=== PATIENT | male | born 1960 | race Caucasian/White ===

== ENCOUNTER 2023-04-17 06:30 | Outpatient (OUT) | payer OTHER, SELFPAY ==
[2023-04-17 06:52] LABS: Basophils Percent Auto 0.5 % (0.2-2.0); Eosinophils Absolute Auto 0.1 10^3/uL (0.0-0.7); Eosinophils Percent Auto 2.1 % (0.9-7.0); Hematocrit 43.3 % (42.0-54.0); Hemoglobin 14.8 g/dL (14.0-18.0); Immature Granulocytes Abs Auto 0.01 10^3/uL (0.00-0.03); Immature Granulocytes Pct Auto 0.2 % (0.0-0.5); Lymphocytes Absolute Auto 1.6 10^3/uL (1.2-3.8); Lymphocytes Percent Auto 28.1 % (20.5-60.0); Mean Corpuscular HGB Conc 34.2 g/dL (29.9-35.2); Mean Corpuscular Hemoglobin 30.5 pg (25.9-34.0); Mean Corpuscular Volume 89.1 fL (80.0-94.0); Mean Platelet Volume 9.9 fL (9.5-13.5); Monocytes Absolute Auto 0.5 10^3/uL (0.3-0.8); Monocytes Percent Auto 8.9 % (1.7-12.0); Neutrophils Absolute Auto 3.4 10^3/uL (1.4-6.5); Neutrophils Percent Auto 60.2 % (43.0-75.0); Platelet Count 201 10^3/uL (150-450); Red Blood Count 4.86 10^6/uL (4.70-6.10); Red Cell Distribution Width 12.8 % (11.0-15.0); White Blood Count 5.6 10^3/uL (4.0-11.0)
[2023-04-17 10:56] LABS: Alanine Aminotransferase 46 U/L (16-63); Albumin Globulin Ratio 1.1; Albumin Level 3.7 g/dL (3.4-5.0); Alkaline Phosphatase 54 U/L (46-116); Anion Gap 11.2; Aspartate Amino Transferase 23 U/L (15-37); Bilirubin Direct 0.1 mg/dL (0.0-0.2); Bilirubin Total 0.4 mg/dL (0.2-1.0); Carbon Dioxide 27.9 mmol/L (21.0-32.0); Chloride 106 mmol/L (98-107); Cholesterol 179 mg/dL (<=200); Estimated GFR (African America >60 (>=60); Estimated GFR (Non-African Ame 54 (>=60); Globulin 3.4 g/dL; Glucose 99 mg/dL (74-106); HDL Cholesterol 45 mg/dL (40-60); LDL Cholesterol Calculated 121.6 mg/dL; Potassium 4.1 mmol/L (3.5-5.1); Sodium 141 mmol/L (136-145); Total Protein 7.1 g/dL (6.4-8.2); Triglycerides 62 mg/dL (<=150); VLDL CHOLESTEROL 12.4 mg/dL
[2023-04-18 10:59] LABS: PSA, Free 0.87 ng/mL; Prostate Specific Ag 4.7 ng/mL (0.0-4.0)
== END 2023-04-17 06:31 ==
LOC: LAB 06:32
PROVIDERS: PCP Family Medicine; Visit Provider Family Medicine
DX: E78.00 Pure hypercholesterolemia, unspecified (principal)
CPT/HCPCS: 36415; 80048; 80061; 80076; 84153; 84154; 85025

== ENCOUNTER 2023-10-16 06:31 | Outpatient (OUT) | payer OTHER, SELFPAY ==
[2023-10-16 06:43] LABS: Basophils Absolute Auto 0.1 10^3/uL (0.0-0.1); Basophils Percent Auto 0.6 % (0.2-2.0); Eosinophils Absolute Auto 0.1 10^3/uL (0.0-0.7); Eosinophils Percent Auto 1.4 % (0.9-7.0); Hematocrit 41.2 % (42.0-54.0); Hemoglobin 14.3 g/dL (14.0-18.0); Immature Granulocytes Abs Auto 0.01 10^3/uL (0.00-0.03); Immature Granulocytes Pct Auto 0.1 % (0.0-0.5); Lymphocytes Absolute Auto 1.6 10^3/uL (1.2-3.8); Lymphocytes Percent Auto 20.2 % (20.5-60.0); Mean Corpuscular HGB Conc 34.7 g/dL (29.9-35.2); Mean Corpuscular Hemoglobin 30.6 pg (25.9-34.0); Mean Corpuscular Volume 88.2 fL (80.0-94.0); Mean Platelet Volume 9.1 fL (9.5-13.5); Monocytes Absolute Auto 0.7 10^3/uL (0.3-0.8); Neutrophils Absolute Auto 5.5 10^3/uL (1.4-6.5); Neutrophils Percent Auto 68.7 % (43.0-75.0); Platelet Count 258 10^3/uL (150-450); Red Blood Count 4.67 10^6/uL (4.70-6.10); Red Cell Distribution Width 12.2 % (11.0-15.0)
[2023-10-16 08:09] LABS: Alanine Aminotransferase 23 U/L (16-63); Albumin Globulin Ratio 0.9; Albumin Level 3.3 g/dL (3.4-5.0); Alkaline Phosphatase 66 U/L (46-116); Anion Gap 13.6; Aspartate Amino Transferase 11 U/L (15-37); BUN Creatinine Ratio 16.8; Bilirubin Direct 0.1 mg/dL (0.0-0.2); Bilirubin Total 0.5 mg/dL (0.2-1.0); Calcium 8.6 mg/dL (8.5-10.1); Carbon Dioxide 26.3 mmol/L (21.0-32.0); Chloride 105 mmol/L (98-107); Chol HDL Ratio 4.7; Cholesterol 193 mg/dL (<=200); Estimated GFR (African America >60 (>=60); Estimated GFR (Non-African Ame >60 (>=60); Globulin 3.7 g/dL; Glucose 95 mg/dL (74-106); HDL Cholesterol 41 mg/dL (40-60); LDL Cholesterol Calculated 142.6 mg/dL; Potassium 3.9 mmol/L (3.5-5.1); Sodium 141 mmol/L (136-145); Triglycerides 47 mg/dL (<=150); VLDL CHOLESTEROL 9.4 mg/dL
[2023-10-17 14:21] LABS: PSA, Free 0.82 ng/mL; Prostate Specific Ag 5.7 ng/mL (0.0-4.0)
== END 2023-10-16 06:32 | disposition home or self-care (01) ==
LOC: LAB 06:32
PROVIDERS: PCP Family Medicine; Visit Provider Family Medicine
DX: E78.00 Pure hypercholesterolemia, unspecified (principal); R97.20 Elevated prostate specific antigen [PSA]
CPT/HCPCS: 36415; 80048; 80061; 80076; 84153; 84154; 85025

== ENCOUNTER 2024-04-22 06:32 | Outpatient (OUT) | payer OTHER, SELFPAY ==
--- OUTSIDE RECORDS SUMMARY | 2024-04-22 06:35 | XMS_ITS | CCD ---
Author Organization [facility] Care Team Providers Care Stockbroker Name Role Phone JESUS MANUELR, DR CHURCHILL Admitting Unavailable OBERER, DR CHURCHILL Attending Unavailable OBERER, DR CHURCHILL Primary Care Unavailable OBERER, DR CHURCHILL Consulting Unavailable OBERER, DR CHURCHILL Admitting Unavailable OBERER, DR CHURCHILL Attending Unavailable OBERER, DR CHURCHILL Primary Care Unavailable OBERER, DR CHURCHILL Consulting Unavailable Tray Reese Unavailable TRAY REESE Primary Care Physician Unavailable Primary Care Provider Unavailmauricio e DO Tray Reese Primary Care Provider [phone] DO Eliezer Tejada Attending Provider Tray Reese Primary Care Unavailable Eliezer Tejada Attending Unavailable Eliezer Tejada Admitting Unavailable John LAYTON Attending Unavailable TRAY REESE Referring Unavailable John LAYTON Attending Unavailable Allergies Allergy Classification Reported Allergen(s) Allergy Type Date of Onset Reaction(s) Facility (7 sources) Lovastatin; Translations: [lovastatin] Drug Allergy Joint Pain [facility] Repository (6 sources) Pravastatin Drug Allergy ED,Leg weakness [facility] Other (7 sources) Decongestant; Translations: [Decongestant] Drug allergy Insomnia [facility] Repository (1 source) Pravastatin; Translations: [Pravachol] Drug Allergy [facility] Medications Current Medications Medication Drug Class(es) Dates Sig (Normalized) Sig (Original) Multivitamin preparation (1 source) Start: 05-03-2019 take 1 tablet by mouth once daily Multivitamin Active 1 TAB PO Daily May 03, 2019 12:00am Completed/Discontinued Medications Medication Drug Class(es) Dates Sig (Normalized) Sig (Original) Triamcinolone (12 sources) Corticosteroid Start: 08-21-2020 Kenalog -40 mg Aug, 40 mg Start: 03-23-2017 Kenalog -40 mg March, Problems Problem Classification Problem Date Documented Da te Episodic/Chronic Crushing injury or internal injury (3 sources) Injury of urethra; Translations: [Other injury of urethra, initial encounter] Onset: 06-12-2022 Episodic Disorders of lipid metabolism (11 sources) Pure hypercholesterolemia , unspecified; Translations: [Hypercholesterolemi a] Onset: 04-28-2022 01-26-2014 Chronic Osteoarthritis (16 sources) Osteoarthritis of knee; Translations: [Unilateral primary osteoarthritis, left knee] Onset: 04-17-2022 Resolved: 04-17-2022 Chronic Other connective tissue disease (3 sources) Synovial cyst of popliteal space; Translations: [Synovial cyst of popliteal space [[place]], left knee] Episodic Other connective tissue disease (2 sources) Impingement syndrome of shoulder region 01-26-2014 Episodic Other diseases of kidney and ureters (1 source) Disorder of kidney and ureter, unspecified Episodic Other gastrointestinal disorders (1 source) Occult blood in stools; Translations: [Other fecal abnormalities] 05-05-2019 Episodic Other male genital disorders (8 sources) Impotence; Translations: [Male erectile dysfunction, unspecified] 06-09-2022 Chronic Other male genital disorders (7 sources) Induratio penis plastica; Translations: [Induration penis plastica] Onset: 07-06-2022 06-09-2022 Chronic Other male genital disorders (1 source) Deviation of penis; Translations: [Other specified disorders of penis] Onset: 07-06-2022 07-06-2022 Chronic Other male genital disorders (5 sources) Other male erectile dysfunction; 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 of organic origin] Onset: 07-06-2022 07-06-2022 Chronic Other male genital disorders (1 source) Induration penis plastica Chronic Other non-traumatic joint disorders (2 sources) Shoulder pain 01-26-2014 Episodic Other nutritional; endocrine; and metabolic disorders (8 sources) Body mass index 30+ - obesity; Translations: [Obesity, unspecified] 06-12-2022 Chronic Other nutritional; endocrine; and metabolic disorders (2 sources) Obesity, unspecified Onset: 04-17-2022 Resolved: 04-17-2022 Chronic Other nutritional; endocrine; and metabolic disorders (1 source) Obese class I; Translations: [Body mass index (BMI) 34.0-34.9, adult] Onset: 06-12-2022 Chronic Other screening for suspected conditions (not mental disorders or infectious disease) (15 sources) Elevated prostate specific antigen [PSA]; Translations: [Encounter for screening for malignant neoplasm of prostate] Onset: 04-17-2022 Resolved: 04-27-2022 Episodic Other skin disorders (3 sources) Epidermoid cyst of skin; Translations: [Sebaceous cyst] Episodic Unclassified (1 source) Left lower quadrant abdominal swelling, mass and lump; Translations: [Left lower quadrant abdominal swelling, mass and lump] Onset: 07-16-2022 Results Test Name Value Interpretation Reference Range Facil ity Patient Letter FTon 2023 Patient Letter [facility] [address] [address] December 08, 2023 FATOU [place]ROYO [address] [place] [address] : 1960 Dear Fatou Arroyo, I am corresponding to you by certified mail because you have a medical condition, Elevated PSA, which requires follow up. It was recommended that you follow up with me but you cancelled your appointment. The concern is that prostate cancer can be present, given the PSA elevation. Please contact my office at your earliest convenience and we will reschedule your appointment so I can closely monitor your condition. I cannot be responsible for your urologic care if you do not follow up as recommended. Sincerely, John Layton M.D., FACS [facility] CALIN WATERS, John Davila [facility] Lab Reportson 11-11-2023 Lab Reports [id number] [facility] Sandeep 07-16-2022 L - -------- Specimen: [id number] Received: 07/16/22 Status: MAKI Holt Num: [id number] Spec Type: Surgical Subm Dr: Eliezer Tejada DO Tissues: A Soft Tissue/Surgical Margin-Other than Tumor,Mass,Lip or Katerine (LT LOWER ABDOM Procedures: HE Stain, Gross/Micro L4 -------- Age/ Patient Sex Location Account Attending Physician -------- Fatou Arroyo JR/Jesus BOWDEN [id number] Eliezer Tejada DO -------- SPEC NUM: [id number] RECD: 07/16/22 STATUS: MAKI HOLT NUM: [id number] ANGEL: 07/16/[address]: Eliezer Tejada DO ENTERED: 07/16/22-13[address] [facility] DR: [place] [facility] SPEC TYPE: Surgical DEPT: S ORDERED: HE Stain, Gross/Micro L4 ORDERED: HE Stain, Gross/Micro L4 Pathological Diagnosis Soft tissue, left lower abdomen, mass, excision: - Lipoma. Clinical Information Left lower abdominal soft tissue mass Gross Description Received in formalin labeled with the patient's name, number and left lower abdomen soft tissue mass is a 7.3 x 2.4 cm ellipse of ac-white skin excised to a depth of 2.5 cm. The specimen is inked and sectioned the cut surface is homogeneous, yellow-ac, lobular.. Grab Hooker sections are submitted in one cassette labeled A1. Microscopic Description One glass slide with H E stained material has been examined. The pathologist's interpretation is performed at [facility]. The microscopic findings support the above pathologic diagnosis. -------- Specimen: [id number] Received: 07/16/22 Status: MAKI Holt Num: [id number] Spec Type: Surgical Subm Dr: Eliezer Tejada DO Tissues: A Soft Tissue/Surgical Margin-Other than Tumor,Mass,Lip or Katerine (LT LOWER ABDOM Procedures: HE Stain, Gross/Micro L4 -------- Patient: Fatou Arroyo JR [id number] (Continued) -------- Specimen: [id number] Received: 07/16/22 (Continued) Signed (signature on file) Artie Flor MD 07/19/22 2318 -------- Specimen: [id number] Received: 07/16/22 Status: MAKI Holt Num: [id number] Spec Type: Surgical Subm Dr: Eliezer Tejada DO Tissues: A Soft Tissue/Surgical Margin-Other than Tumor,Mass,Lip or Katerine (LT LOWER ABDOM Procedures: HE Stain, Gross/Micro L4 -------- Patient: Fatou Arroyo JR [id number] (Continued) -------- Specimen: [id number] Received: 07/16/22 (Continued) CPT Codes 84144 -------- -------- Specimen: [id number] Received: 07/16/22 Status: MAKI Holt Num: [id number] Spec Type: Surgical Subm Dr: Eliezer Tejada DO Tissues: A Soft Tissue/Surgical Margin-Other than Tumor,Mass,Lip or Katerine (LT LOWER ABDOM Procedures: HE Stain, Gross/Micro L4 -------- Patient: Fatou Arroyo JR [id number] (Continued) -------- Signed (signature on file) Artie Flor MD 07/19/22 2318 [facility] CNOVon 07-06-2022 CNOV Office Visit (UROLMN ) FATOU ARROYO ([id number]) 1960 M Date Time Provider Department 07/06/22 10:00 AM FATOU GAFFNEY During your visit today, we recorded the following information about you: Pulse Blood pressure Weight Height 49/minute 165/90 104.3 kg 1.753 m Fatou Gaffney MD 07/06/2022 7:13 PM Signed [facility] NEW PATIENT HISTORY AND PHYSICAL EXAM PATIENT INFO: Fatou Arroyo 61 year old REFERRING M.D.: Jude Mei MD [address] [place] [facility] [address] This consult was requested by Dr. Mei for an opinion regarding peyronies disease, and my final recommendations will be communicated to the requesting health care provider by way of the shared medical record for internal providers or letter via the [employer] for external providers. HISTORY Chief Complaint: peyronie's disease HPI: 61 year old male with history of HLD, obesity, elevated PSA, and ED who was referred for management of Peyronie's disease. Patient saw Dr. Layton 06/12/22 for elevated PSA (4.6, fPSA 17.4%) - plan to monitor closely (return to clinic 4 months for recheck). Has always had a slight curve to the left of midline. Endorses a curve both to the left and dorsal which he first noticed about a year ago. Endorses significant length loss since he noticed the curve. Onset of curvature: 1 year ago Degree of primary curvature: not sure Direction of primary curvature: L Degree of secondary curvature: UK degrees Direction of secondary curvature: dorsal Known or probable prior injury or buckling event: no Pain with erections previously: yes Pain with erections in the past month: more of a pulling sensation with erections than pain now ED: Partial or insufficient erections partial or insufficient erections PDEI but does not really have satisfactory erections or has an erection that does not last. Him and his have not had intercourse in a long time because of this Prior therapies:none Is the patient able to have intercourse? N Personal history of Dupuytren's contracture or Ledderhose's disease none MEDICATIONS: No current outpatient medications on file. No current facility-administered medications for this visit. MEDICATION ALLERGIES: ALLERGIES No Known Allergies No past medical history on file. No past surgical history on file. FAMILY HISTORY: NEGATIVE: No related previous family history. FAMILY HISTORY 1st Degree Relative: no dupuytren's contracture of ledderhose REVIEW OF SYSTEMS: Constitutional: negative Eyes: negative Ear Nose and Throat: negative Cardiovascular: negative Respiratory: negative Gastrointestinal: negative Musculoskeletal: negative Integumentary: negative Neurological: negative Psychiatric: negative PHYSICAL EXAM: BP 165/90 (BP Site: Left Arm, BP Position: Sitting, BP Cuff Size: Regular Adult) Pulse (!) 49 Ht 175.3 cm (5' 9 ) Wt 104.3 kg (230 lb) BMI 33.97 kg/m? GENERAL: WNL nutrition, no deformities, healthy appearing HEAD AND NECK: NCAT RESP: Unlabored on room air CV: Reg rate ABDOMEN: Soft, NT, ND HERNIAS: None SKIN/LYMPH: No rash, lesions NEURO/PSYCH: Gait normal, AANDOx3 EXTREMITIES: Extremities normal. No deformities, edema, clubbing or skin discoloration. MEDICAL DECISION MAKING: (A1) IMPRESSION: (Diagnostic Possibilities) New or Established 1) Peyronie's disease 2) Organic erectile dysfunction (A2) PLAN: (Management Options) We thoroughly discussed the diagnosis of Peyronie's disease including the etiology and natural history of the disease. Only a small percentage of Peyronie's disease cases improve spontaneously. We discussed the management of Peyronie's disease including penile traction therapy, intralesional injections (Xiaflex) and surgical treatments including plication, and penile prosthesis implantation with straightening maneuvers. Risks and benefits for each therapy were discussed with the patient and all questions were answered. Prema Hanley MD Electronically signed STAFF NOTE: I evaluated the patient and personally participated in the kang components. I agree with the resident's findings and plan as documented and have discussed the case and management of the patient's care with the resident. Patient presents for evaluation of erectile curvature related to Peyronie's disease. Curvature has been present for about a year, dorsal and to the left. He also has some erectile dysfunction for which he uses Viagra with some effect, but he is unsure of the dose. This predated onset (more content not included)... Normal [facility] PSA, FREE AND TOTAL RATIOon 04-29-2022 % Free PSA 17.4 % Normal [facility] Comment on above: Result Comment: The table below lists the probability of prostate cancer for men with non-suspicious GINO results and total PSA between 4 and 10 ng/mL, by patient age (Kym et al, ANKUR 1998, 279:1542). % Free PSA 50-64 yr 65-75 yr 0.00-10.00% 56% 55% 10.01-15.00% 24% 35% 15.01-20.00% 17% 23% 20.01-25.00% 10% 20% >25.00% 5% 9% Please note: Kym et al did not make specific recommendations regarding the use of percent free PSA for any other population of men. Performed By: #### P SAFREE #### [facility] [address] [place] [address] Dr. Shelby Travis Prostate specific Ag [Mass/Vol] 4.6 ng/mL Critically high 0.0-4.0 [facility] Comment on above: Result Comment: Gabino PEREZ methodology. . According to the [employer], Serum PSA should decrease and remain at undetectable levels after radical prostatectomy. The AUA defines biochemical recurrence as an initial PSA value 0.2 ng/mL or greater followed by a subsequent confirmatory PSA value 0.2 ng/mL or greater. Values obtained with different assay methods or kits cannot be used interchangeably. Results cannot be interpreted as absolute evidence of the presence or absence of malignant disease. Performed By: #### P SAFREE #### [facility] [address] [place] [address] Dr. Shelby Travis PSA, Free 0.80 ng/mL Normal N/A [facility] Comment on above: Result Comment: Gabino nunn ECLIA methodology. Performed By: #### P SAFREE #### [facility] [address] [place] [address] Dr. Shelby Travis CBC AUTO DIFFon 04-25-2022 BASO # 0.0 103/ul Normal 0.0-0.1 [facility] Comment on above: Performed By: #### C BC #### [facility] [address] [place] [address] Dr. Shelby Travis Basophils/100 WBC (Bld) 0.3 % Normal 0.2-2.0 [facility] Comment on above: Performed By: #### C BC #### [facility] [address] [place] [address] Dr. Shelby Travis EO # 0.1 103/ul Normal 0.0-0.7 [facility] Comment on above: Performed By: #### C BC #### [facility] [address] [place] [address] Dr. Shelby Travis Eosinophils/100 WBC (Bld) 1.4 % Normal 0.9-7.0 [facility] Comment on above: Performed By: #### C BC #### [facility] [address] [place] [address] Dr. Shelby Travis Erythrocyte distribution width (RBC) [Ratio] 12.9 % Normal 11.0-15.0 [facility] Comment on above: Performed By: #### C BC #### [facility] [address] [place] [address] Dr. Shelby Travis Hematocrit (Bld) [Volume fraction] 44.5 % Normal 42.0-54.0 [facility] Comment on above: Performed By: #### C BC #### [facility] [address] [place] [address] Dr. Shelby Travis Hemoglobin (Bld) [Mass/Vol] 15.3 g/dL Normal 14.0-18.0 [facility] Comment on above: Performed By: #### C BC #### [facility] [address] [place] [address] Dr. Shelby Travis IG # 0.01 10e3/ul Normal 0.00-0.03 [facility] Comment on above: Performed By: #### C BC #### [facility] [address] [place] [address] Dr. Shelby Travis IG % 0.2 % Normal 0.0-0.5 [facility] Comment on above: Performed By: #### C BC #### [facility] [address] [place] [address] Dr. Shelby Travis LYMPH # 1.5 103/ul Normal 1.2-3.8 [facility] Comment on above: Performed By: #### C BC #### [facility] [address] [place] [address] Dr. Shelby Travis Lymphocytes/100 WBC (Bld) 25.5 % Normal 20.5-60.0 [facility] Comment on above: Performed By: #### C BC #### [facility] [address] [place] [address] Dr. Shelby Travis MANUAL DIFF REQ NO Normal [facility] Comment on above: Performed By: #### C BC #### [facility] [address] [place] [address] Dr. Shelby Travis MCH (RBC) [Entitic mass] 30.8 pg Normal 25.9-34.0 [facility] Comment on above: Performed By: #### C BC #### [facility] [address] [place] [address] Dr. Shelby Travis MCHC (RBC) [Mass/Vol] 34.4 g/dL Normal 29.9-35.2 [facility] Comment on above: Performed By: #### C BC #### [facility] [address] [place] [address] Dr. Shelby Travis MCV (RBC) [Entitic vol] 89.5 fL Normal 80.0-94.0 [facility] Comment on above: Performed By: #### C BC #### [facility] [address] [place] [address] Dr. Shelby Travis MONO # 0.9 103/ul Critically high 0.3-0.8 [facility] Comment on above: Performed By: #### C BC #### [facility] [address] [place] [address] Dr. Shelby Travis Monocytes/100 WBC (Bld) 14.5 % Critically high 1.7-12.0 [facility] Comment on above: Performed By: #### C BC #### [facility] [address] [place] [address] Dr. Shelby Travis NEUT # 3.4 103/ul Normal 1.4-6.5 [facility] Comment on above: Performed By: #### C BC #### [facility] [address] [place] [address] Dr. Shelby Travis Neutrophils/100 WBC (Bld) 58.1 % Normal 43.0-75.0 [facility] Comment on above: Performed By: #### C BC #### [facility] [address] [place] [address] Dr. Shelby Travis Platelet mean volume (Bld) [Entitic vol] 9.6 fL Normal 9.5-13.5 [facility] Comment on above: Performed By: #### C BC #### [facility] [address] [place] [address] Dr. Shelby Travis PLT 184 103/ul Normal 150-450 [facility] Comment on above: Performed By: #### C BC #### [facility] [address] [place] [address] Dr. Shelby Travis RBC 4.97 106/ul Normal 4.70-6.10 [facility] Comment on above: Performed By: #### C BC #### [facility] [address] [place] [address] Dr. Shelby Travis WBC 5.9 103/ul Normal 4.0-11.0 [facility] Comment on above: Performed By: #### C BC #### [facility] [address] [place] [address] Dr. Shelby Travis LIPID PROFILEon 04-25-2022 CHOL-HDL RATIO NORM SEE BELOW Normal [facility] Comment on above: Result Comment: 3.3 - 4.4 LOW RISK 4.4 - 7.1 AVERAGE RISK 7.1 - 11.0 MODERATE RISK >11.0 HIGH RISK Performed By: #### L IPID, BMP, LIVER #### [facility] [address] [place] [address] Dr. Shelby Travis Cholesterol [Mass/Vol] 192 mg/dL Normal <=200 [facility] Comment on above: Performed By: #### L IPID, BMP, LIVER #### [facility] [address] [place] [address] Dr. Shelby Travis Cholesterol in HDL [Mass/Vol] 40 mg/dL Normal 40-60 [facility] Comment on above: Performed By: #### L IPID, BMP, LIVER #### [facility] [address] [place] [address] Dr. Shelby Travis Cholesterol in LDL [Mass/Vol] 138.2 mg/dL Normal [facility] Comment on above: Performed By: #### L IPID, BMP, LIVER #### [facility] [address] [address] [address] Shelby Travis Cholesterol.total/ Cholesterol in HDL [Mass ratio] 4.8 {ratio} Normal [facility] Comment on above: Performed By: #### L IPID, BMP, LIVER #### [facility] [address] [address] [address] Shelby Travis HDL NORMAL > or = 60 mg/dl - LO W CARDIOVASCULAR RISK <40 mg/dl - HIGH CARDIOVASCULAR RISK Normal [facility] Comment on above: Performed By: #### L IPID, BMP, LIVER #### [facility] [address] [address] [address] Shelby Travis LDL CALC NORMAL SEE BELOW Normal [facility] Comment on above: Result Comment: <100 mg/dl OPTIMAL 100 - 129 mg/dl NEAR OR ABOVE OPTIMAL 130 - 159 mg/dl BORDERLINE HIGH 160 - 189 mg/dl HIGH >190 mg/dl VERY HIGH Performed By: #### L IPID, BMP, LIVER #### [facility] [address] [address] [address] Shelby Travis Triglyceride [Mass/Vol] 69 mg/dL Normal <=150 [facility] Comment on above: Performed By: #### L IPID, BMP, LIVER #### [facility] [address] [address] [address] Shelby Travis VLDL CALC 13.8 mg/dL Normal [facility] Comment on above: Performed By: #### L IPID, BMP, LIVER #### [facility] [address] [address] [address] Shelby Travis LIVER PROFILEon 04-25-2022 Albumin [Mass/Vol] 3.7 g/dL Normal 3.4-5.0 [facility] Comment on above: Performed By: #### L IPID, BMP, LIVER #### [facility] [address] [address] [address] Shelby Travis Albumin/Globulin [Mass ratio] 1.1 {ratio} Normal [facility] Comment on above: Performed By: #### L IPID, BMP, LIVER #### [facility] [address] [address] [address] Shelby Travis ALP [Catalytic activity/Vol] 52 U/L Normal 46-116 [facility] Comment on above: Performed By: #### L IPID, BMP, LIVER #### [facility] [address] [address] [address] Shelby Travis ALT [Catalytic activity/Vol] 32 U/L Normal 16-63 [facility] Comment on above: Performed By: #### L IPID, BMP, LIVER #### [facility] [address] [address] [address] Shelby Travis AST [Catalytic activity/Vol] 20 U/L Normal 15-37 [facility] Comment on above: Performed By: #### L IPID, BMP, LIVER #### [facility] [address] [place] [address] Dr. Shelby Travis BILI, CONJUGATED 0.1 mg/dL Normal 0.0-0.2 [facility] Comment on above: Performed By: #### L IPID, BMP, LIVER #### [facility] [address] [address] [address] Shelby Travis Bilirubin [Mass/Vol] 0.6 mg/dL Normal 0.2-1.0 [facility] Comment on above: Performed By: #### L IPID, BMP, LIVER #### [facility] [address] [place] [address] Dr. Shelby Travis Globulin (S) [Mass/Vol] 3.3 g/dL Normal [facility] Comment on above: Performed By: #### L IPID, BMP, LIVER #### [facility] [address] [place] [address] Dr. Shelby Travis Protein [Mass/Vol] 7.0 g/dL Normal 6.4-8.2 [facility] Comment on above: Performed By: #### L IPID, BMP, LIVER #### [facility] [address] [address] [address] Shelby Travis PROF CHEM 8 (BAS METB)on Anion gap [Moles/Vol] 12.6 mmol/L Normal [facility] Comment on above: Performed By: #### L IPID, BMP, LIVER #### [facility] [address] [address] [address] Shelby Travis Calcium [Mass/Vol] 8.4 mg/dL Critically low 8.5-10.1 Th e [facility] Comment on above: Performed By: #### L IPID, BMP, LIVER #### [facility] [address] [address] [address] Shelby Travis Chloride [Moles/Vol] 105 mmol/L Normal 98-107 [facility] Comment on above: Performed By: #### L IPID, BMP, LIVER #### [facility] [address] [place] [address] Dr. Shelby Travis CO2 [Moles/Vol] 25.6 mmol/L Normal 21.0-32.0 [facility] Comment on above: Performed By: #### L IPID, BMP, LIVER #### [facility] [address] [place] [address] Dr. Shelby Travis Creatinine [Mass/Vol] 1.29 mg/dL Normal 0.70-1.30 [facility] Comment on above: Performed By: #### L IPID, BMP, LIVER #### [facility] [address] [place] [address] Dr. Shelby Travis EGFR-AF CZECH >60 Normal >=60 [facility] Comment on above: Performed By: #### L IPID, BMP, LIVER #### [facility] [address] [place] [address] Dr. Shelby Travis EGFR-NON AF CZECH 57 mL/min/1.73m2 Critically low >=60 [facility] Comment on above: Performed By: #### L IPID, BMP, LIVER #### [facility] [address] [place] [address] Dr. Shelby Travis Glucose [Mass/Vol] 93 mg/dL Normal 74-106 [facility] Comment on above: Performed By: #### L IPID, BMP, LIVER #### [facility] [address] [address] [address] Shelby Travis Potassium [Moles/Vol] 4.2 mmol/L Normal 3.5-5.1 [facility] Comment on above: Performed By: #### L IPID, BMP, LIVER #### [facility] [address] [place], [place] [address] Dr. Shelby Travis Sodium [Moles/Vol] 139 mmol/L Normal 136-145 [facility] Comment on above: Performed By: #### L IPID, BMP, LIVER #### [facility] [address] [address] [address] Shelby Travis Urea nitrogen [Mass/Vol] 18.0 mg/dL Normal 7.0-18.0 [facility] Comment on above: Performed By: #### L IPID, BMP, LIVER #### [facility] [address] [address] [address] Shelby Travis Urea nitrogen/Creatinin e [Mass ratio] 14.0 mg/mg Normal [facility] Comment on above: Performed By: #### L IPID, BMP, LIVER #### [facility] [address] [address] [address] Shelby Travis Vital Signs Date Time Vital Sign Value Performing Clinician Facility 04-26-2023 15:15-0400 Body height 175.26 cm Tray Obrachaelr Other [facility] Other 04-26-2023 15:15-0400 Body mass index (BMI) [Ratio] 33.05 kg/m2 Tray Oberer Other [facility] Other 04-26-2023 15:15-0400 Body temperature 97.8 [degF] Tray Oberer Other [facility] Other 04-26-2023 15:15-0400 Body weight 101.52 kg Tray Oberer Other [facility] Other 04-26-2023 15:15-0400 Diastolic blood pressure 73 mm[Hg] Tray Oberer Other [facility] Other 04-26-2023 15:15-0400 Respiratory rate 16 /min Tray Oberer Other [facility] Other 04-26-2023 15:15-0400 SaO2% (BldA) [Mass fraction] 99 % Tray Oberer Other [facility] Other 04-26-2023 15:15-0400 Systolic blood pressure 128 mm[Hg] Tray Oberer Other [facility] Other 04-17-2022 17:00-0400 Body height 175.26 cm Tray Oberer Other [facility] Other 04-17-2022 17:00-0400 Body mass index (BMI) [Ratio] 35.16 kg/m2 Tray Oberer Other [facility] Other 04-17-2022 17:00-0400 Body temperature 98.4 [degF] Tray Oberer Other [facility] Other 04-17-2022 17:00-0400 Body weight 108 kg Tray Oberer Other [facility] Other 04-17-2022 17:00-0400 Diastolic blood pressure 72 mm[Hg] Tray Oberer Other [facility] Other 04-17-2022 17:00-0400 Respiratory rate 16 /min Tray Oberer Other [facility] Other 04-17-2022 17:00-0400 SaO2% (BldA) [Mass fraction] 96 % Tray Oberer Other [facility] Other 04-17-2022 17:00-0400 Systolic blood pressure 138 mm[Hg] Tray Oberer Other [facility] Other Encounters Encounter Date Encounter Type Care Provider Facility Start: 05-09-2024 ambulatory John LAYTON Facility :[facility] Start: 11-11-2023 End: 11-11-2023 ambulatory Tray Oberer Other [facility] Other Start: 11-11-2023 Telephone encounter Tray Oberer [facility] [place] Start: 11-09-2023 End: 11-10-2023 ambulatory TRAY OBERER Facility:[facility] Start: 11-09-2023 End: 11-09-2023 Patient encounter procedure John LAYTON [facility] Start: 10-18-2023 End: 10-18-2023 ambulatory Tray Oberer Other [facility] Other Start: 10-18-2023 Telephone encounter Tray Oberer [facility] [place] Start: 04-26-2023 End: 04-26-2023 ambulatory Tray Oberer Other [facility] Other Start: 04-26-2023 Encounter for genera l adult medical examination without abnormal findings Tray Oberer [facility] [place] Start: 04-26-2023 Periodic preventive med est patient 40-64yrs Tray Oberer [facility] [place] Start: 03-15-2023 End: 03-15-2023 ambulatory Tray Oberer Other [facility] Other Start: 03-15-2023 Telephone encounter [facility] Oberer [facility] Start: 07-16-2022 End: 07-16-2022 ambulatory Tray Reese Facility:[facility] Start: 07-16-2022 End: 07-16-2022 Departed Referred DO Tray Reese Work Phone: [facility] [place] Start: 07-06-2022 ambulatory Fatou smith MD Work Phone: Urology Start: 06-12-2022 End: 06-12-2022 Patient encounter procedure John Giovanni LAYTON [facility] Start: 04-28-2022 Encounter for genera l adult medical examination without abnormal findings DR TRAY REESE [facility] Start: 04-27-2022 End: 04-28-[address] TRAY REESE Facility:[facility] Start: 04-27-2022 Telephone [facility] Start: 04-25-2022 End: 04-26-[address] TRAY REESE Facility:[facility] Start: 04-25-2022 End: 04-26-2022 Encounter for general adult medical examination without abnormal findings DR TRAY REESE Facility:[facility] Start: 04-17-2022 End: 04-17-2022 ambulatory Tray Reese Other [facility] Other Start: 04-17-2022 Encounter for genera l adult medical examination without abnormal findings Tray Reese [facility] Start: 04-17-2022 Periodic preventive med est patient 40-64yrs [facility] Procedures Date Procedure Procedure Detail Performing Clinician Start: 04-25-[address] TRAY CURRAN Comment on above: Performed By: #### P [facility] #### [facility] [address] [place] [address] Dr. Shelby Travis Extraction of wisdom tooth [place] History of tonsillectomy Gre russellyohan CALIN Plan of Treatment Date Care Activity Detail Author Start: 07-16-2022 Influenza vaccination INFLUENZA (#1) [facility] Start: 2015 PROSTATE CANCER SCREENING DISCUSSION PROSTATE CANCER SCREENING DISCUSSION [facility] Start: 2010 SHINGRIX VACCINE (1 of 2) SHINGRIX VACCINE (1 of 2) [facility] Start: 2005 COLOGUARD (FIT-DNA) COLOGUARD (FIT-D NA) [facility] Start: 2005 Colonoscopy COLONOSCOPY [facility] Start: 2005 COLORECTAL CANCER SCREENING COLORECTAL CANCER SCREENING [facility] Start: [address] COLONOGRAPHY [facility] Start: 2005 DIABETES SCREEN DIABETES SCREEN [facility] Start: 2005 FECAL OCCULT BLOOD FECAL OCCULT BLOO D [facility] Start: 2005 SIGMOIDOSCOPY SIGMOIDOSCOPY [facility] Start: 1995 LIPID SCREEN LIPID SCREEN [facility] Start: 1979 Urine microalbumin profile DTAP,TDAP,TD (1 - Tdap) [facility] Start: 1978 HEPATITIS C SCREENING HEPATITIS C SC REENING [facility] Start: 1978 HIV SCREENING HIV SCREENING [facility] Start: 1972 Adult depression screening assessment DEPRESSION SCREENING [facility] Start: 05-25-1961 COVID-19 VACCINE (#1) COVID-19 VACCI NE (#1) [facility] URINALYSIS, REFLEX MICROSCOPIC URINALYSIS, REFLEX MICROSCOPIC Lab Routine Screening for genitourinary condition Ordered: 07/06/2022 [facility] Work Phone: Comment on above: Ordered: 07/06/2022 Immunizations Immunization Date Immunization Notes Care Provider Tenzin armenta 05-11-2014 tetanus toxoid, reduced diphtheria toxoid, and acellular pertussis vaccine, adsorbed Tray Oberer Other [facility] 06-06-2009 DTaP, unspecified formulation John LAYTON [facility] 06-06-2009 measles, mumps and rubella virus vaccine John LAYTON [facility] 06-06-2009 poliovirus vaccine, unspecified formulation John [facility] NEGATED: Highlighted row has not occurred!06-12-2022 SARS-CoV-2 mRNA (tozinameran 5y-11y) vaccine John LAYTON [facility] NEGATED: Highlighted row has not occurred!04-17-2022 influenza, seasonal, injectable Patient Objection Tray Oberer Other [facility] Other NEGATED: Highlighted row has not occurred!04-16-2020 influenza, seasonal, injectable Patient Objection Tray Oberer Other [facility] Other NEGATED: Highlighted row has not occurred!04-13-2019 influenza, seasonal, injectable Patient Objection Tray Oberer Other [facility] Other Payers Date Payer Category Payer Self-pay [id number] 2022 Unknown [id number] 2021 Private Health Insurance DEO LAST OA [id number] 2021-Present [phone] [id number] [place] [id number] Open Access [id number] 1960 Unknown [id number] 1960 Unknown [id number] 1960 Unknown [id number] 1960 Unknown [id number] 1959 Private Health Insurance [id number] Unknown [id number] Social History Date Type Detail Facility Sex Assigned At [facility] Other Tobacco smoking status No Smoking Status Entered [facility] Tobacco smoking status [facility] Tobacco smoking consumption unknown [facility] Start: 1960 Sex Assigned At Not on file [facility] Start: 06-26-2022 End: 07-06-2022 Exposure to SARS-CoV-2 (event) Not sure [facility] Work Phone: Start: 05-05-2019 Tobacco smoking status HIIS Ex-smoker (finding) [facility] Start: 1960 Sex Assigned At Male F [facility] Tobacco smoking status No Smoking Status Entered [facility] Functional Status Date Assessment Result Facility 06-12-2022 Functional Status N/A [facility] Clinical Notes 08-15-2006 to 10-22-2023 Note Date & Type Note Facility 10-22-2023 Hospital Discharg e instructions Follow Up Care 10/22/2023 14:15:28 With:CALIN WATERS, John Davila, URL Address: [address] [place] [id number] When: Unknown [facility] 10-18-2023 Evaluation note Encounter Date Diagnosis Assessment Notes Oct, Elevated PSA (ICD-10 - R97.20) [facility] Other 06-12-2023 Evaluation note* Encounter Date Diagnosis Assessment Notes Treatment Notes Treatment Clinical Notes Apr, Elevated PSA (ICD-10 - R97.20) We again discussed the controversies of prostate cancer screening. His PSA is borderline high, discussed mathematically predicted 17% chance of prostate cancer. Again discussed, although I am not a urologist, approach would be watchful waiting versus further work-up including possible prostate biopsy. He wants to simply monitor PSA and I recommended we begin doing that every 6 months. He does not want to follow-up with Dr. Layton unless things would change. Apr, Renal insufficiency (ICD-10 - N28.9) His BUN and creatinine are both borderline high. At this point I think we can simply follow yearly Apr, Obesity (BMI 30-39.9 ) (ICD-10 - E66.9) Positive weight loss. Further diet, exercise, weight loss encouraged Apr, Hypercholesterolemia (ICD-10 - E78.00) His CV risk score is low, previously did not tolerate statins. Continue nondrug approach as above. He is excited that his cholesterol is lower than before both total and LDL Apr, Peyronie's disease (ICD-10 - N48.6) He feels doing well and does not want to follow with [facility] urology Apr, Well adult exam (ICD -10 - Z00.00) Well care discussedLast colonoscopy 2018 (up-to-date). Prostate cancer screening as above.He continues to not want any vaccines.Healthy diet, exercise, weight encouragedHe will get us a copy of his work wellness papers for completion Apr, Other Repeat total PS A in [facility] at [facility] 1 year preceded by fasting CBC, BMP, hepatic panel, lipid profile, total PSA at [facility] and sooner as needed or pending above. [facility] Other 05-01-2023 Evaluation note* Encounter Date Diagnosis Assessment Notes Treatment Notes Treatment Clinical Notes March, Hypercholesterolemia (ICD-10 - E78.00) March, Elevated PSA (ICD-10 - R97.20) [facility] Other 08-22-2022 NotePatient Outreach (UROLMN) FATOU ARROYO ([id number]) 1960 Date Time Provider Department 07/06/22 FATOU GAFFNEY URO[facility] During your visit today, we recorded the following information about you: Allergies As of Date: 07/06/2022 (No Known Allergies) Date Reviewed: 07/06/2022 Reviewed by: Franci Fraga Ma - Fully Assessed Visit Diagnosis:Screening for genitourinary condition [Z13.89] Order(s):URINALYSIS, REFLEX MICROSCOPIC [ONN2059] Order #: [id number]. 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 Author Type: Physician Type: Progress Notes Filed: 07/06/2022 7:13 PM Note Text: [facility] NEW PATIENT HISTORY AND PHYSICAL EXAM PATIENT INFO: Fatou Arroyo 61 year old REFERRING M.D.: Jude Mei MD [address] [facility] [address] This consult was requested by Dr. Mei for an opinion regarding peyronies disease, and my final recommendations will be communicated to the requesting health care provider by way of the shared medical record for internal providers or letter via the [employer] for external providers. HISTORY Chief Complaint: peyronie's disease HPI: 61 year old male with history of HLD, obesity, elevated PSA, and ED who was referred for management of Peyronie's disease. Patient saw Dr. Layton 06/12/22 for elevated PSA (4.6, fPSA 17.4%) - plan to monitor closely (return to clinic 4 months for recheck). Has always had a slight curve to the left of midline. Endorses a curve both to the left and dorsal which he first noticed about a year ago. Endorses significant length loss since he noticed the curve. Onset of curvature: 1 year ago Degree of primary curvature: not sure Direction of primary curvature: L Degree of secondary curvature: UK degrees Direction of secondary curvature: dorsal Known or probable prior injury or buckling event: no Pain with erections previously: yes Pain with erections in the past month: more of a pulling sensation with erections than pain now ED: Partial or insufficient erections partial or insufficient erections PDEI but does not really have satisfactory erections or has an erection that does not last. Him and his have not had intercourse in a long time because of this Prior therapies:none Is the patient able to have intercourse? N Personal history of Dupuytren's contracture or Ledderhose's disease none MEDICATIONS: No current outpatient medications on file. No current facility-administered medications for this visit. MEDICATION ALLERGIES: ALLERGIES No Known Allergies No past medical history on file. No past surgical history on file. FAMILY HISTORY: NEGATIVE: No related previous family history. FAMILY HISTORY 1st Degree Relative: no dupuytren's contracture of ledderhose REVIEW OF SYSTEMS: Constitutional: negative Eyes: negative Ear Nose and Throat: negative Cardiovascular: negative Respiratory: negative Gastrointestinal: negative Musculoskeletal: negative Integumentary: negative Neurological: negative Psychiatric: negative PHYSICAL EXAM: BP 165/90 (BP Site: Left Arm, BP Position: Sitting, BP Cuff Size: Regular Adult) Pulse (!) 49 Ht 175.3 cm (5' 9 ) Wt 104.3 kg (230 lb) BMI 33.97 kg/m? GENERAL: WNL nutrition, no deformities, healthy appearing HEAD AND NECK: NCAT RESP: Unlabored on room air CV: Reg rate ABDOMEN: Soft, NT, ND HERNIAS: None SKIN/LYMPH: No rash, lesions NEURO/PSYCH: Gait normal, AANDOx3 EXTREMITIES: Extremities normal. No deformities, edema, clubbing or skin discoloration. MEDICAL DECISION MAKING: (A1) IMPRESSION: (Diagnostic Possibilities) New or Established 1) Peyronie's disease 2) Organic erectile dysfunction (A2) PLAN: (Management Options) We thoroughly discussed the diagnosis of Peyronie's disease including the etiology and natural history of the disease. Only a small percentage of Peyronie's disease cases improve spontaneously. We discussed the management of Peyronie's disease including penile traction therapy, intralesional injections (Xiaflex) and surgical treatments including plication, and penile prosthesis implantation with straightening maneuvers. Risks and benefits for each therapy were discussed with the patient and all questions were answered. Prema Hanley MD Electronically signed STAFF NOTE: I evaluated the patient and personally participated in the kang components. I agree with the resident's findings and plan as documented and have discussed the case and management of the patient's care with the resident. Patient presents for evaluation of erectile curvature related to Peyronie's disease. Curvature has been present for about a year, dorsal and to the left. He also has some erectile dysfunction for which he uses Viagra with some effect, but he is unsure of the dose. This predated onset of curvature. When erections are rigid he is able to have intercourse. On examination the penis is circumcised, primarily has dorsal band-like tunical scarring along the shaft, some more focal thickening near midshaft. ASSESSMENT/PLAN: 1. Peyrokiara's d (more content not included)...[facility] 06-12-2022 Hospital Discharge instructions Patient Education 06/12/2022 09:22:38 Prostate-Specific Antigen Test Prostate-Specific Antigen Test Why am I having this test? The prostate-specific antigen (PSA) test is a screening test for prostate cancer. It can identify early signs of prostate cancer, which may allow for more effective treatment. Your health care provider may recommend that you have a PSA test starting at age 40 or that you have one earlier or later, depending on your risk factors for prostate cancer. You may also have a PSA test: To monitor treatment of prostate cancer. To check whether prostate cancer has returned after treatment. If you have signs of other conditions that can affect PSA levels, such as: ?An enlarged prostate that is not caused by cancer (benign prostatic hyperplasia, BPH). This condition is very common in older men. ?A prostate infection. What is being tested? This test measures the amount of PSA in your blood. PSA is a protein that is made in the prostate. The prostate naturally produces more PSA as you age, but very high levels may be a sign of a medicalcondition. What kind of sample is taken? A blood sample is required for this test. It is usually collected by inserting a needle into a blood vessel or by sticking a finger with a small needle. Blood for this test should be drawn before having an exam of the prostate. How do I prepare for this test? Do not ejaculate starting 24 hours before your test, or as long as told by your health care provider. Tell a health care provider about: Any allergies you have. All medicines you are taking, including vitamins, herbs, eye drops, creams, and [id number] medicines. This also includes: ?Medicines to assist with hair growth, such as finasteride. ?Any recent exposure to a medicine called diethylstilbestrol. Any blood disorders you have. Any recent procedures you have had, especially any procedures involving the prostate or rectum. Any medical conditions you have. Any recent urinary tract infections (UTIs) you have had. How are the results reported? Your test results will be reported as a value that indicates how much PSA is in your blood. This will be given as nanograms of PSA per milliliter of blood (ng/mL). Your health care provider will compare your results to normal ranges that were established after testing a large group of people (reference ranges). Reference ranges may vary among labs and hospitals. PSA levels vary from person to person and generally increase with age. Because of this variation, there is no single PSA value that is considered normal for everyone. Instead, PSA reference ranges are used to describe whether your PSA levels are considered low or high (elevated). Common reference ranges are: Low: 0 2.5 ng/mL. Slightly to moderately elevated: 2.6 10.0 ng/mL. Moderately elevated: 10.0 19.9 ng/mL. Significantly elevated: 20 ng/mL or greater. Sometimes, the test results may report that a condition is present when it is not present (false-positive result). What do the results mean? A test result that is higher than 4 ng/mL may mean that you are at an increased risk for prostate cancer. However, a PSA test by itself is not enough to diagnose prostate cancer. High PSA levels may also be caused by the natural aging process, prostate infection, or BPH. PSA screening cannot tell you if your PSA is high due to cancer or a different cause. A prostate biopsy is the only way to diagnose prostate cancer. A risk of having the PSA test is diagnosing and treating prostate cancer that would never have caused any symptoms or problems (overdiagnosis and overtreatment). Talk with your health care provider about what your results mean. Questions to ask your health care provider Ask your health care provider, or the department that is doing the test: When will my results be ready? How will I get my results? What are my treatment options? What other tests do I need? What are my next steps? Summary The prostate-specific antigen (PSA) test is a screening test for prostate cancer. Your health care provider may recommend that you have a PSA test starting at age 40 or that you have one earlier or later, depending on your risk factors for prostate cancer. A test result that is higher than 4 ng/mL may mean that you are at an increased risk for prostate cancer. However, elevated levels can be caused by a number of conditions other than prostate cancer. Talk with your health care provider about what your results mean. This information is not intended to replace advice given to you by your health care provider. Make sure you discuss any questions you have with your health care provider. Document Released: 12/04/2005 Document Revised: 10/14/2018 Document Reviewed: 08/08/2018 [email or web address] Patient Education 2020 [employer]. 06/12/2022 09:22:32 Calorie Counting for Weight Loss Calorie Counting for Weight Loss Calories are units of energy. Your body needs a certain amount of calories from food to keep you going throughout the day. When you eat more calories than your body needs, your body stores the extra calories as fat. When you eat fewer calories than your body needs, your body romero fat to get the energy it needs. Calorie counting means keeping track of how many calories you eat and drink each day. Calorie counting can be helpful if you need to lose weight. If you make sure to eat fewer calories than your bodyneeds, you should lose weight. Ask your health care provider what a healthy weight is for you. For calorie counting to work, you will need to eat the right number of calories in a day in order to lose a healthy amount of weight per week. A dietitian can help you determine how many calories youneed in a day and will give you suggestions on how to reach your calorie goal. A healthy amount of weight to lose per week is usually 1 2 lb (0.5 0.9 kg). This usually means thatyour daily calorie intake should be reduced by 500 750 calories. Eating 1,200 1,500 calories per day can help most women lose weight. Eating 1,500 1,800 calories per day can help most men lose weight. What is my plan? My goal is to have calories per day. If I have this many calories per day, I should lose around pounds per week. What do I need to know about calorie counting? In order to meet your daily calorie goal, you will need to: Find out how many calories are in each food you would like to eat. Try to do this before you eat. Decide how much of the food you plan to eat. Write down what you ate and how many calories it had. Doing this is called keeping a food log. To successfully lose weight, it is important to balance calorie counting with a healthy lifestyle that includes regular activity. Aim for 150 minutes of moderate exercise (such as walking) or 75 minutes of vigorous exercise (such as running) each week. Where do I find calorie information? The number of calories in a food can be found on a Nutrition Facts label. If a food does not have aNutrition Facts label, try to look up the calories online or ask your dietitian for help. Remember that calories are listed per serving. If you choose to have more than one serving of a food, you will have to multiply the calories per serving by the amount of servings you plan to eat. Forexample, the label on a package of bread might say that a serving size is 1 slice and that there are 90 calories in a serving. If you eat 1 slice, you will have eaten 90 calories. If you eat 2 slices, you will have eaten 180 calories. How do I keep a food log? Immediately after each meal, record the following information in your food log: What you ate. Don't forget to include toppings, sauces, and other extras on the food. How much you ate. This can be measured in cups, ounces, or number of items. How many calories each food and drink had. The total number of calories in the meal. Keep your food log near you, such as in a small notebook in your pocket, or use a mobile willem or website. Some programs will calculate calories for you and show you how many calories you have left forthe day to meet your goal. What are some calorie counting tips? Use your calories on foods and drinks that will fill you up and not leave you hungry: ?Some examples of foods that fill you up are nuts and nut butters, vegetables, lean proteins, and high-fiber foods like whole grains. High-fiber foods are foods with more than 5 g fiber per serving. ?Drinks such as sodas, specialty coffee drinks, alcohol, and juices have a lot of calories, yet do not fill you up. Eat nutritious foods and avoid empty calories. Empty calories are calories you get from foods or beverages that do not have many vitamins or protein, such as candy, sweets, and soda. It is better to have a nutritious high-calorie food (such as an avocado) than a food with few nutrients (such as a bag of chips). Know how many calories are in the foods you eat most often. This will help you calculate calorie counts faster. Pay attention to calories in drinks. Low-calorie drinks include water and unsweetened drinks. Pay attention to nutrition labels for low fat or fat free foods. These foods sometimes have thesame amount of calories or more calories than the full fat versions. They also often have added sugar, starch, or salt, to make up for flavor that was removed with the fat. Find a way of tracking calories that works for you. Get creative. Try different apps or programs ifwriting down calories does not work for you. What are some portion control tips? Know how many calories are in a serving. This will help you know how many servings of a certain food you can have. Use a measuring cup to measure serving sizes. You could also try weighing out portions on a kitchenscale. With time, you will be able to estimate serving sizes for some foods. Take some time to put servings of different foods on your favorite plates, bowls, and cups so you know what a serving looks like. Try not to eat straight from a bag or box. Doing this can lead to overeating. Put the amount you would like to eat in a cup or on a plate to make sure you are eating the right portion. Use smaller plates, glasses, and bowls to prevent overeating. Try not to multitask (for example, watch TV or use your computer) while eating. If it is time to eat, sit down at a table and enjoy your food. This will help you to know when you are full. It will also help you to be aware of what you are eating and how much you are eating. What are tips for following this plan? Reading food labels Check the calorie count compared to the serving size. The serving size may be smaller than what youare used to eating. Check the source of the calories. Make sure the food you are eating is high in vitamins and proteinand low in saturated and trans fats. Shopping Read nutrition labels while you shop. This will help you make healthy decisions before you decide to purchase your food. Make a grocery list and stick to it. Cooking Try to cook your favorite foods in a healthier way. For example, try baking instead of frying. Use low-fat dairy products. Meal planning Use more fruits and vegetables. Half of your plate should be fruits and vegetables. Include lean proteins like poultry and fish. How do I count calories when eating out? Ask for smaller portion sizes. Consider sharing an entree and sides instead of getting your own entree. If you get your own entree, eat only half. Ask for a box at the beginning of your meal and put the rest of your entree in it so you are not tempted to eat it. If calories are listed on the menu, choose the lower calorie options. Choose dishes that include vegetables, fruits, whole grains, low-fat dairy products, and lean protein. Choose items that are boiled, broiled, grilled, or steamed. Stay away from items that are buttered,battered, fried, or served with cream sauce. Items labeled crispy are usually fried, unless stated otherwise. Choose water, low-fat milk, unsweetened iced tea, or other drinks without added sugar. If you want an alcoholic beverage, choose a lower calorie option such as a glass of wine or light beer. Ask for dressings, sauces, and syrups on the side. These are usually high in calories, so you should limit the amount you eat. If you want a salad, choose a garden salad and ask for grilled meats. Avoid extra toppings like pereira, cheese, or fried items. Ask for the dressing on the side, or ask for olive oil and vinegar or lemon to use as dressing. Estimate how many servings of a food you are given. For example, a serving of cooked rice is cup orabout the size of half a baseball. Knowing serving sizes will help you be aware of how much food you are eating at restaurants. The list below tells you how big or small some common portion sizes arebased on everyday objects: ?1 oz 4 stacked dice. ?3 oz 1 deck of cards. ?1 tsp 1 . ?1 Tbsp a ping-pong ball. ?2 Tbsp 1 ping-pong ball. ? cup baseball. ?1 cup 1 baseball. Summary Calorie counting means keeping track of how many calories you eat and drink each day. If you eat fewer calories than your body needs, you should lose weight. A healthy amount of weight to lose per week is usually 1 2 lb (0.5 0.9 kg). This usually means reducing your daily calorie intake by 500 750 calories. The number of calories in a food can be found on a Nutrition Facts label. If a food does not have aNutrition Facts label, try to look up the calories online or ask your dietitian for help. Use your calories on foods and drinks that will fill you up, and not on foods and drinks that will leave you hungry. Use smaller plates, glasses, and bowls to prevent overeating. This information is not intended to replace advice given to you by your health care provider. Make sure you discuss any questions you have with your health care provider. Document Released: 11/01/2006 Document Revised: 07/21/2019 Document Reviewed: 10/01/2017 [email or web address] Patient Education 2020 [employer]. Follow Up Care 05/06/2022 10:37:31 With:CALIN WATERS, John Davila, URL Address: When:Within 4 Year(s) Comments:w/PSA F/T [facility] 06-13-2022 Evaluation note* Encounter Date Diagnosis Assessment Notes Treatment Notes Treatment Clinical Notes Apr, Elevated PSA (ICD-10 - R97.20) [facility] Other 06-03-2022 Evaluation note* Encounter Date Diagnosis Assessment Notes Treatment Notes Treatment Clinical Notes Apr, Prostate cancer screening (ICD-10 - Z12.5) We again discussed the controversies of prostate cancer screening and arguments for and against. He had previously declined prostate cancer screening. No family history. This year he elected to pursue PSA and we will order it Apr, Wellness examination (ICD-10 - Z00.00) Well care discussed Prostate cancer screening ordered as above. Colon cancer screening up-to-date (colonoscopy 2018) I again discussed recommended vaccines including flu shot, COVID-vaccine, Shingrix. He again remains reluctant. I told him they are all readily available at the drugstore without a prescription and I wrote down the names of the recommended vaccines for him. Diet, regular exercise, weight loss encouraged. See dictation below Apr, Colon cancer screening (ICD-10 - Z12.11) See dictation above Apr, Obesity (BMI 30-39.9) (ICD-10 - E66.9) We had a long talk about his weight. Discussed losing requires formal diet with calorie restriction and generally counting portion sizes or calories. He states his sons are going to help get him a diet. I did offer dietitian referral and/or bariatric physician referral locally. He declined. He will call if he changes his mind. Regular scheduled exercise recommended. Discussed current recommendation for all adults is 1 hour daily but starting something regularly even if not at the above level is still a start. Apr, Generalized osteoarthritis (ICD-10 - M15.9) I simply note this on exam. He did not complain of arthritis today Apr, Other Schedule fastin g CBC, BMP, hepatic panel, lipid profile, PSA soon. He is going to get them done at [facility]. He is going to send us his work wellness form for completion RTO 1 year preceded by fasting labs (I will use the above lab results to determine what he needs next year) and sooner as needed or pending above. [facility] Other 10-01-2006 History general Narrative - Reported* Type Description Date Medical History Hypercholesterolemia Medical History OA Rt Shoulder (X-Ray) Surgical History Tonsillectomy 1962 Surgical History Bone graphs below teeth Surgical History Vascectomy 08/2006 Surgical History right shoulder surgery 2008 [facility] Other Evaluation + Plan note Future Appointments Appointment Date:09/25/2022 08:00:00 AM Scheduled Provider:John LAYTON MD Location:[facility] Appointment Type:URO Office Visit Diagnostic Tests Pending * PSA Free & Total 06/12/22 [facility] Evaluation note* Diagnosis Screening for genitourinary condition Screening for other and unspecified genitourinary condition documented in this encounter [facility] noteNo assessment information availableWilson [facility] Work Phone: Evaluation noteNo InformationNort [employer] Other Hospital course Narrative No data available for this section [facility] Progress note No data available for this section [facility] Reason for referral (narrative) Referred by: John LAYTON MD [facility] Summary Purpose Family History No Family History Records Found Relationship Condition Age at Onset Recorded Date/T shanda Not Specified Malignant neoplasm of breast Unknown father Chronic obstructive pulmonary disease Unk nown Advance Directives No Advanced Directives Records Found Advance Directive Response Recorded Date/ Time Advance Directives No May 01 12:37pm Chief Complaint and Reason for Visit Chief Complaint R19.04 Reason for Referral Reason evaluate and treat Diagnosis 1 Elevated PSA (R97.20 ) Referral Organization [facility] Family Medicin e Fritz Referring Provider First Name Tray Referring Provider Last Name Oberer Referring Provider Specialty Family Prac polly Referred Organization [facility] Referred Provider John Layton Referred Address [address],[place], [place],[address] Referred Provider Specialty Urology Referral Priority Routine Additional Source Comments (unrecognized sect ion and content) No Status Records FoundNo Status Records FoundNo Status Records FoundNo Status Records Found INFORMATION SOURCE (unrecogn ized section and content) DATE CREATED AUTHOR 05/01/2022 [facility] DATE CREATED AUTHOR AUTHOR'S ORGANIZ ATION 07/10/2022 [facility] DATE CREATED AUTHOR AUTHOR'S ORGANIZ ATION 08/12/2022 [facility] DATE CREATED AUTHOR AUTHOR'S ORGANIZ ATION 02/09/2024 [facility] REASON FOR VISIT (unrecogniz ed section and content) lab orders1 year Follow up, flu shot never gets LB, did not get labs done LB, would like to loose weight and is unable to do so LB, pharmacy [facility], COVID-vaccine, 6 pound weight gain, Colon cancer screening, prostate cancer screening, Colonoscopy 2019, Wellness form, required labsLABS NEEDED?WELLNESS, Pharmacy: [facility] l[facility], Refills:, Smoker: Quit 02/1993. lfr, PHQ 2: No lfr, Falls: No. lfr, Vacs- Flu, pneumo, shing,: Declined all . lfr, Pt states he has no issues today. lfr, CV risk 6, did not tolerate statins, 12 pound weight loss 1 year, Last April elevated PSA 4.68, percent free 17.4, referred to urology, also for peyronie s disease, Last May soft tissue lump left hip, Dr. Tejada removed, Last May Dr. Layton, patient elected close monitoring prostate, referred to Dr. Nieves [facility] for peyronie s, Colonoscopy 2019PSA resultcanceled appt Care Team (unrecognized sect ion and content) Team Status: Inactive Member Role Status Dates Tray Reese , Primary Care Provider Active Eliezer Tejada DO Attending Provider Active Team Status: Active Member Role Status Dates Tray Sotor , DO Primary Care Provider Active Source Comments (unrecognize d section and content) In the event this informatio n is protected by the Federal Confidentiality of Alcohol and Drug Abuse Patient Records regulations: The Federal rules restrict any use of the information to criminally investigate or prosecute any alcohol or drug abuse patient.[facility] Goals (unrecognized section and content) Goals may be documented in a n alternate section FOR RECORDS PERTAINING TO PATIENTS WHO ARE OR HAVE BEEN ENROLLED IN A CHEMICAL DEPENDENCY/SUBSTANCEABUSE PROGRAM, SOME INFORMATION MAY BE OMITTED. This clinical summary was aggregated from multiple sources. Caution should be exercised in using it in the provision of clinical care. This summary normalizes information from multiple sources, and as a consequence, information in this document may materially change the coding, format and clinical context of patient data. In addition, data may be omitted in some cases. CLINICAL DECISIONS SHOULD BE BASED ON THE PRIMARY CLINICAL RECORDS. [facility]. provides no warranty or guarantee of the accuracy or completeness of information in this document.
[2024-04-22 06:52] LABS: Basophils Absolute Auto 0.1 10^3/uL (0.0-0.1); Basophils Percent Auto 0.8 % (0.2-2.0); Eosinophils Absolute Auto 0.5 10^3/uL (0.0-0.7); Eosinophils Percent Auto 7.4 % (0.9-7.0); Hemoglobin 14.4 g/dL (14.0-18.0); Immature Granulocytes Abs Auto 0.01 10^3/uL (0.00-0.03); Immature Granulocytes Pct Auto 0.2 % (0.0-0.5); Lymphocytes Percent Auto 31.5 % (20.5-60.0); Mean Corpuscular HGB Conc 34.3 g/dL (29.9-35.2); Mean Corpuscular Volume 90.5 fL (80.0-94.0); Mean Platelet Volume 9.9 fL (9.5-13.5); Monocytes Absolute Auto 0.6 10^3/uL (0.3-0.8); Monocytes Percent Auto 9.7 % (1.7-12.0); Neutrophils Absolute Auto 3.2 10^3/uL (1.4-6.5); Neutrophils Percent Auto 50.4 % (43.0-75.0); Platelet Count 202 10^3/uL (150-450); Red Blood Count 4.64 10^6/uL (4.70-6.10); Red Cell Distribution Width 12.9 % (11.0-15.0); White Blood Count 6.3 10^3/uL (4.0-11.0)
[2024-04-22 08:55] LABS: Alanine Aminotransferase 23 U/L (16-63); Albumin Globulin Ratio 1.1; Albumin Level 3.5 g/dL (3.4-5.0); Alkaline Phosphatase 53 U/L (46-116); Aspartate Amino Transferase 19 U/L (15-37); BUN Creatinine Ratio 15.3; Bilirubin Direct 0.1 mg/dL (0.0-0.2); Bilirubin Total 0.5 mg/dL (0.2-1.0); Calcium 8.6 mg/dL (8.5-10.1); Chloride 107 mmol/L (98-107); Chol HDL Ratio 4.1; Cholesterol 196 mg/dL (<=200); Estimated GFR (African America >60 (>=60); Estimated GFR (Non-African Ame >60 (>=60); Globulin 3.1 g/dL; Glucose 88 mg/dL (74-106); HDL Cholesterol 48 mg/dL (40-60); LDL Cholesterol Calculated 139.4 mg/dL; Sodium 142 mmol/L (136-145); Total Protein 6.6 g/dL (6.4-8.2); Triglycerides 43 mg/dL (<=150); VLDL CHOLESTEROL 8.6 mg/dL
[2024-04-22 09:31] LABS: Prostate Specific Antigen Scrn 5.62 ng/mL (<=4.00)
== END 2024-04-22 06:33 | disposition home or self-care (01) ==
LOC: LAB 06:33
PROVIDERS: PCP Family Medicine; Visit Provider Family Medicine
DX: E78.00 Pure hypercholesterolemia, unspecified (principal); R97.20 Elevated prostate specific antigen [PSA]
CPT/HCPCS: 36415; 80048; 80061; 80076; 85025; G0103

== ENCOUNTER 2024-08-26 06:31 | Outpatient (OUT) | payer OTHER, SELFPAY ==
--- OUTSIDE RECORDS SUMMARY | 2024-08-26 06:33 | XMS_ITS | CCD ---
Author Organization [facility] Inform ion [facility] Care Team Providers Care Sports Director Name Role Phone JESUS MANUELR, DR CHURCHILL [...] e DO Tray Reese Primary Care Provider DO Eliezer Tejada Attending Provider Tray Reese Primary Care Unavailable Eliezer Tejada Attending Unavailable Eliezer Tejada Admitting Unavailable John LAYTON Attending Unavailable TRAY REESE Referring Unavailable John LAYTON Attending Unavailable John LAYTON Attending Unavailable Allergies Allergy Classification Reported Allergen(s) Allergy Type Date of Onset Reaction(s) Facility (7 sources) Lovastatin; Translations: [lovastatin] Drug Allergy Joint Pain [facility] [place] Repository (6 sources) Pravastatin Drug Allergy ED,Leg weakness Digital Lumens Other (7 sources) Decongestant; Translations: [Decongestant] Drug allergy Insomnia [facility] [place] Repository (1 source) Pravastatin; Translations: [Pravachol] Drug Allergy [facility] [place] Repository Medications Current Medications Medication Drug Class(es) Dates Sig (Normalized) Sig (Original) Magnesium (1 source) Start: 05-09-2024 Magnesium 2 gram IVPB Refills(s) 0 Start Date: 05/09/24 Status: Ordered Multivitamin preparation (2 sources) Start: 05-03-2019 take 1 tablet by mouth once daily Multivitamin Active 1 TAB PO Daily May 03, 2019 12:00am Saw palmetto extract (1 source) Start: 05-09-2024 saw palmetto Oral, Refill(s) 0 Start Date: 05/09/24 Status: Ordered Vitamin D3 (1 source) Start: 05-09-2024 Vitamin D3 Refills(s) 0 Start Date: 05/09/24 Status: Ordered Completed/Discontinued Medications Medication Drug Class(es) Dates Sig (Normalized) Sig (Original) sildenafil 20 mg oral tablet (1 source) Phosphodiesterase 5 Inhibitor Start: 05-09-2024 take 1-5 tablets by mouth every hour, then take 5 tablets by mouth every twenty-four hours sildenafil 20 mg oral tablet 20 mg = 1 tab(s), Oral, As Directed, Take 1-5 tabs one hour prior to sexual activity. Do not exceed 100mg in 24 hours., # 30 tab(s), Refills(s) 0, Pharmacy: [id number], 176, cm, 05/09/24 15:40:00 EDT, Height/Length Dosing, 96.5, kg, 05/09/24 15:40:00 EDT, Weight Dosing Start Date: 05/09/24 Status: Ordered Triamcinolone (12 sources) Corticosteroid Start: 08-21-2020 Kenalog -40 mg Aug, 40 mg Start: 03-23-2017 Kenalog -40 mg March, Problems Problem Classification Problem Date Documented Da te Episodic/Chronic Crushing injury or internal injury (4 sources) Injury of urethra; Translations: [Other injury of urethra, initial encounter] Onset: 06-12-2022 Episodic Disorders of lipid metabolism (13 sources) Pure hypercholesterolemia , unspecified; Translations: [Hypercholesterolemi a] Onset: 04-28-2022 01-26-2014 Chronic Hyperplasia of prostate (2 sources) Benign prostatic hypertrophy without outflow obstruction; Translations: [Benign prostatic hyperplasia without lower urinary tract symptoms] Onset: 05-09-2024 Chronic Osteoarthritis (16 sources) Osteoarthritis of knee; Translations: [Unilateral primary osteoarthritis, left knee] Onset: 04-17-2022 Resolved: 04-17-2022 Chronic Other connective tissue disease (3 sources) Synovial cyst of popliteal space; Translations: [Synovial cyst of popliteal space [[place]], left knee] Episodic Other connective tissue disease (3 sources) Impingement syndrome of shoulder region 01-26-2014 Episodic Other diseases of kidney and ureters (1 source) Disorder of kidney and ureter, unspecified Episodic Other gastrointestinal disorders (2 sources) Occult blood in stools; Translations: [Other fecal abnormalities] 05-05-2019 Episodic Other male genital disorders (9 sources) Impotence; Translations: [Male erectile dysfunction, unspecified] 06-09-2022 Chronic Other male genital disorders (10 sources) Induratio penis plastica; Translations: [Induration penis plastica] Onset: 07-06-2022 06-09-2022 Chronic Other male genital disorders (1 source) Deviation of penis; Translations: [Other specified disorders of penis] Onset: 07-06-2022 07-06-2022 Chronic Other male genital disorders (6 sources) Other male erectile dysfunction; 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 of organic origin] Onset: 07-06-2022 07-06-2022 Chronic Other male genital disorders (1 source) Induration penis plastica Chronic Other non-traumatic joint disorders (3 sources) Shoulder pain 01-26-2014 Episodic Other nutritional; endocrine; and metabolic disorders (10 sources) Body mass index 30+ - obesity; Translations: [Obesity, unspecified] 06-12-2022 Chronic Other nutritional; endocrine; and metabolic disorders (2 sources) Obesity, unspecified Onset: 04-17-2022 Resolved: 04-17-2022 Chronic Other nutritional; endocrine; and metabolic disorders (1 source) Obese class I; Translations: [Body mass index (BMI) 34.0-34.9, adult] Onset: 06-12-2022 Chronic Other screening for suspected conditions (not mental disorders or infectious disease) (17 sources) Elevated prostate specific antigen [PSA]; Translations: [Encounter for screening for malignant neoplasm of prostate] Onset: 04-17-2022 Resolved: 04-27-2022 Episodic Other skin disorders (3 sources) Epidermoid cyst of skin; Translations: [Sebaceous cyst] Episodic Unclassified (1 source) Left lower quadrant abdominal swelling, mass and lump; Translations: [Left lower quadrant abdominal swelling, mass and lump] Onset: 07-16-2022 Results Test Name Value Interpretation Reference Range Facility Screenson 05-10-2024 Screens [id number] 1.00TIFF Normal [facility] Patient Educationon 05-09-20 Patient Education Oncology Prostate Cancer Screening Prostate cancer screening is testing that is done to check for the presence of prostate cancer in men. The prostate gland is a walnut-sized gland that is located below the bladder and in front of the rectum in males. The function of the prostate is to add fluid to semen during ejaculation. Prostate cancer is one of the most common types of cancer in men. Who should have prostate cancer screening? Screening recommendations vary based on age and other risk factors, as well as between the professional organizations who make the recommendations. In general, screening is recommended if: ? You are age 50 to 70 and have an average risk for prostate cancer. You should talk with your health care provider about your need for screening and how often screening should be done. Because most prostate cancers are slow growing and will not cause , screening in this age group is generally reserved for men who have a 10- to 15-year life expectancy. ? You are younger than age 50, and you have these risk factors: ? Having a father, brother, or uncle who has been diagnosed with prostate cancer. The risk is higher if your family member's cancer occurred at an early age or if you have multiple family members with prostate cancer at an early age. ? Being a male who is Black or is of [place] or sub-Saharan descent. In general, screening is not recommended if: ? You are younger than age 40. ? You are between the ages of 40 and 49 and you have no risk factors. ? You are 70 years of age or older. At this age, the risks that screening can cause are greater than the benefits that it may provide. If you are at high risk for prostate cancer, your health care provider may recommend that you have screenings more often or that you start screening at a younger age. How is screening for prostate cancer done? The recommended prostate cancer screening test is a blood test called the prostate-specific antigen (PSA) test. PSA is a protein that is made in the prostate. As you age, your prostate naturally produces more PSA. Abnormally high PSA levels may be caused by: ? Prostate cancer. ? An enlarged prostate that is not caused by cancer (benign prostatic hyperplasia, or BPH). This condition is very common in older men. ? A prostate gland infection (prostatitis) or urinary tract infection. ? Certain medicines such as male hormones (like testosterone) or other medicines that raise testosterone levels. A rectal exam may be done as part of prostate cancer screening to help provide information about the size of your prostate gland. When a rectal exam is performed, it should be done after the PSA level is drawn to avoid any effect on the results. Depending on the PSA results, you may need more tests, such as: ? A physical exam to check the size of your prostate gland, if not done as part of screening. ? Blood and imaging tests. ? A procedure to remove tissue samples from your prostate gland for testing (biopsy). This is the only way to know for certain if you have prostate cancer. What are the benefits of prostate cancer screening? ? Screening can help to identify cancer at an early stage, before symptoms start and when the cancer can be treated more easily. ? There is a small chance that screening may lower your risk of dying from prostate cancer. The chance is small because prostate cancer is a slow-growing cancer, and most men with prostate cancer from a different cause. What are the risks of prostate cancer screening? The main risk of prostate cancer screening is diagnosing and treating prostate cancer that would never have caused any symptoms or problems. This is called overdiagnosisand overtreatment. PSA screening cannot tell you if your PSA is high due to cancer or a different cause. A prostate biopsy is the only procedure to diagnose prostate cancer. Even the results of a biopsy may not tell you if your cancer needs to be treated. Slow-growing prostate cancer may not need any treatment other than monitoring, so diagnosing and treating it may cause unnecessary stress or other side effects. Questions to ask your health care provider ? When should I start prostate cancer screening? ? What is my risk for prostate cancer? ? How often do I need screening? ? What type of screening tests do I need? ? How do I get my test results? ? What do my results mean? ? Do I need treatment? Where to find more information ? The [place] [employer]: www.cancer.org ? [place] [employer]: www.auanet.org Contact a health care provider if: ? You have difficulty urinating. ? You have pain when you urinate or ejaculate. ? You have blood in your urine or semen. ? You have pain in your back or in the area of your prostate. Summary ? Prostate cancer is a common type of cancer in men. The prostate gland is located below the bladder and in front of the rectum. This gland adds flu (more content not included)... Normal [facility] [place] Lab Reportson 04-27-2024 Lab Reports [id number]. [id number] Normal [facility] [place] Basophils Auto (Bld) [#/Vol] on 04-22-2024 Basophils (Bld) [#/Vol] 0.1 10 3/uL 0.0-0.1 [facility] Basophils/100 WBC Auto (Bld) on 04-22-2024 Basophils/100 WBC (Bld) 0.8 % 0.2-2.0 [facility] Cholesterol in LDL Calc [Mas s/Vol]on 04-22-2024 Cholesterol in LDL [Mass/Vol] 139.4 mg/dL [facility] Comment on above: <100 mg/dl [id number] 0-129 mg/dl NEAR OR ABOVE [id number] mg/dl BORDERLINE [id number] mg/dl HIGH>190 mg/dl VERY HIGH Cholesterol in VLDL Calc [Ma ss/Vol]on 04-22-2024 Cholesterol in VLDL [Mass/Vol] 8.6 mg/dL [facility] Eosinophils/100 WBC Auto (Bl d)on 04-22-2024 Eosinophils/100 WBC (Bld) 7.4 % 0.9-7.0 [facility] Erythrocyte distribution wid th Auto (RBC) [Ratio]on 04-22-2024 Erythrocyte distribution width (RBC) [Ratio] 12.9 % 11.0-15.0 [facility] Estimated glomerular filtrat ion rate (GFR) non- Americanon 04-22-2024 GFR/1.73 sq M.predicted among non-blacks MDRD (S/P/Bld) [Vol rate/Area] mL/min/{1.73_m2} >=60 [facility] Globulin Calc (S) [Mass/Vol] on 04-22-2024 Globulin (S) [Mass/Vol] 3.1 g/dL [facility] Hematocrit Auto (Bld) [Volum e fraction]on 04-22-2024 Hematocrit (Bld) [Volume fraction] 42.0 % 42.0-54.0 [facility] Hemoglobin [Mass/volume] in Bloodon 04-22-2024 Hemoglobin (Bld) [Mass/Vol] 14.4 g/dL 14.0-18.0 [facility] Laboratory - Chemistry and C hemistry - challengeon 04-22-2024 Albumin [Mass/Vol] 3.5 g/dL 3.4-5.0 [facility] ALP [Catalytic activity/Vol] 53 U/L 46-116 [facility] ALT [Catalytic activity/Vol] 23 U/L 16-63 [facility] AST [Catalytic activity/Vol] 19 U/L 15-37 [facility] Bilirubin [Mass/Vol] 0.5 mg/dL 0.2-1.0 [facility] Bilirubin.direct [Mass/Vol] 0.1 mg/dL 0.0-0.2 [facility] Calcium [Mass/Vol] 8.6 mg/dL 8.5-10.1 [facility] Chloride [Moles/Vol] 107 mmol/L 98-107 [facility] Cholesterol [Mass/Vol] 196 mg/dL <=200 [facility] Cholesterol in HDL [Mass/Vol] 48 mg/dL 40-60 [facility] Comment on above: > or =60 mg/dl - LOW CARDIOVASCULAR RISK<40 mg/dl - HIGH CARDIOVASCULAR RISK CO2 [Moles/Vol] 27.0 mmol/L 21.0-32.0 [facility] Creatinine [Mass/Vol] 1.18 mg/dL 0.70-1.30 [facility] GFR/1.73 sq M.predicted MDRD (S/P/Bld) [Vol rate/Area] mL/min/{1.73_m2} >=60 [facility] Glucose [Mass/Vol] 88 mg/dL 74-106 [facility] Potassium [Moles/Vol] 4.0 mmol/L 3.5-5.1 [facility] Protein [Mass/Vol] 6.6 g/dL 6.4-8.2 [facility] Sodium [Moles/Vol] 142 mmol/L 136-145 [facility] Triglyceride [Mass/Vol] 43 mg/dL <=150 [facility] Urea nitrogen [Mass/Vol] 18.0 mg/dL 7.0-18.0 [facility] Urea nitrogen/Creatinine [Mass ratio] 15.3 mg/mg [facility] Laboratory - Hematology and Cell countson 04-22-2024 Immature granulocytes/100 WBC (Bld) 0.2 % 0.0-0.5 [facility] Leukocytes [#/volume] correc oj for nucleated erythrocytes in Blood by Automated counon 04-22-2024 WBC corrected for nucl RBC Auto (Bld) [#/Vol] 6.3 10 3/uL 4.0-11.0 [facility] Lymphocytes Auto (Bld) [#/Vo l]on 04-22-2024 Lymphocytes (Bld) [#/Vol] 2.0 10 3/uL 1.2-3.8 [facility] Lymphocytes/100 WBC Auto (Bl d)on 04-22-2024 Lymphocytes/100 WBC (Bld) 31.5 % 20.5-60.0 [facility] MCH Auto (RBC) [Entitic mass ]on 04-22-2024 MCH (RBC) [Entitic mass] 31.0 pg 25.9-34.0 [facility] MCHC Auto (RBC) [Mass/Vol]on 04-22-2024 MCHC (RBC) [Mass/Vol] 34.3 g/dL 29.9-35.2 [facility] MCV Auto (RBC) [Entitic vol] on 04-22-2024 MCV (RBC) [Entitic vol] 90.5 fL 80.0-94.0 [facility] Monocytes Auto (Bld) [#/Vol] on 04-22-2024 Monocytes (Bld) [#/Vol] 0.6 10 3/uL 0.3-0.8 [facility] Monocytes/100 WBC Auto (Bld) on 04-22-2024 Monocytes/100 WBC (Bld) 9.7 % 1.7-12.0 [facility] Neutrophils Auto (Bld) [#/Vo l]on 04-22-2024 Neutrophils (Bld) [#/Vol] 3.2 10 3/uL 1.4-6.5 [facility] Neutrophils/100 WBC Auto (Bl d)on 04-22-2024 Neutrophils/100 WBC (Bld) 50.4 % 43.0-75.0 [facility] No Panel Informationon 04-22 Eosinophils # (Auto) 0.5 10 3/uL 0.0-0.7 [facility] Immature Granulocyte # (Auto) 0.01 10 3/uL 0.00-0.03 [facility] Prostate Specific Antigen Screen 5.62 ng/mL <=4.00 [facility] Platelet mean volume Auto (B ld) [Entitic vol]on 04-22-2024 Platelet mean volume (Bld) [Entitic vol] 9.9 fL 9.5-13.5 [facility] Platelets Auto (Bld) [#/Vol] on 04-22-2024 Platelets (Bld) [#/Vol] 202 10 3/uL 150-450 [facility] RBC Auto (Bld) [#/Vol]on RBC (Bld) [#/Vol] 4.64 10 6/uL 4.70-6.10 [facility] Serum or plasma albumin/glob ulin mass ratioon 04-22-2024 Albumin/Globulin [Mass ratio] 1.1 {ratio} [facility] Serum or plasma anion gap de terminationon 04-22-2024 Anion gap [Moles/Vol] 12.0 mmol/L [facility] Serum or plasma total choles terol/high density lipoprotein (HDL) cholesterol mass chrissy 04-22-2024 Cholesterol.total/Ch olesterol in HDL [Mass ratio] 4.1 {ratio} [facility] Comment on above: 3.3 - 4.4 LOW RISK4. 4 - 7.1 AVERAGE RISK7.1 - 11.0 MODERATE RISK>11.0 HIGH RISK Patient Letter FTMCon 2023 Patient Letter [facility] [place] [address] [address] December 08, 2023 FATOU [place]ROYO [address] [place] [address] : 1960 Dear Fatou Arroyo, I am [...] [facility] CALIN WATERS, [facility] Lab Reportson 11-11-2023 Lab Reports [id number] [facility] Sandeep 07-16-2022 L - -------- Specimen: [id number] Received: 07/16/22 Status: MAKI Holt Num: [id number] Spec Type: Surgical Subm Dr: Eliezer Tejada, Tissues: A Soft Tissue/Surgical Margin-Other than Tumor,Mass,Lip or Katerine (LT LOWER ABDOM Procedures: HE Stain, Gross/Micro L4 -------- Age/ Patient Sex Location Account Attending Physician -------- Fatou Arroyo JR 61/M [place] [id number] Eliezer Tejada, -------- SPEC NUM: [id number] RECD: 07/16/22 STATUS: MAKI HOLT NUM: [id number] ANGEL: 07/16/22 [facility] DR: Eliezer Tejada DO ENTERED: 07/16/22 [facility]: [facility] SPEC TYPE: Surgical DEPT: S ORDERED: HE [...] the cut surface is homogeneous, yellow-ac, lobular.. Wheelchair Van Operator First Responder sections are submitted in one cassette labeled A1. Microscopic Description One glass slide with H E stained material has been examined. The pathologist's interpretation is performed at [facility]. The microscopic findings support the above pathologic diagnosis. -------- Specimen: [id number] Received: 07/16/22 Status: MAKI Holt Num: [id number] Spec Type: Surgical Subm Dr: Eliezer Tejada DO Tissues: A Soft Tissue/Surgical Margin-Other than Tumor,Mass,Lip or Katerine (LT LOWER ABDOM Procedures: HE Stain, Gross/Micro L4 -------- Patient: Fatou Arroyo JR [id number] (Continued) -------- Specimen: [id number] Received: 07/16/22 (Continued) Signed (signature on file) Artie Flor MD 07/19/22 2318 -------- Specimen: [id number] Received: 07/16/22 Status: MAKI Holt Num: [id number] Spec Type: Surgical Subm Dr: Eliezer Tejada DO Tissues: A Soft Tissue/Surgical Margin-Other than Tumor,Mass,Lip or Katerine (LT LOWER ABDOM Procedures: HE Stain, Gross/Micro L4 -------- Patient: Fatou Arroyo JR [id number] (Continued) -------- Specimen: [id number] Received: 07/16/22 (Continued) CPT Codes 96758 -------- -------- Specimen: [id number] Received: 07/16/22 Status: MAKI Holt Num: [id number] Spec Type: Surgical Subm Dr: Eliezer Tejada DO Tissues: A Soft Tissue/Surgical Margin-Other than Tumor,Mass,Lip or Katerine (LT LOWER ABDOM Procedures: HE Stain, Gross/Micro L4 -------- Patient: Fatou Arroyo JR [id number] (Continued) -------- Signed (signature on file) Artie Flor MD [facility]19[facility] ) FATOU ARROYO ([id number]) 1960 M Date Time Provider Department 07/06/22 10:00 AM FATOU GAFFNEY During your visit today, we recorded the following information about you: Pulse Blood pressure Weight Height 49/minute 165/90 104.3 kg 1.753 m Fatou Gaffney MD 07/06/2022 7:13 PM Signed [facility] NEW PATIENT HISTORY AND PHYSICAL EXAM PATIENT INFO: Fatou Arroyo 61 year old REFERRING M.D.: Jude Mei MD [address] [place] [address] This consult was requested by Dr. Mei for an opinion regarding peyronies disease, and my final recommendations will be communicated to the requesting health care provider by way of the shared medical record for internal providers or letter via the [employer] for external providers. HISTORY Chief [...] predated onset (more content not included)... Normal [facility] PSA, FREE AND TOTAL RATIOon 04-29-2022 % Free PSA 17.4 % Normal [facility] Comment on above: Result Comment: The table [...] men. Performed By: #### P SAFREE #### [facility] [address] [place], [place] [address] Dr. Shelby Trvais Prostate specific Ag [Mass/Vol] 4.6 ng/mL Critically high 0.0-4.0 [facility] Comment on above: Result Comment: Gabino PEREZ methodology. . According to the [place] [employer], Serum PSA should decrease and [...] disease. Performed By: #### P SAFREE #### [facility] [address] [place] [address] Dr. Shelby Travis PSA, Free 0.80 ng/mL Normal N/A [facility] Comment on above: Result Comment: Gabino PEREZ methodology. Performed By: #### P SAFREE #### [facility] [address] [place] [address] Dr. Shelby Travis CBC AUTO DIFFon 04-25-2022 BASO # 0.0 103/ul Normal 0.0-0.1 [facility] Comment on above: Performed By: #### C BC #### [facility] [address] [place] [address] Dr. Shelby Travis Basophils/100 WBC (Bld) 0.3 % Normal 0.2-2.0 [facility] Comment on above: Performed By: #### C BC #### [facility] [address] [place] [address] Dr. Shelby Travis EO # 0.1 103/ul Normal 0.0-0.7 [facility] Comment on above: Performed By: #### C BC #### [facility] [address] [place] [address] Dr. Shelby Travis Eosinophils/100 WBC (Bld) 1.4 % Normal 0.9-7.0 [facility] Comment on above: Performed By: #### C BC #### [facility] [address] [place] [address] Dr. Shelby Travis Erythrocyte distribution width (RBC) [Ratio] 12.9 % Normal 11.0-15.0 [facility] Comment on above: Performed By: #### C BC #### [facility] [address] [place] [address] Dr. Shelby Travis Hematocrit (Bld) [Volume fraction] 44.5 % Normal 42.0-54.0 [facility] Comment on above: Performed By: #### C BC #### [facility] [address] [place] [address] Dr. Shelby Travis Hemoglobin (Bld) [Mass/Vol] 15.3 g/dL Normal 14.0-18.0 [facility] Comment on above: Performed By: #### C BC #### [facility] [address] [place] [address] Dr. Shelby Travis IG # 0.01 10e3/ul Normal 0.00-0.03 [facility] Comment on above: Performed By: #### C BC #### [facility] [address] [place] [address] Dr. Shelby Travis IG % 0.2 % Normal 0.0-0.5 [facility] Comment on above: Performed By: #### C BC #### [facility] [address] [place] [address] Dr. Shelby Travis LYMPH # 1.5 103/ul Normal 1.2-3.8 [facility] Comment on above: Performed By: #### C BC #### [facility] [address] [place] [address] Dr. Shelby Travis Lymphocytes/100 WBC (Bld) 25.5 % Normal 20.5-60.0 [facility] Comment on above: Performed By: #### C BC #### [facility] [address] [place] [address] Dr. Shelby Travis MANUAL DIFF REQ NO Normal [facility] [place] Comment on above: Performed By: #### C BC #### [facility] [address] [place] [address] Dr. Shelby Travis MCH (RBC) [Entitic mass] 30.8 pg Normal 25.9-34.0 [facility] Comment on above: Performed By: #### C BC #### [facility] [address] [place] [address] Dr. Shelby Travis MCHC (RBC) [Mass/Vol] 34.4 g/dL Normal 29.9-35.2 [facility] Comment on above: Performed By: #### C BC #### [facility] [address] [place] [address] Dr. Shelby Travis MCV (RBC) [Entitic vol] 89.5 fL Normal 80.0-94.0 [facility] Comment on above: Performed By: #### C BC #### [facility] [address] [address] [address] Shelby Travis MONO # 0.9 103/ul Critically high 0.3-0.8 [facility] Comment on above: Performed By: #### C BC #### [facility] [address] [place] [address] Dr. Shelby Travis Monocytes/100 WBC (Bld) 14.5 % Critically high 1.7-12.0 [facility] Comment on above: Performed By: #### C BC #### [facility] [address] [place] [address] Dr. Shelby Travis NEUT # 3.4 103/ul Normal 1.4-6.5 [facility] Comment on above: Performed By: #### C BC #### [facility] [address] [place] [address] Dr. Shelby Travis Neutrophils/100 WBC (Bld) 58.1 % Normal 43.0-75.0 [facility] Comment on above: Performed By: #### C BC #### [facility] [address] [place] [address] Dr. Shelby Travis Platelet mean volume (Bld) [Entitic vol] 9.6 fL Normal 9.5-13.5 [facility] Comment on above: Performed By: #### C BC #### [facility] [address] [place] [address] Dr. Shelby Travis PLT 184 103/ul Normal 150-450 [facility] Comment on above: Performed By: #### C BC #### [facility] [address] [place] [address] Dr. Shelby Travis RBC 4.97 106/ul Normal 4.70-6.10 [facility] Comment on above: Performed By: #### C BC #### [facility] [address] [place] [address] Dr. Shelby Travis WBC 5.9 103/ul Normal 4.0-11.0 [facility] Comment on above: Performed By: #### C BC #### [facility] [address] [place] [address] Dr. Shelby Travis LIPID PROFILEon 04-25-2022 CHOL-HDL RATIO NORM SEE BELOW Normal [facility] Comment on above: Result Comment: 3.3 - 4.4 LOW RISK 4.4 - 7.1 AVERAGE RISK 7.1 - 11.0 MODERATE RISK >11.0 HIGH RISK Performed By: #### L IPID, BMP, LIVER #### [facility] [address] [address] [address] Shelby Travis Cholesterol [Mass/Vol] 192 mg/dL Normal <=200 [facility] Comment on above: Performed By: #### L IPID, BMP, LIVER #### [facility] [address] [address] [address] Shelby Travis Cholesterol in HDL [Mass/Vol] 40 mg/dL Normal 40-60 [facility] Comment on above: Performed By: #### L IPID, BMP, LIVER #### [facility] [address] [place] [address] Dr. Shelby Travis Cholesterol in LDL [Mass/Vol] 138.2 mg/dL Normal [facility] Comment on above: Performed By: #### L IPID, BMP, LIVER #### [facility] [address] [address] [address] Shelby Travis Cholesterol.total/Ch olesterol in HDL [Mass ratio] 4.8 {ratio} Normal [facility] Comment on above: Performed By: #### L IPID, BMP, LIVER #### [facility] [address] [address] [address] Shelby Travis HDL NORMAL > or = 60 mg/dl - LO W CARDIOVASCULAR RISK <40 mg/dl - HIGH CARDIOVASCULAR RISK Normal [facility] Comment on above: Performed By: #### L IPID, BMP, LIVER #### [facility] [address] [address] [address] Shelby Travis LDL CALC NORMAL SEE BELOW Normal [facility] Comment on above: Result Comment: <100 mg/dl OPTIMAL 100 - 129 mg/dl NEAR OR ABOVE OPTIMAL 130 - 159 mg/dl BORDERLINE HIGH 160 - 189 mg/dl HIGH >190 mg/dl VERY HIGH Performed By: #### L IPID, BMP, LIVER #### [facility] [address] [address] [address] Shelby Travis Triglyceride [Mass/Vol] 69 mg/dL Normal <=150 [facility] Comment on above: Performed By: #### L IPID, BMP, LIVER #### [facility] [address] [address] [address] Shelby Travis VLDL CALC 13.8 mg/dL Normal [facility] Comment on above: Performed By: #### L IPID, BMP, LIVER #### [facility] [address] [address] [address] Shelby Travis LIVER PROFILEon 04-25-2022 Albumin [Mass/Vol] 3.7 g/dL Normal 3.4-5.0 [facility] Comment on above: Performed By: #### L IPID, BMP, LIVER #### [facility] [address] [place] [address] Dr. Shelby Travis Albumin/Globulin [Mass ratio] 1.1 {ratio} Normal [facility] Comment on above: Performed By: #### L IPID, BMP, LIVER #### [facility] [address] [address] [address] Shelby Travis ALP [Catalytic activity/Vol] 52 U/L Normal 46-116 [facility] Comment on above: Performed By: #### L IPID, BMP, LIVER #### [facility] [address] [place] [address] Dr. Shelby Travis ALT [Catalytic activity/Vol] 32 U/L Normal 16-63 [facility] Comment on above: Performed By: #### L IPID, BMP, LIVER #### [facility] [address] [address] [address] Shelby Travis AST [Catalytic activity/Vol] 20 U/L Normal 15-37 [facility] Comment on above: Performed By: #### L IPID, BMP, LIVER #### [facility] [address] [address] [address] Shelby Travis BILI, CONJUGATED 0.1 mg/dL Normal 0.0-0.2 [facility] Comment on above: Performed By: #### L IPID, BMP, LIVER #### [facility] [address] [place] [address] Dr. Shelby Travis Bilirubin [Mass/Vol] 0.6 mg/dL Normal 0.2-1.0 [facility] Comment on above: Performed By: #### L IPID, BMP, LIVER #### [facility] [address] [place] [address] Dr. Shelby Travis Globulin (S) [Mass/Vol] 3.3 g/dL Normal [facility] Comment on above: Performed By: #### L IPID, BMP, LIVER #### [facility] [address] [place] [address] Dr. Shelby Travis Protein [Mass/Vol] 7.0 g/dL Normal 6.4-8.2 [facility] Comment on above: Performed By: #### L IPID, BMP, LIVER #### [facility] [address] [place] [address] Dr. Shelby Travis PROF CHEM 8 (BAS METB)on Anion gap [Moles/Vol] 12.6 mmol/L Normal [facility] Comment on above: Performed By: #### L IPID, BMP, LIVER #### [facility] [address] [place] [address] Dr. Shelby Travis Calcium [Mass/Vol] 8.4 mg/dL Critically low 8.5-10.1 [facility] Comment on above: Performed By: #### L IPID, BMP, LIVER #### [facility] [address] [place] [address] Dr. Shelby Travis Chloride [Moles/Vol] 105 mmol/L Normal 98-107 [facility] Comment on above: Performed By: #### L IPID, BMP, LIVER #### [facility] [address] [place] [address] Dr. Shelby Travis CO2 [Moles/Vol] 25.6 mmol/L Normal 21.0-32.0 [facility] Comment on above: Performed By: #### L IPID, BMP, LIVER #### [facility] [address] [address] [address] Shelby Travis Creatinine [Mass/Vol] 1.29 mg/dL Normal 0.70-1.30 [facility] Comment on above: Performed By: #### L IPID, BMP, LIVER #### [facility] [address] [address] [address] Shelby Travis EGFR-AF FRENCH >60 Normal >=60 [facility] Comment on above: Performed By: #### L IPID, BMP, LIVER #### [facility] [address] [address] [address] Shelby Travis EGFR-NON AF FRENCH 57 mL/min/1.73m2 Critically low >=60 [facility] Comment on above: Performed By: #### L IPID, BMP, LIVER #### [facility] [address] [address] [address] Shelby Travis Glucose [Mass/Vol] 93 mg/dL Normal 74-106 [facility] Comment on above: Performed By: #### L IPID, BMP, LIVER #### [facility] [address] [address] [address] Shelby Travis Potassium [Moles/Vol] 4.2 mmol/L Normal 3.5-5.1 [facility] Comment on above: Performed By: #### L IPID, BMP, LIVER #### [facility] [address] [address] [address] Shelby Travis Sodium [Moles/Vol] 139 mmol/L Normal 136-145 [facility] Comment on above: Performed By: #### L IPID, BMP, LIVER #### [facility] [address] [address] [address] Shelby Travis Urea nitrogen [Mass/Vol] 18.0 mg/dL Normal 7.0-18.0 [facility] Comment on above: Performed By: #### L IPID, BMP, LIVER #### [facility] [address] [address] [address] Shelby Travis Urea nitrogen/Creatinine [Mass ratio] 14.0 mg/mg Normal [facility] Comment on above: Performed By: #### L IPID, BMP, LIVER #### [facility] [address] [address] [address] Shelby Travis Vital Signs Date Time Vital Sign Value Performing Clinician Facility 05-09-2024 15:34-0400 Blood Pressure Location [email or web address] 05-09-2024 15:34-0400 Diastolic blood pressure 88 mm[Hg] [email or web address] 05-09-2024 15:34-0400 Respiratory rate 16 /min [email or web address] 05-09-2024 15:34-0400 Systolic blood pressure 126 mm[Hg] [facility] 04-27-2024 15:32-0400 Body height 175.26 cm [facility] 04-27-2024 15:32-0400 Body mass index (BMI) [Ratio] 30.1 kg/m2 [facility] 04-27-2024 15:32-0400 Body temperature 97.8 [degF] [facility] 04-27-2024 15:32-0400 Body weight 92.58 kg [facility] 04-27-2024 15:32-0400 Diastolic blood pressure 63 mm[Hg] [facility] 04-27-2024 15:32-0400 Heart rate 53 /min [facility] 04-27-2024 15:32-0400 Respiratory rate 16 /min [facility] 04-27-2024 15:32-0400 SaO2% (BldA) [Mass fraction] 97 % [facility] 04-27-2024 15:32-0400 Systolic blood pressure 130 mm[Hg] [facility] 04-26-2023 15:15-0400 Body height 175.26 cm Tray Reese Other [facility] Other 04-26-2023 15:15-0400 Body mass index (BMI) [Ratio] 33.05 kg/m2 Tray Oberer Other [facility] Other 04-26-2023 15:15-0400 Body temperature 97.8 [degF] Tray Oberer Other [facility] Other 04-26-2023 15:15-0400 Body weight 101.52 kg Tray Oberer Other [facility] Other 04-26-2023 15:15-0400 Diastolic blood pressure 73 mm[Hg] Tray Oberer Other [facility] Other 04-26-2023 15:15-0400 Respiratory rate 16 /min Tray Oberer Other [facility] Other 04-26-2023 15:15-0400 SaO2% (BldA) [Mass fraction] 99 % Tray Oberer Other [facility] Other 04-26-2023 15:15-0400 Systolic blood pressure 128 mm[Hg] Tray Oberer Other [facility] Other 04-17-2022 17:00-0400 Body height 175.26 cm Tray Oberer Other [facility] Other 04-17-2022 17:00-0400 Body mass index (BMI) [Ratio] 35.16 kg/m2 Tray Oberer Other [facility] Other 04-17-2022 17:00-0400 Body temperature 98.4 [degF] Tray Oberer Other [facility] Other 04-17-2022 17:00-0400 Body weight 108 kg Tray Oberer Other [facility] Other 04-17-2022 17:00-0400 Diastolic blood pressure 72 mm[Hg] Tray Oberer Other [facility] Other 04-17-2022 17:00-0400 Respiratory rate 16 /min Tray Oberer Other [facility] Other 04-17-2022 17:00-0400 SaO2% (BldA) [Mass fraction] 96 % Tray Oberer Other [facility] Other 04-17-2022 17:00-0400 Systolic blood pressure 138 mm[Hg] Tray Oberer Other [facility] Other Encounters Encounter Date Encounter Type Care Provider Facility Start: 09-05-2024 ambulatory John LAYTON Facility : [facility] Start: 05-09-2024 End: 05-09-2024 ambulatory John LAYTON Facility: [place] Start: 05-09-2024 End: 05-09-2024 Patient encounter procedure John LAYTON [facility] [place] Start: 04-27-2024 End: 04-27-2024 ambulatory [facility] Work Phone: Start: 04-27-2024 End: 04-27-2024 Patient encounter procedure [facility] Physician [facility] [place] Work Phone: Start: 04-22-2024 Non-patient / Non-visit [facility] Physician [facility] Professional [place] Work Phone: Start: 11-11-2023 End: 11-11-2023 ambulatory Tray Oberer Other [facility] Other Start: 11-11-2023 Telephone encounter Tray Oberer [facility] Family [facility] Start: 11-09-2023 End: 11-09-2023 ambulatory TRAY OBERER Facility:[facility] Start: 11-09-2023 End: 11-09-2023 Patient encounter procedure John LAYTON [facility] Start: 10-18-2023 End: 10-18-2023 ambulatory Tray Oberer Other [facility] Other Start: 10-18-[address] [facility] Start: 04-26-2023 End: 04-26-2023 ambulatory Tray Oberer Other [facility] Other Start: 04-26-2023 Encounter for genera l adult medical examination without abnormal findings Tray Oberer [facility] Start: 04-26-2023 Periodic preventive med est patient 40-64yrs [address] Obe[address] [facility] Start: 03-15-2023 End: 03-15-2023 ambulatory Tray Oberer Other [facility] Other Start: 03-15-2023 Telephone encounter Tray Oberer [facility] Start: 07-16-2022 End: 07-16-2022 ambulatory Tray Oberer Facility:[facility] Start: 07-16-2022 End: 07-16-2022 Departed Referred DO Tray Oberer Work Phone: [facility] [place] Start: 07-06-2022 ambulatory Fatou smith MD Work Phone: Urology Start: 06-12-2022 End: 06-12-2022 Patient encounter procedure John LAYTON [facility] [place] Start: 04-28-2022 Encounter for genera l adult medical examination without abnormal findings DR TRAY REESE [facility] Start: 04-27-2022 End: 04-28-[address] TRAY REESE Facility:[facility] Start: 04-27-2022 Telephone encounter Tray Reese [facility] Start: 04-25-2022 End: 04-26-[address] TRAY REESE Facility:[facility] Start: 04-25-2022 End: 04-26-2022 Encounter for general adult medical examination without abnormal findings DR TRAY REESE Facility:[facility] Start: 04-17-2022 End: 04-17-2022 ambulatory Tray Reese Other [facility] Other Start: 04-17-2022 Encounter for genera l adult medical examination without abnormal findings Tray Reese [facility] Start: 04-17-2022 Periodic preventive med est patient 40-[address]yrs T[address] Reese [facility] Procedures Date Procedure Procedure Detail Performing Clinician Start: 04-25-[address] TRAY CURRAN Comment on above: Performed By: #### P [facility] #### [facility] [address] [place] [address] Dr. Shelby Travis Extraction of wisdom tooth [place] LAYTON History of repair of musculotendinous cuff of shoulder H/O rotator cuff surgery History of tonsillectomy Deny arnaud LAYTON Plan of Treatment Date Care Activity Detail Author Start: 07-16-2022 Influenza vaccination INFLUENZA (#1) [facility] Start: 2015 PROSTATE CANCER SCREENING DISCUSSION PROSTATE CANCER SCREENING DISCUSSION [facility] Start: 2010 SHINGRIX VACCINE (1 of 2) SHINGRIX VACCINE (1 of 2) [facility] Start: 2005 COLOGUARD (FIT-DNA) COLOGUARD (FIT-D NA) [facility] Start: 2005 Colonoscopy COLONOSCOPY [facility] Start: 2005 COLORECTAL CANCER SCREENING COLORECTAL CANCER SCREENING [facility] Start: [address] COLONOGRAPHY [facility] Start: 2005 DIABETES SCREEN DIABETES SCREEN [facility] Start: 2005 FECAL OCCULT BLOOD FECAL OCCULT BLOO D [facility] Start: 2005 SIGMOIDOSCOPY SIGMOIDOSCOPY [facility] Start: 1995 LIPID SCREEN LIPID SCREEN [facility] Start: 1979 Urine microalbumin profile DTAP,TDAP,TD (1 - Tdap) [facility] Start: 1978 HEPATITIS C SCREENING HEPATITIS C SC REENING [facility] Start: 1978 HIV SCREENING HIV SCREENING [facility] Start: 1972 Adult depression screening assessment DEPRESSION SCREENING [facility] Start: 05-25-1961 COVID-19 VACCINE (#1) COVID-19 VACCI NE (#1) [facility] URINALYSIS, REFLEX MICROSCOPIC URINALYSIS, REFLEX MICROSCOPIC Lab Routine Screening for genitourinary condition Ordered: 07/06/2022 [facility] Work Phone: Comment on above: Ordered: 07/06/2022 Immunizations Immunization Date Immunization Notes Care Provider Tenzin armenta 05-11-2014 tetanus toxoid, reduced diphtheria toxoid, and acellular pertussis vaccine, adsorbed Tray Oberer Other [facility] 06-06-2009 DTaP, unspecified formulation 8digits [facility] 06-06-2009 measles, mumps and rubella virus vaccine 8digits [facility] 06-06-2009 poliovirus vaccine, unspecified formulation 8digits [facility] NEGATED: Highlighted row has not occurred!06-12-2022 SARS-CoV-2 mRNA (torolandonameran 5y-11y) vaccine 8digits [facility] [place] NEGATED: Highlighted row has not occurred!04-17-2022 influenza, seasonal, injectable Patient Objection Tray Oberer Other [facility] Other NEGATED: Highlighted row has not occurred!04-16-2020 influenza, seasonal, injectable Patient Objection Tray Oberer Other [facility] Other NEGATED: Highlighted row has not occurred!04-13-2019 influenza, seasonal, injectable Patient Objection Tray Oberer Other [facility] Other Payers Date Payer Category Payer Private Health Insurance [id number] 2022 Self-pay [id number] 2022 Unknown [id number] 2021 Private Health Insurance [employer]O LAST OAP [id number] 2021-Present [phone] [id number] [place] [id number] Open Access [id number] 1960 Unknown [id number] 1960 Unknown [id number] 1960 Unknown [id number] 1960 Unknown [id number] 1960 Unknown [id number] 1959 Private Health Insurance [id number] Unknown [id number] Social History Date Type Detail Facility Sex Assigned At [facility] Other Tobacco smoking status No Smoking Status Entered [facility] Tobacco smoking status [facility] Tobacco smoking consumption unknown [facility] Start: 1960 Sex Assigned At Not on file [facility] Start: 06-26-2022 End: 07-06-2022 Exposure to SARS-CoV-2 (event) Not sure [facility] Work Phone: Start: 05-05-2019 Tobacco smoking status NHIS Ex-smoker (finding) [facility] Start: 1960 Sex Assigned At Male [facility] Tobacco smoking status No Smoking Status Entered [facility] [place] Start: 05-09-2024 Tobacco smoking status Never smoked tobacco (finding) [facility] Tobacco smoking status Never [facility] Functional Status Date Assessment Result Facility 05-09-2024 Functional Status N/A [facility] 06-12-2022 Functional Status N/A [facility] Clinical Notes 08-15-2006 to 05-09-2024 Note Date & Type Note Facility 05-09-2024 Hospital Discharge instructions Patient Education 05/09/2024 15:53:38 Prostate Cancer Screening Prostate Cancer Screening Prostate cancer screening is testing that is done to check for the presence of prostate cancer in men. The prostate gland is a walnut-sized gland that is located below the bladder and in front of the rectum in males. The function of the prostate is to add fluid to semen during ejaculation. Prostate cancer is one of the most common types of cancer in men. Who should have prostate cancer screening? Screening recommendations vary based on age and other risk factors, as well as between the professional organizations who make the recommendations. In general, screening is recommended if: You are age 50 to 70 and have an average risk for prostate cancer. You should talk with your health care provider about your need for screening and how often screening should be done. Because most prostate cancers are slow growing and will not cause , screening in this age group is generally reserved for men who have a 10- to 15-year life expectancy. You are younger than age 50, and you have these risk factors: ?Having a father, brother, or uncle who has been diagnosed with prostate cancer. The risk is higher if your family member's cancer occurred at an early age or if you have multiple family members with prostate cancer at an early age. ?Being a male who is Black or is of [place] or sub-Saharan descent. In general, screening is not recommended if: You are younger than age 40. You are between the ages of 40 and 49 and you have no risk factors. You are 70 years of age or older. At this age, the risks that screening can cause are greater than the benefits that it may provide. If you are at high risk for prostate cancer, your health care provider may recommend that you have screenings more often or that you start screening at a younger age. How is screening for prostate cancer done? The recommended prostate cancer screening test is a blood test called the prostate-specific antigen (PSA) test. PSA is a protein that is made in the prostate. As you age, your prostate naturally produces more PSA. Abnormally high PSA levels may be caused by: Prostate cancer. An enlarged prostate that is not caused by cancer (benign prostatic hyperplasia, or BPH). This condition is very common in older men. A prostate gland infection (prostatitis) or urinary tract infection. Certain medicines such as male hormones (like testosterone) or other medicines that raise testosterone levels. A rectal exam may be done as part of prostate cancer screening to help provide information about the size of your prostate gland. When a rectal exam is performed, it should be done after the PSA level is drawn to avoid any effect on the results. Depending on the PSA results, you may need more tests, such as: A physical exam to check the size of your prostate gland, if not done as part of screening. Blood and imaging tests. A procedure to remove tissue samples from your prostate gland for testing (biopsy). This is the only way to know for certain if you have prostate cancer. What are the benefits of prostate cancer screening? Screening can help to identify cancer at an early stage, before symptoms start and when the cancer can be treated more easily. There is a small chance that screening may lower your risk of dying from prostate cancer. The chance is small because prostate cancer is a slow-growing cancer, and most men with prostate cancer from a different cause. What are the risks of prostate cancer screening? The main risk of prostate cancer screening is diagnosing and treating prostate cancer that would never have caused any symptoms or problems. This is called overdiagnosisand overtreatment. PSA screening cannot tell you if your PSA is high due to cancer or a different cause. A prostate biopsy is the only procedure to diagnose prostate cancer. Even the results of a biopsy may not tell you if your cancer needs to be treated. Slow-growing prostate cancer may not need any treatment other than monitoring, so diagnosing and treating it may cause unnecessary stress or other side effects. Questions to ask your health care provider When should I start prostate cancer screening? What is my risk for prostate cancer? How often do I need screening? What type of screening tests do I need? How do I get my test results? What do my results mean? Do I need treatment? Where to find more information The [place] [employer]: www.cancer.org [employer] [employer]: www.auanet.org Contact a health care provider if: You have difficulty urinating. You have pain when you urinate or ejaculate. You have blood in your urine or semen. You have pain in your back or in the area of your prostate. Summary Prostate cancer is a common type of cancer in men. The prostate gland is located below the bladder and in front of the rectum. This gland adds fluid to semen during ejaculation. Prostate cancer screening may identify cancer at an early stage, when the cancer can be treated more easily and is less likely to have spread to other areas of the body. The prostate-specific antigen (PSA) test is the recommended screening test for prostate cancer, but it has associated risks. Discuss the risks and benefits of prostate cancer screening with your health care provider. If you are age 70 or older, the risks that screening can cause are greater than the benefits that it may provide. This information is not intended to replace advice given to you by your health care provider. Make sure you discuss any questions you have with your health care provider. Document Revised: 04/27/2022 Document Reviewed: 04/27/2022 [employer] Patient Education 2022 MONOCO. Follow Up Care 02/08/2024 13:32:47 With:CALIN WATERS, John Davila, URL Address: [address] [place] [address]- When: Unknown Comments:3-4 mos w/ PSA [facility] 05-09-2024 Note Chief Complaint re referral HPI Staff Re-referred by Dr. Reese for rise in PSA (pt rescheduled original re-referral appt from 11/09/23). Last seen in office 06/12/22. Was referred to Dr. Gaffney at [facility] for Peyronie's disease and was to follow up in 4 months with repeat PSA F&T but cancelled 10/13/22 appt and never rescheduled. Previous Dx: elevated PSA, injury of penile urethra. PSA 04/25/22 - 4.6 & 17.4% 10/16/23 - 5.7 & 14.4% 04/22/24 - 5.62 Dysuria: denies pain or burning Incomplete bladder emptying: denies Hematuria: denies visible blood Frequency: denies Urgency: denies Nocturia: denies Stream: yes slow stream in the morning Leaking: denies Post void dripping: denies Wearing pads/ Depends: denies Urge incontinence: denies Stress incontinence: denies Incontinence without Sensory Awareness: denies Abdominal pain: denies Flank pain: denies Sexual complaints: denies History of Present Illness Tests reviewed: reviewed UA, referral records, PSAs I have reviewed the previous health record information and history for this patient from Dr. Layton and external providers. I have reviewed and verified the staff HPI to be accurate for this encounter. Review of Systems PHQ Score Initial Depression Screen Score: 0 SCORE ROS - Provider Constitutional: denies weight loss, denies hot flashes. Eyes: denies eye problems. Gastrointestinal: denies nausea, denies vomiting. Cardiovascular: denies chest pain or angina. Integumentary: no dryness Musculoskeletal: denies musculoskeletal symptoms. ENMT: denies otolaryngeal symptoms. Respiratory: no shortness of breath. Heme/Lymph: denies easy bleeding tendency, denies easy bruising tendency. Psychiatric: no confusion, no anxiety. Genitourinary: See HPI. Physical Exam Vitals & Measurements RR: 16 BP: 126/88 HT: 69 in HT: 176 cm WT: 96.5 kg WT: 212.3 lb BMI: 31.15 General Appearance: alert, no distress, well nourished, well developed male. Assessment/Plan 1. Elevated PSA (R97.20: Elevated prostate specific antigen [PSA]) PSA 04/25/22 - 4.6 & 17.4% 04/17/23 - 4.7 & 18.5% 10/16/23 - 5.7 & 14.4% 04/22/24 - 5.62 GINO 06/12/22: 45g, benign UA today negative for blood and infection. PSA has been increasing over the last 2 years but recent level has decreased from previous. Reports change in diet in the last 6 months. Has lost 35lbs. Educated pt diet does not affect PSA level. Advised pt an elevated PSA could indicate prostate cancer, prostate infection, prostate inflammation without infection, prostate manipulation, or benign prostate enlargement (BPH). Discussed the importance of the rate of PSA rise. The options for management have been discussed, including close monitoring of the PSA over time vs prostate MRI which could lead to a biopsy vs prostate biopsy. Pt agrees with close monitoring at this time. -PSA FT in 3-4 mos -Consider prostate MRI only if PSA rises 2. ED (erectile dysfunction) (N52.9: Male erectile dysfunction, unspecified) Had an injury during intercourse years ago. Was referred to [facility] at prior OV in 2021. Saw Dr. Gaffney 07/06/22 who recommended Sildenafil 100mg prn and Xiaflex. Pt did not try Sildenafil due to concern for SEs with BP. Educated pt on pathophysiology of ED and medication SEs. Pt is interested in trying Sildenafil now. Discussed ability to titrate dosage. -Start Sildenafil 20mg prn, can take up to 100mg. Rx sent to [facility]. Discussed the medication side effects, and the patient will monitor closely for these, as well as for symptom improvement. If severe side effects occur, the medication should be stopped and the office notified. 3. Peyronie's disease (N48.6: Induration penis plastica) See #2. 4. BPH (benign prostatic hyperplasia) (N40.0: Benign prostatic hyperplasia without lower urinary tract symptoms) IPSS 2. No urinary concerns. On saw palmetto. Educated pt there are not any proven studies on herbal supplements improving urination but some pts have had benefits. -Cont sx monitoring The patient is here with his today. Multiple questions answered. In essence he continues to have moderate ED and was afraid to take the medication secondary to the possibility of side effects. He is also getting some lightheadedness and dizziness so is my recommendation to have the 20 mg pill available and he can titrate this to his side effects and effect of the medication. We discussed that there is no distinct diet to prevent prostate cancer. Discussion also took place regarding his PSA levels which had increased to 5.7 from 4.7 in 2022 and the current level is fairly stable at 5.6. There was some confusion about PSA level documentation. My recommendation then was for a 3 to 4-month follow-up with a repeat free and total PSA. Should the PSA continue to increase we could consider the MRI which could lead to a fusion biopsy. 45 minutes spent. Portions of this record may have been created with voice recognition art (more content not included)... [facility] Comment on above: Result Comment: Elec tronically Signed By: John LAYTON MD\.br\Date and Time Signed: 05/09/24 16:52 EDT\.br\Electronically Co-Signed By: Geni Hale\.br\Date and Time Co-Signed: 05/09/24 16:20 EDT 10-22-2023 Hospital Discharge instructions Follow Up Care 10/22/2023 14:15:28 With:John LAYTON MD, URL Address: [facility] [employer] [address] [address]- When: Unknown [facility] 10-18-2023 Evaluation note Encounter Date Diagnosis Assessment Notes Oct, Elevated PSA (ICD-10 - R97.20) [employer] [facility] Other 06-12-2023 Evaluation note* Encounter Date Diagnosis [...] and does not want to follow with [facility] urology Apr, Well adult exam (ICD -10 - Z00.00) Well care discussedLast colonoscopy 2018 (up-to-date). Prostate cancer screening as above.He continues to not want any vaccines.Healthy diet, exercise, weight encouragedHe will get us a copy of his work wellness papers for completion Apr, Other Repeat total PS A in 6 months at [facility] labRTO 1 year preceded by fasting CBC, BMP, hepatic panel, lipid profile, total PSA at [facility] and sooner as needed or pending above. [facility] Other 05-01-2023 Evaluation note* Encounter Date Diagnosis Assessment Notes Treatment Notes Treatment Clinical Notes March, Hypercholesterolemia (ICD-10 - E78.00) March, Elevated PSA (ICD-10 - R97.20) [facility] Other 08-22-2022 NotePatient Outreach (UROLMN) FATOU ARROYO ([id number]) 1960 Date Time Provider Department 07/06/22 FATOU GAFFNEY UROYAMILETH During your visit today, we recorded the following information about you: Allergies As of Date: 07/06/2022 (No Known Allergies) Date Reviewed: 07/06/2022 Reviewed by: Franci Fraga Ma - Fully Assessed Visit Diagnosis:Screening for genitourinary condition [Z13.89] Order(s):URINALYSIS, REFLEX MICROSCOPIC [[id number]] Order #: [id number]. 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 Author Type: Physician Type: Progress Notes Filed: 07/06/2022 7:13 PM Note Text: [facility] NEW PATIENT HISTORY AND PHYSICAL EXAM PATIENT INFO: Fatou Arroyo 61 year old REFERRING M.D.: Jude Mei MD [address] [facility] [id number] This consult was requested by Dr. Mei for an opinion regarding peyronies disease, and my final recommendations will be communicated to the requesting health care provider by way of the shared medical record for internal providers or letter via the [employer] for external providers. HISTORY Chief [...] more focal thickening near midshaft. ASSESSMENT/PLAN: 1. Peyronie's d (more content not included)...[facility] 06-12-2022 Hospital Discharge instructions Patient Education [...] including vitamins, herbs, eye drops, creams, and [id number]-[id number] medicines. This also includes: ?Medicines to assist [...] 12/04/2005 Document Revised: 10/14/2018 Document Reviewed: 08/08/2018 [employer] Patient Education 2020 MONOCO. 06/12/2022 09:22:32 Calorie Counting for Weight Loss [...] 11/01/2006 Document Revised: 07/21/2019 Document Reviewed: 10/01/2017 [employer] Patient Education [employer]. Follow Up Care 05/06/2022 10:37:31 With:CALIN WATERS, John Davila, URL Address: When:Within 4 Year(s) Comments:w/PSA F/T [facility] [place] 06-13-2022 Evaluation note* Encounter Date Diagnosis Assessment Notes Treatment Notes Treatment Clinical Notes Apr, Elevated PSA (ICD-10 - R97.20) [facility] Other 06-03-2022 Evaluation note* Encounter Date Diagnosis [...] screening (ICD-10 - Z12.11) See dictation above 03 Gibson, 2022 Obesity (BMI 30-39.9) (ICD-10 - E66.9) We [...] is going to get them done at [facility]. He is going to send us his work wellness form for completion RTO 1 year preceded by fasting labs (I will use the above lab results to determine what he needs next year) and sooner as needed or pending above. [facility] Other [id number] History general Narrative - Reported* Type Description Date Medical History Hypercholesterolemia Medical History OA Rt Shoulder (X-Ray) Surgical History Tonsillectomy 1962 Surgical History Bone graphs below teeth Surgical History Vascectomy 08/2006 Surgical History right shoulder surgery 2008 [facility] Other Evaluation + Plan note Future Appointments Appointment Date:09/25/2022 08:00:00 AM Scheduled Provider:John LAYTON MD Location:[facility] Appointment Type:URO Office Visit Diagnostic Tests Pending * PSA Free & Total 06/12/22 [facility] Evaluation + Plan note Future Appointments Appointment Date:09/05/2024 01:00:00 PM Scheduled Provider:John LAYTON MD [facility] Appointment Type:URO Office Visit Diagnostic Tests Pending * PSA Free & Total 05/09/24 [facility] Evaluation note* Diagnosis Screening for genitourinary condition Screening for other and unspecified genitourinary condition documented in this encounter [facility] Work Phone: Evaluation noteNo InformationNort 2theloo Other Hospital course Narrative No data available for this section [facility] Progress note No data available for this section [facility] [place] Reason for referral (narrative) Referred by: John LAYTON MD [facility] [place] media[employer]er Summary Purpose Family History No Family History Records Found Relationship Condition Age at Onset Recorded Date/T shanda Not Specified Malignant neoplasm of breast Unknown father Chronic obstructive pulmonary disease Unk nown Relationship Condition Age at Onset Recorded Date/T shanda Not Specified Malignant neoplasm of breast Unknown father Chronic obstructive pulmonary disease Unk nown father Hypertension Unknown Not Specified High blood cholesterol Unknown Hypertension Unknown Malignant neoplasm Unknown sister High blood cholesterol Unknown Advance Directives No Advanced Directives Records Found Advance Directive Response Recorded Date/ Time Advance Directives No May 01 12:37pm Chief Complaint and Reason for Visit Chief Complaint R19.04 Chief Complaint 6 month/labs Reason for Referral Reason evaluate and treat Diagnosis 1 Elevated PSA (R97.20 ) Referral Organization [facility] Family Burke Hu Referring Provider First Name Tray Referring Provider Last Name Oberer Referring Provider Specialty Family Prac polly Referred Organization [facility] Referred Provider John Layton Referred Address [address],[place], [place],[address] Referred Provider Specialty Urology Referral Priority Routine Additional Source Comments (unrecognized sect ion and content) No Status Records FoundNo Status Records FoundNo Status Records FoundNo Status Records Found INFORMATION SOURCE (unrecogn ized section and content) DATE CREATED AUTHOR 05/01/2022 [facility] DATE CREATED AUTHOR AUTHOR'S ORGANIZ ATION 07/10/2022 [facility] DATE CREATED AUTHOR AUTHOR'S ORGANIZ ATION 08/12/2022 [facility] DATE CREATED AUTHOR AUTHOR'S ORGANIZ ATION 05/10/2024 [facility] REASON FOR VISIT (unrecogniz ed section and content) lab orders1 year Follow up, flu shot never gets LB, did not get labs done LB, would like to loose weight and is unable to do so LB, pharmacy [facility] LB, COVID-vaccine, 6 pound weight gain, Colon cancer screening, prostate cancer screening, Colonoscopy 2019, Wellness form, required labsLABS NEEDED?WELLNESS, Pharmacy: [facility]. lfr, Refills:, Smoker: Quit 02/1993. lfr, PHQ [...] Member Role Status Dates Tray Reese , DO Primary Care Provider Active Eliezer Tejada DO Attending Provider Active Team Status: Active Member Role Status Dates Tray Obrachaelr , DO Primary Care Provider Active Team Status: Active Member Role Status Dates Tray Obrachaelr , DO Primary Care Provide r, Attending Provider Active Start: April 22, 2024 Team Status: Inactive Member Role Status Dates Tray Obrachaelr , DO Primary Care Provide r, Attending Provider Active Start: April 27, 2024 End: April 27, 2024 Source Comments (unrecognize d section and content) In the event this informatio n is protected by the Federal Confidentiality of Alcohol and Drug Abuse Patient Records regulations: The Federal rules restrict any use of the information to criminally investigate or prosecute any alcohol or drug abuse patient.[facility] Goals (unrecognized section and content) [...] BE BASED ON THE PRIMARY CLINICAL RECORDS. [facility] [employer] [facility]. provides no warranty or guarantee of the accuracy or completeness of information in this document.
[2024-08-27 07:06] LABS: PSA, Free 1.04 ng/mL; Prostate Specific Ag 6.2 ng/mL (0.0-4.0)
== END 2024-08-26 06:32 | disposition home or self-care (01) ==
LOC: LAB 06:31
PROVIDERS: PCP Family Medicine; Visit Provider Urology
DX: R97.20 Elevated prostate specific antigen [PSA] (principal)
CPT/HCPCS: 36415; 84153; 84154

== ENCOUNTER 2025-01-13 06:31 | Outpatient (OUT) | payer OTHER, SELFPAY ==
--- OUTSIDE RECORDS SUMMARY | 2025-01-13 06:33 | XMS_ITS | CCD ---
Author Organization [facility] Inform ion [facility] Care Team Providers Care Public Relations Consultant Name Role Phone JESUS MANUELR, DR CHURCHILL [...] e DO Tray Reese Primary Care Provider [phone] DO Eliezer Tejada Attending Provider Tray Reese Primary Care Unavailable Eliezer Tejada Attending Unavailable Eliezer Tejada Admitting Unavailable John LAYTON Attending Unavailable John LAYTON Attending Unavailable John LAYTON Attending Unavailable Allergies Allergy Classification Reported Allergen(s) Allergy Type Date of Onset Reaction(s) Facility (7 sources) Lovastatin; Translations: [lovastatin] Drug Allergy Joint Pain [facility] Repository (6 sources) Pravastatin Drug Allergy ED,Leg weakness [facility] August Other (7 sources) Decongestant; Translations: [Decongestant] Drug allergy Insomnia [facility] Repository (1 source) Pravastatin; Translations: [Pravachol] Drug Allergy [facility] Medications Current Medications Medication Drug Class(es) Dates Sig (Normalized) Sig (Original) Magnesium (2 sources) Start: 05-09-2024 Magnesium 2 gram IVPB Refills(s) 0 Start Date: 05/09/24 Status: Ordered Multivitamin preparation (2 sources) Start: 05-03-2019 take 1 tablet by mouth once daily Multivitamin Active 1 TAB PO Daily May 03, 2019 12:00am Saw palmetto extract (2 sources) Start: 05-09-2024 saw palmetto Oral, Refill(s) 0 Start Date: 05/09/24 Status: Ordered Vitamin D3 (2 sources) Start: 05-09-2024 Vitamin D3 Refills(s) 0 Start Date: 05/09/24 Status: Ordered Completed/Discontinued Medications Medication Drug Class(es) Dates Sig (Normalized) Sig (Original) sildenafil 20 mg oral tablet (2 sources) Phosphodiesterase 5 Inhibitor Start: 05-09-2024 take 1-5 tablets by mouth every hour, then take 5 tablets by mouth every twenty-four hours sildenafil 20 mg oral tablet 20 mg = 1 tab(s), Oral, As Directed, Take 1-5 tabs one hour prior to sexual activity. Do not exceed 100mg in 24 hours., # 30 tab(s), Refills(s) 0, Pharmacy: [id number], 176, cm, 05/09/24 15:40:00 EDT, Height/Length Dosing, 96.5, kg, 05/09/24 15:40:00 EDT, Weight Dosing Start Date: 05/09/24 Status: Ordered Triamcinolone (12 sources) Corticosteroid Start: 08-21-2020 Kenalog -40 mg Aug, 40 mg Start: 03-23-2017 Kenalog -40 mg March, Problems Problem Classification Problem Date Documented Da te Episodic/Chronic Crushing injury or internal injury (5 sources) Injury of urethra; Translations: [Other injury of urethra, initial encounter] Onset: 06-12-2022 Episodic Disorders of lipid metabolism (14 sources) Pure hypercholesterolemia , unspecified; Translations: [Hypercholesterolemi a] Onset: 04-28-2022 01-26-2014 Chronic Hyperplasia of prostate (3 sources) Benign prostatic hypertrophy without outflow obstruction; Translations: [Benign prostatic hyperplasia without lower urinary tract symptoms] Onset: 05-09-2024 Chronic Osteoarthritis (16 sources) Osteoarthritis of knee; Translations: [Unilateral primary osteoarthritis, left knee] Onset: 04-17-2022 Resolved: 04-17-2022 Chronic Other connective tissue disease (3 sources) Synovial cyst of popliteal space; Translations: [Synovial cyst of popliteal space [[place]], left knee] Episodic Other connective tissue disease (4 sources) Impingement syndrome of shoulder region 01-26-2014 Episodic Other diseases of kidney and ureters (1 source) Disorder of kidney and ureter, unspecified Episodic Other gastrointestinal disorders (2 sources) Occult blood in stools; Translations: [Other fecal abnormalities] 05-05-2019 Episodic Other male genital disorders (10 sources) Impotence; Translations: [Male erectile dysfunction, unspecified] 06-09-2022 Chronic Other male genital disorders (11 sources) Induratio penis plastica; Translations: [Induration penis [...] penis plastica Chronic Other non-traumatic joint disorders (4 sources) Shoulder pain 01-26-2014 Episodic Other nutritional; endocrine; and metabolic disorders (11 sources) Body mass index 30+ - obesity; Translations: [Obesity, unspecified] 06-12-2022 Chronic Other nutritional; endocrine; and metabolic disorders (2 sources) Obesity, unspecified Onset: 04-17-2022 Resolved: 04-17-2022 Chronic Other nutritional; endocrine; and metabolic disorders (1 source) Obese class I; Translations: [Body mass index (BMI) 34.0-34.9, adult] Onset: 06-12-2022 Chronic Other screening for suspected conditions (not mental disorders or infectious disease) (18 sources) Elevated prostate specific antigen [PSA]; Translations: [Encounter for screening for malignant neoplasm of prostate] Onset: 04-17-2022 Resolved: 04-27-2022 Episodic Other skin disorders (3 sources) Epidermoid cyst of skin; Translations: [Sebaceous cyst] Episodic Unclassified (1 source) Left lower quadrant abdominal swelling, mass and lump; Translations: [Left lower quadrant abdominal swelling, mass and lump] Onset: 07-16-2022 Results Test Name Value Interpretation Reference Range Facility Patient Letter FTon [address] [facility] Patient Letter [facility] [address] [address] December 26, 2024 FATOU CRUZ [address] [place] [address] : 1960 Dear Mr. Arroyo, I am corresponding to you by certified mail because you have a medical condition, elevated PSA, which requires follow up. It was recommended that you follow up with me with repeat PSA levels, but we have been unable to contact you despite multiple attempts. Your mailbox is full. Please contact my office at your earliest convenience and we will reschedule your appointment so I can closely monitor your condition. I cannot be responsible for your urologic care if you do not follow up as recommended. Sincerely, John Layton M.D., FACS [facility] CALIN WATERS, John Davila [facility] Provider Letteron 10-03-2024 Provider Letter Provider Letter October 03, 2024 FATOU [place]ROYO [address] [place] [address] : 1960 Dear Mr. Arroyo, We have been trying to reach you with no success because your voicemail is full on our attempts to reach you. You had an appointment with Dr Layton on Sep 05, 2024 which he asks that you call and reschedule. Please contact the office at the number listed below to get this appointment rescheduled at your earliest convenience. Call [phone] option 2. Thank you for your prompt attention to this matter. Sincerely, [facility] Screenson 05-10-2024 Screens [id number] [phone] [id number]# 1.00[facility] Patient Educationon 05-09-20 Patient Education Oncology Prostate [...] Where to find more information ? The [place] [employer]: www.cancer.org ? [place] [employer]: www.auanet.org Contact a health care [...] adds flu (more content not included)... Normal [facility] 04-27-2024 Lab Reports [id number] [phone] [id number]#1. 00TIFF Normal [facility] Basophils Auto (Bld) [#/Vol] on 04-22-2024 Basophils (Bld) [#/Vol] 0.1 10 3/uL 0.0-0.1 [facility] Basophils/100 WBC Auto (Bld) on 04-22-2024 Basophils/100 WBC (Bld) 0.8 % 0.2-2.0 [facility] Cholesterol in LDL Calc [Mas s/Vol]on 04-22-2024 Cholesterol in LDL [Mass/Vol] 139.4 mg/dL [facility] Comment on above: <100 mg/dl [id number] 0-129 mg/dl NEAR OR ABOVE [id number] mg/dl BORDERLINE [id number] mg/dl HIGH>190 mg/dl VERY HIGH Cholesterol in VLDL Calc [Ma ss/Vol]on 04-22-2024 Cholesterol in VLDL [Mass/Vol] 8.6 mg/dL [facility] Eosinophils/100 WBC Auto (Bl d)on 04-22-2024 Eosinophils/100 WBC (Bld) 7.4 % 0.9-7.0 [facility] Erythrocyte distribution wid th Auto (RBC) [Ratio]on 04-22-2024 Erythrocyte distribution width (RBC) [Ratio] 12.9 % 11.0-15.0 [facility] Estimated glomerular filtrat ion rate (GFR) non- Americanon 04-22-2024 GFR/1.73 sq M.predicted among non-blacks MDRD (S/P/Bld) [Vol rate/Area] mL/min/{1.73_m2} >=60 [facility] Globulin Calc (S) [Mass/Vol] on 04-22-2024 Globulin (S) [Mass/Vol] 3.1 g/dL [facility] Hematocrit Auto (Bld) [Volum e fraction]on 04-22-2024 Hematocrit (Bld) [Volume fraction] 42.0 % 42.0-54.0 [facility] Hemoglobin [Mass/volume] in Bloodon 04-22-2024 Hemoglobin (Bld) [Mass/Vol] 14.4 g/dL 14.0-18.0 [facility] Laboratory - Chemistry and C hemistry - challengeon 04-22-2024 Albumin [Mass/Vol] 3.5 g/dL 3.4-5.0 [facility] ALP [Catalytic activity/Vol] 53 U/L 46-116 [facility] ALT [Catalytic activity/Vol] 23 U/L 16-63 [facility] AST [Catalytic activity/Vol] 19 U/L 15-37 [facility] Bilirubin [Mass/Vol] 0.5 mg/dL 0.2-1.0 [facility] Bilirubin.direct [Mass/Vol] 0.1 mg/dL 0.0-0.2 [facility] Calcium [Mass/Vol] 8.6 mg/dL 8.5-10.1 [facility] Chloride [Moles/Vol] 107 mmol/L 98-107 [facility] Cholesterol [Mass/Vol] 196 mg/dL <=200 [facility] Cholesterol in HDL [Mass/Vol] 48 mg/dL 40-60 [facility] Comment on above: > or =60 mg/dl - LOW CARDIOVASCULAR RISK<40 mg/dl - HIGH CARDIOVASCULAR RISK CO2 [Moles/Vol] 27.0 mmol/L 21.0-32.[address] [facility] Creatinine [Mass/Vol] 1.18 mg/dL 0.70-1.30 [facility] GFR/1.73 sq M.predicted MDRD (S/P/Bld) [Vol rate/Area] mL/min/{1.73_m2} >=60 [facility] Glucose [Mass/Vol] 88 mg/dL 74-106 [facility] Potassium [Moles/Vol] 4.0 mmol/L 3.5-5.1 [facility] Protein [Mass/Vol] 6.6 g/dL 6.4-8.2 [facility] Sodium [Moles/Vol] 142 mmol/L 136-145 [facility] Triglyceride [Mass/Vol] 43 mg/dL <=150 [facility] Urea nitrogen [Mass/Vol] 18.0 mg/dL 7.0-18.0 [facility] Urea nitrogen/Creatinine [Mass ratio] 15.3 mg/mg [facility] Laboratory - Hematology and Cell countson 04-22-2024 Immature granulocytes/100 WBC (Bld) 0.2 % 0.0-0.5 [facility] Leukocytes [#/volume] correc oj for nucleated erythrocytes in Blood by Automated counon 04-22-2024 WBC corrected for nucl RBC Auto (Bld) [#/Vol] 6.3 10 3/uL 4.0-11.0 [facility] Lymphocytes Auto (Bld) [#/Vo l]on 04-22-2024 Lymphocytes (Bld) [#/Vol] 2.0 10 3/uL 1.2-3.8 [facility] Lymphocytes/100 WBC Auto (Bl d)on 04-22-2024 Lymphocytes/100 WBC (Bld) 31.5 % 20.5-60.0 [facility] MCH Auto (RBC) [Entitic mass ]on 04-22-2024 MCH (RBC) [Entitic mass] 31.0 pg 25.9-34.0 [facility] MCHC Auto (RBC) [Mass/Vol]on 04-22-2024 MCHC (RBC) [Mass/Vol] 34.3 g/dL 29.9-35.2 [facility] MCV Auto (RBC) [Entitic vol] on 04-22-2024 MCV (RBC) [Entitic vol] 90.5 fL 80.0-94.0 [facility] Monocytes Auto (Bld) [#/Vol] on 04-22-2024 Monocytes (Bld) [#/Vol] 0.6 10 3/uL 0.3-0.8 [facility] Monocytes/100 WBC Auto (Bld) on 04-22-2024 Monocytes/100 WBC (Bld) 9.7 % 1.7-12.0 [facility] Neutrophils Auto (Bld) [#/Vo l]on 04-22-2024 Neutrophils (Bld) [#/Vol] 3.2 10 3/uL 1.4-6.5 [facility] Neutrophils/100 WBC Auto (Bl d)on 04-22-2024 Neutrophils/100 WBC (Bld) 50.4 % 43.0-75.0 [facility] No Panel Informationon 04-22 Eosinophils # (Auto) 0.5 10 3/uL 0.0-0.7 [facility] Immature Granulocyte # (Auto) 0.01 10 3/uL 0.00-0.03 [facility] Prostate Specific Antigen Screen 5.62 ng/mL <=4.00 [facility] Platelet mean volume Auto (B ld) [Entitic vol]on 04-22-2024 Platelet mean volume (Bld) [Entitic vol] 9.9 fL 9.5-13.5 [facility] Platelets Auto (Bld) [#/Vol] on 04-22-2024 Platelets (Bld) [#/Vol] 202 10 3/uL 150-450 [facility] RBC Auto (Bld) [#/Vol]on RBC (Bld) [#/Vol] 4.64 10 6/uL 4.70-6.10 [facility] Serum or plasma albumin/glob ulin mass ratioon 04-22-2024 Albumin/Globulin [Mass ratio] 1.1 {ratio} [facility] Serum or plasma anion gap de terminationon 04-22-2024 Anion gap [Moles/Vol] 12.0 mmol/L [facility] Serum or plasma total choles terol/high density lipoprotein (HDL) cholesterol mass chrissy 04-22-2024 Cholesterol.total/Ch olesterol in HDL [Mass ratio] 4.1 {ratio} [facility] Comment on above: 3.3 - 4.4 LOW RISK4. 4 - 7.1 AVERAGE RISK7.1 - 11.0 MODERATE RISK>11.0 HIGH RISK Sandeep 07-16-2022 L - -------- Specimen: [id number] Received: 07/16/22 Status: MAKI Holt Num: [id number] Spec Type: Surgical Subm Dr: Eliezer Tejada,DO Tissues: A Soft Tissue/Surgical Margin-Other than Tumor,Mass,Lip or Katerine (LT LOWER ABDOM Procedures: HE Stain, Gross/Micro L4 -------- Age/ Patient Sex Location Account Attending Physician -------- Fatou Arroyo JR/[facility] [id number] Eliezer Tejada DO -------- SPEC NUM: [id number] RECD: 07/16/22 STATUS: MAKI HOLT NUM: [id number] ANGEL: 07/16/[address] [facility] [address]: Eliezer Tejada DO ENTERED: 07/16/[address] [facility] [address]: Dante [facility] SPEC TYPE: Surgical DEPT: S ORDERED: HE [...] the cut surface is homogeneous, yellow-ac, lobular.. Internal Audit Senior Manager sections are submitted in one cassette labeled A1. Microscopic Description One glass slide with H E stained material has been examined. The pathologist's interpretation is performed at [facility]. The microscopic findings support the above pathologic diagnosis. -------- Specimen: [id number] Received: 07/16/22 Status: MAKI Landerossarah Num: [id number] Spec Type: Surgical Subm Dr: Eliezer Tejada, Tissues: A Soft Tissue/Surgical Margin-Other than Tumor,Mass,Lip or Katerine (LT LOWER ABDOM Procedures: HE Stain, Gross/Micro L4 -------- Patient: Fatou Arroyo JR [id number] (Continued) -------- Specimen: [id number] Received: 07/16/22 (Continued) Signed (signature on file) Artie Flor MD 07/19/22 2318 -------- Specimen: [id number] Received: 07/16/22 Status: MAKI Holt Num: [id number] Spec Type: Surgical Subm Dr: Eliezer Tejada DO Tissues: A Soft Tissue/Surgical Margin-Other than Tumor,Mass,Lip or Katerine (LT LOWER ABDOM Procedures: HE Stain, Gross/Micro L4 -------- Patient: Fatou Arroyo JR [id number] (Continued) -------- Specimen: [id number] Received: 07/16/22 (Continued) CPT Codes 59737 -------- -------- Specimen: [id number] Received: 07/16/22 Status: MAKI Holt Num: [id number] Spec Type: Surgical Subm Dr: Eliezer Tejada DO Tissues: A Soft Tissue/Surgical Margin-Other than Tumor,Mass,Lip or Katerine (LT LOWER ABDOM Procedures: HE Stain, Gross/Micro L4 -------- Patient: Fatou Arroyo JR [id number] (Continued) -------- Signed (signature on file) Artie Flor MD 07/19/22 5528 [facility] James 07-06-2022 NELIDA Office Visit (NILSA ) FATOU ARROYO ([id number]) 1960 M Date Time Provider Department 07/06/22 10:00 AM FATOU GAFFNEY During your visit today, we recorded the following information about you: Pulse Blood pressure Weight Height 49/minute 165/90 104.3 kg 1.753 m Fatou Gaffney MD 07/06/2022 7:13 PM Signed [facility] NEW PATIENT HISTORY AND PHYSICAL EXAM PATIENT INFO: Fatou Sonny Cruz 61 year old REFERRING M.D.: Jude Mei MD [address] Kayleigh [facility] [id number] This consult was requested by Dr. Mei for an opinion regarding peyronies disease, and my final recommendations will be communicated to the requesting health care provider by way of the shared medical record for internal providers or letter via the [employer] for external providers. HISTORY Chief [...] predated onset (more content not included)... Normal [facility] PSA, FREE AND TOTAL RATIOon 04-29-2022 % Free PSA 17.4 % Normal [facility] Comment on above: Result Comment: The table [...] men. Performed By: #### P SAFREE #### [facility] [address] [place] [address] Dr. Shelby Travis Prostate specific Ag [Mass/Vol] 4.6 ng/mL Critically high 0.0-4.0 [facility] Comment on above: Result Comment: Gabino PEREZ methodology. . According to the [place] [employer], Serum PSA should decrease and [...] disease. Performed By: #### P SAFREE #### [facility] [address] [place] [address] Dr. Shelby Travis PSA, Free 0.80 ng/mL Normal N/A [facility] Comment on above: Result Comment: Gabino PEREZ methodology. Performed By: #### P SAFREE #### [facility] [address] [place] [address] Dr. Shelby Travis CBC AUTO DIFFon 04-25-2022 BASO # 0.0 103/ul Normal 0.0-0.1 [facility] Comment on above: Performed By: #### C BC #### [facility] [address] [place] [address] Dr. Shelby Travis Basophils/100 WBC (Bld) 0.3 % Normal 0.2-2.0 [facility] Comment on above: Performed By: #### C BC #### [facility] [address] [place] [address] Dr. Shelby Travis EO # 0.1 103/ul Normal 0.0-0.7 [facility] Comment on above: Performed By: #### C BC #### [facility] [address] [place] [address] Dr. Shelby Travis Eosinophils/100 WBC (Bld) 1.4 % Normal 0.9-7.0 [facility] Comment on above: Performed By: #### C BC #### [facility] [address] [place] [address] Dr. Shelby Travis Erythrocyte distribution width (RBC) [Ratio] 12.9 % Normal 11.0-15.0 [facility] Comment on above: Performed By: #### C BC #### [facility] [address] [place] [address] Dr. Shelby Travis Hematocrit (Bld) [Volume fraction] 44.5 % Normal 42.0-54.0 [facility] Comment on above: Performed By: #### C BC #### [facility] [address] [place] [address] Dr. Shelby Travis Hemoglobin (Bld) [Mass/Vol] 15.3 g/dL Normal 14.0-18.0 [facility] Comment on above: Performed By: #### C BC #### [facility] [address] [place] [address] Dr. Shelby Travis IG # 0.01 10e3/ul Normal 0.00-0.03 [facility] Comment on above: Performed By: #### C BC #### [facility] [address] [place] [address] Dr. Shelby Travis IG % 0.2 % Normal 0.0-0.5 [facility] Comment on above: Performed By: #### C BC #### [facility] [address] [place] [address] Dr. Shelby Travis LYMPH # 1.5 103/ul Normal 1.2-3.8 [facility] Comment on above: Performed By: #### C BC #### [facility] [address] [place] [address] Dr. Shelby Travis Lymphocytes/100 WBC (Bld) 25.5 % Normal 20.5-60.0 [facility] Comment on above: Performed By: #### C BC #### [facility] [address] [place] [address] Dr. Shelby Travis MANUAL DIFF REQ NO Normal [facility] Comment on above: Performed By: #### C BC #### [facility] [address] [place] [address] Dr. Shelby Travis MCH (RBC) [Entitic mass] 30.8 pg Normal 25.9-34.0 [facility] Comment on above: Performed By: #### C BC #### [facility] [address] [place] [address] Dr. Shelby Travis MCHC (RBC) [Mass/Vol] 34.4 g/dL Normal 29.9-35.2 [facility] Comment on above: Performed By: #### C BC #### [facility] [address] [address] [address] Shelby Travis MCV (RBC) [Entitic vol] 89.5 fL Normal 80.0-94.0 [facility] Comment on above: Performed By: #### C BC #### [facility] [address] [address] [address] Shelby Travis MONO # 0.9 103/ul Critically high 0.3-0.8 [facility] Comment on above: Performed By: #### C BC #### [facility] [address] [place] [address] Dr. Shelby Travis Monocytes/100 WBC (Bld) 14.5 % Critically high 1.7-12.0 [facility] Comment on above: Performed By: #### C BC #### [facility] [address] [place] [address] Dr. Shelby Travis NEUT # 3.4 103/ul Normal 1.4-6.5 [facility] Comment on above: Performed By: #### C BC #### [facility] [address] [place] [address] Dr. Shelby Travis Neutrophils/100 WBC (Bld) 58.1 % Normal 43.0-75.0 [facility] Comment on above: Performed By: #### C BC #### [facility] [address] [place] [address] Dr. Shelby Travis Platelet mean volume (Bld) [Entitic vol] 9.6 fL Normal 9.5-13.5 [facility] Comment on above: Performed By: #### C BC #### [facility] [address] [place] [address] Dr. Shelby Travis PLT 184 103/ul Normal 150-450 [facility] Comment on above: Performed By: #### C BC #### [facility] [address] [place] [address] Dr. Shelby Travis RBC 4.97 106/ul Normal 4.70-6.10 [facility] Comment on above: Performed By: #### C BC #### [facility] [address] [address] [address] Shelby Travis WBC 5.9 103/ul Normal 4.0-11.0 [facility] Comment on above: Performed By: #### C BC #### [facility] [address] [address] [address] Shelby Travis LIPID PROFILEon 04-25-2022 CHOL-HDL RATIO NORM SEE BELOW Normal [facility] Comment on above: Result Comment: 3.3 - 4.4 LOW RISK 4.4 - 7.1 AVERAGE RISK 7.1 - 11.0 MODERATE RISK >11.0 HIGH RISK Performed By: #### L IPID, BMP, LIVER #### [facility] [address] [place] [address] Dr. Shelby Travis Cholesterol [Mass/Vol] 192 mg/dL Normal <=200 [facility] Comment on above: Performed By: #### L IPID, BMP, LIVER #### [facility] [address] [address] [address] Shelby Travis Cholesterol in HDL [Mass/Vol] 40 mg/dL Normal 40-60 [facility] Comment on above: Performed By: #### L IPID, BMP, LIVER #### [facility] [address] [place] [address] Dr. Shelby Travis Cholesterol in LDL [Mass/Vol] 138.2 mg/dL Normal [facility] Comment on above: Performed By: #### L IPID, BMP, LIVER #### [facility] [address] [address] [address] Shelby Travis Cholesterol.total/Ch olesterol in HDL [Mass ratio] 4.8 {ratio} Normal [facility] Comment on above: Performed By: #### L IPID, BMP, LIVER #### [facility] [address] [address] [address] Shelby Travis HDL NORMAL > or = 60 mg/dl - LO W CARDIOVASCULAR RISK <40 mg/dl - HIGH CARDIOVASCULAR RISK Normal [facility] Comment on above: Performed By: #### L IPID, BMP, LIVER #### [facility] [address] [address] [address] Shelby Travis LDL CALC NORMAL SEE BELOW Normal [facility] Comment on above: Result Comment: <100 mg/dl OPTIMAL 100 - 129 mg/dl NEAR OR ABOVE OPTIMAL 130 - 159 mg/dl BORDERLINE HIGH 160 - 189 mg/dl HIGH >190 mg/dl VERY HIGH Performed By: #### L IPID, BMP, LIVER #### [facility] [address] [address] [address] Shelby Travis Triglyceride [Mass/Vol] 69 mg/dL Normal <=150 [facility] Comment on above: Performed By: #### L IPID, BMP, LIVER #### [facility] [address] [address] [address] Shelby Travis VLDL CALC 13.8 mg/dL Normal [facility] Comment on above: Performed By: #### L IPID, BMP, LIVER #### [facility] [address] [address] [address] Shelby Travis LIVER PROFILEon 04-25-2022 Albumin [Mass/Vol] 3.7 g/dL Normal 3.4-5.0 [facility] Comment on above: Performed By: #### L IPID, BMP, LIVER #### [facility] [address] [address] [address] Shelby Travis Albumin/Globulin [Mass ratio] 1.1 {ratio} Normal [facility] Comment on above: Performed By: #### L IPID, BMP, LIVER #### [facility] [address] [address] [address] Shelby Travis ALP [Catalytic activity/Vol] 52 U/L Normal 46-116 [facility] Comment on above: Performed By: #### L IPID, BMP, LIVER #### [facility] [address] [address] [address] Shelby Travis ALT [Catalytic activity/Vol] 32 U/L Normal 16-63 [facility] Comment on above: Performed By: #### L IPID, BMP, LIVER #### [facility] [address] [place] [address] Dr. Shelby Travis AST [Catalytic activity/Vol] 20 U/L Normal 15-37 [facility] Comment on above: Performed By: #### L IPID, BMP, LIVER #### [facility] [address] [place] [address] Dr. Shelby Travis BILI, CONJUGATED 0.1 mg/dL Normal 0.0-0.2 [facility] Comment on above: Performed By: #### L IPID, BMP, LIVER #### [facility] [address] [place] [address] Dr. Shelby Travis Bilirubin [Mass/Vol] 0.6 mg/dL Normal 0.2-1.0 [facility] Comment on above: Performed By: #### L IPID, BMP, LIVER #### [facility] [address] [place] [address] Dr. Shelby Travis Globulin (S) [Mass/Vol] 3.3 g/dL Normal [facility] Comment on above: Performed By: #### L IPID, BMP, LIVER #### [facility] [address] [place] [address] Dr. Shelby Travis Protein [Mass/Vol] 7.0 g/dL Normal 6.4-8.2 [facility] Comment on above: Performed By: #### L IPID, BMP, LIVER #### [facility] [address] [place] [address] Dr. Shelby Travis PROF CHEM 8 (BAS METB)on Anion gap [Moles/Vol] 12.6 mmol/L Normal [facility] Comment on above: Performed By: #### L IPID, BMP, LIVER #### [facility] [address] [place] [address] Dr. Shelby Travis Calcium [Mass/Vol] 8.4 mg/dL Critically low 8.5-10.1 [facility] Comment on above: Performed By: #### L IPID, BMP, LIVER #### [facility] [address] [place] [address] Dr. Shelby Travis Chloride [Moles/Vol] 105 mmol/L Normal 98-107 [facility] Comment on above: Performed By: #### L IPID, BMP, LIVER #### [facility] [address] [address] [address] Shelby Travis CO2 [Moles/Vol] 25.6 mmol/L Normal 21.0-32.[address] [facility] Comment on above: Performed By: #### L IPID, BMP, LIVER #### [facility] [address] [address] [address] Shelby Travis Creatinine [Mass/Vol] 1.29 mg/dL Normal 0.70-1.30 [facility] Comment on above: Performed By: #### L IPID, BMP, LIVER #### [facility] [address] [address] [address] Shelby Travis EGFR-AF SWAZI >60 Normal >=[address] [facility] Comment on above: Performed By: #### L IPID, BMP, LIVER #### [facility] [address] [address] [address] Shelby Travis EGFR-NON AF SWAZI 57 mL/min/1.73m2 Critically low >=60 [facility] Comment on above: Performed By: #### L IPID, BMP, LIVER #### [facility] [address] [address] [address] Shelby Travis Glucose [Mass/Vol] 93 mg/dL Normal 74-106 [facility] Comment on above: Performed By: #### L IPID, BMP, LIVER #### [facility] [address] [address] [address] Shelby Travis Potassium [Moles/Vol] 4.2 mmol/L Normal 3.5-5.1 [facility] Comment on above: Performed By: #### L IPID, BMP, LIVER #### [facility] [address] [address] [address] Shelby Travis Sodium [Moles/Vol] 139 mmol/L Normal 136-145 [facility] Comment on above: Performed By: #### L IPID, BMP, LIVER #### [facility] [address] [place], [place] [address] Dr. Shelby Travis Urea nitrogen [Mass/Vol] 18.0 mg/dL Normal 7.0-18.0 [facility] Comment on above: Performed By: #### L IPID, BMP, LIVER #### [facility] [address] [place], [place] [address] Dr. Shelby Travis Urea nitrogen/Creatinine [Mass ratio] 14.0 mg/mg Normal [facility] Comment on above: Performed By: #### L IPID, BMP, LIVER #### [facility] [address] [place], [place] [address] Dr. Shelby Travis Vital Signs Date Time Vital Sign Value Performing Clinician Facility 05-09-2024 15:34-0400 Blood Pressure Location John Emotte [facility] 05-09-2024 15:34-0400 Diastolic blood pressure 88 mm[Hg] John Emotte [facility] 05-09-2024 15:34-0400 Respiratory rate 16 /min John Emotte [facility] 05-09-2024 15:34-0400 Systolic blood pressure 126 mm[Hg] John Emotte [facility] 04-27-2024 15:32-0400 Body height 175.26 cm [facility] 04-27-2024 15:32-0400 Body mass index (BMI) [Ratio] 30.1 kg/m2 [facility] 04-27-2024 15:32-0400 Body temperature 97.8 [degF] [facility] 04-27-2024 15:32-0400 Body weight 92.58 kg [facility] 04-27-2024 15:32-0400 Diastolic blood pressure 63 mm[Hg] [facility] 04-27-2024 15:32-0400 Heart rate 53 /min [facility] 04-27-2024 15:32-0400 Respiratory rate 16 /min [facility] 04-27-2024 15:32-0400 SaO2% (BldA) [Mass fraction] 97 % [facility] 04-27-2024 15:32-0400 Systolic blood pressure 130 mm[Hg] [facility] 04-26-2023 15:15-0400 Body height 175.26 cm Tray Oberer Other [facility] Other 04-26-2023 15:15-0400 Body mass index (BMI) [Ratio] 33.05 kg/m2 Tray Oberer Other [facility] Other 04-26-2023 15:15-0400 Body temperature 97.8 [degF] Tray Oberer Other [facility] Other 04-26-2023 15:15-0400 Body weight 101.52 kg Tray Oberer Other [facility] Other 04-26-2023 15:15-0400 Diastolic blood pressure 73 mm[Hg] Tray Oberer Other [facility] Other 04-26-2023 15:15-0400 Respiratory rate 16 /min Tray Oberer Other [facility] Other 04-26-2023 15:15-0400 SaO2% (BldA) [Mass fraction] 99 % Tray Oberer Other [facility] Other 04-26-2023 15:15-0400 Systolic blood pressure 128 mm[Hg] Tray Oberer Other [facility] Other 04-17-2022 17:00-0400 Body height 175.26 cm Tray Oberer Other [facility] Other 04-17-2022 17:00-0400 Body mass index (BMI) [Ratio] 35.16 kg/m2 Tray Oberer Other [facility] Other 04-17-2022 17:00-0400 Body temperature 98.4 [degF] Tray Oberer Other [facility] Other 04-17-2022 17:00-0400 Body weight 108 kg Tray Oberer Other [facility] Other 04-17-2022 17:00-0400 Diastolic blood pressure 72 mm[Hg] Tray Oberer Other [facility] Other 04-17-2022 17:00-0400 Respiratory rate 16 /min Tray Oberer Other [facility] Other 04-17-2022 17:00-0400 SaO2% (BldA) [Mass fraction] 96 % Tray Oberer Other [facility] Other 04-17-2022 17:00-0400 Systolic blood pressure 138 mm[Hg] Tray Oberer Other [facility] Other Encounters Encounter Date Encounter Type Care Provider Facility Start: 05-16-2025 ambulatory John LAYTON Facility :[facility] Start: 09-05-2024 End: 09-05-2024 ambulatory John LAYTON Facility:[facility] [place] Start: 09-05-2024 End: 09-05-2024 Patient encounter procedure John LAYTON [facility] [place] Start: 05-09-2024 End: 05-09-2024 ambulatory John LAYTON Facility: [place] Start: 05-09-2024 End: 05-09-2024 Patient encounter procedure John LAYTON [facility] [place] Start: 04-27-2024 End: 04-27-2024 ambulatory [facility] Work Phone: Start: 04-27-2024 End: 04-27-2024 Patient encounter procedure [facility] [place] Work Phone: Start: 04-22-2024 Non-patient / Non-visit [facility] [employer] Work Phone: Start: 11-11-2023 End: 11-11-2023 ambulatory Tray Oberer Other [facility] Other Start: 11-11-2023 Telephone encounter Tray Oberer [facility] [place] Start: 11-09-2023 End: 11-09-2023 Patient encounter procedure John LAYTON [facility] [place] Start: 10-18-2023 End: 10-18-2023 ambulatory Tray Oberer Other [facility] Other Start: 10-18-2023 Telephone encounter Tray Oberer [facility] [place] Start: 04-26-2023 End: 04-26-2023 ambulatory Tray Oberer Other [facility] Other Start: 04-26-2023 Encounter for genera l adult medical examination without abnormal findings Tray Oberer [facility] Start: 04-26-2023 Periodic preventive med est patient 40-64yrs Tray Oberer [facility] [place] Start: 03-15-2023 End: 03-15-2023 ambulatory Tray Reese Other [facility] Other Start: 03-15-2023 Telephone encounter Tray Reese [facility] Start: 07-16-2022 End: 07-16-2022 ambulatory Tray Reese Facility:[facility] Start: 07-16-2022 End: 07-16-2022 Departed Referred DO Tray Reese Work Phone: [facility] [place] Start: 07-06-2022 ambulatory Fatou smith MD Work Phone: Urology Start: 06-12-2022 End: 06-12-2022 Patient encounter procedure John Giovanni LAYTON [facility] Start: 04-28-2022 Encounter for genera l adult medical examination without abnormal findings DR TRAY REESE [facility] Start: 04-27-2022 End: 04-28-[address] TRAY REESE Facility:[facility] Start: 04-27-2022 Telephone [facility] Start: 04-25-2022 End: 04-26-[address] TRAY REESE Facility:[facility] Start: 04-25-2022 End: 04-26-2022 Encounter for general adult medical examination without abnormal findings DR TRAY REESE Facility:[facility] Start: 04-17-2022 End: 04-17-2022 ambulatory Tray Reese Other [facility] Other Start: 04-17-2022 Encounter for genera l adult medical examination without abnormal findings Tray Reese [facility] [place] Start: 04-17-2022 Periodic preventive med est patient 40-64yrs Tray Reese [facility] Procedures Date Procedure Procedure Detail Performing Clinician Start: 04-25-[address] TRAY CURRAN Comment on above: Performed By: #### [place] #### [facility] [address] [address] [address] Shelby Travis Extraction of wisdom tooth Regla ALYTON History of repair of musculotendinous cuff of shoulder H/O rotator cuff surgery History of tonsillectomy Deny LAYTON Plan of Treatment Date Care Activity Detail Author Start: 07-16-2022 Influenza vaccination INFLUENZA (#1) [facility] Start: 2015 PROSTATE CANCER SCREENING DISCUSSION PROSTATE CANCER SCREENING DISCUSSION [facility] Start: 2010 SHINGRIX VACCINE (1 of 2) SHINGRIX VACCINE (1 of 2) [facility] Start: 2005 COLOGUARD (FIT-DNA) COLOGUARD (FIT-D NA) [facility] Start: 2005 Colonoscopy COLONOSCOPY [facility] Start: 2005 COLORECTAL CANCER SCREENING COLORECTAL CANCER SCREENING [facility] Start: [address] COLONOGRAPHY [facility] Start: 2005 DIABETES SCREEN DIABETES SCREEN [facility] Start: 2005 FECAL OCCULT BLOOD FECAL OCCULT BLOO D [facility] Start: 2005 SIGMOIDOSCOPY SIGMOIDOSCOPY [facility] Start: 1995 LIPID SCREEN LIPID SCREEN [facility] Start: 1979 Urine microalbumin profile DTAP,TDAP,TD (1 - Tdap) [facility] Start: 1978 HEPATITIS C SCREENING HEPATITIS C SC BEE [facility] Start: 1978 HIV SCREENING HIV SCREENING [facility] Start: 1972 Adult depression screening assessment DEPRESSION SCREENING [facility] Start: 05-25-1961 COVID-19 VACCINE (#1) COVID-19 VACCI NE (#1) [facility] URINALYSIS, REFLEX MICROSCOPIC URINALYSIS, REFLEX MICROSCOPIC Lab Routine Screening for genitourinary condition Ordered: 07/06/2022 [facility] Work Phone: Comment on above: Ordered: 07/06/2022 Immunizations Immunization Date Immunization Notes Care Provider Tenzin armenta 05-11-2014 tetanus toxoid, reduced diphtheria toxoid, and acellular pertussis vaccine, adsorbed Tray Oberer Other [facility] 06-06-2009 DTaP, unspecified formulation John LAYTON [facility] 06-06-2009 measles, mumps and rubella virus vaccine John Emotte [facility] 06-06-2009 poliovirus vaccine, unspecified formulation John Emotte [facility] NEGATED: Highlighted row has not occurred!06-12-2022 SARS-CoV-2 mRNA (tozinameran 5y-11y) vaccine John Emotte [facility] NEGATED: Highlighted row has not occurred!04-17-2022 influenza, seasonal, injectable Patient Objection Tray Oberer Other [facility] Other NEGATED: Highlighted row has not occurred!04-16-2020 influenza, seasonal, injectable Patient Objection Tray Oberer Other [facility] Other NEGATED: Highlighted row has not occurred!04-13-2019 influenza, seasonal, injectable Patient Objection Tray Oberer Other [facility] Other Payers Date Payer Category Payer Private Health Insurance [id number] 2022 Self-pay [id number] 2022 Unknown [id number] 2021 Private Health Insurance DEO LAST OAP [id number] 2021-Present [phone] [address] [place] [address] Open Access [id number] 1960 Unknown [id number] 1960 Unknown [id number] 1960 Unknown [id number] 1960 Unknown [id number] 1960 Unknown [id number] 1959 Private Health Insurance [id number] Unknown [id number] Social History Date Type Detail Facility Sex Assigned At [facility] Other Tobacco smoking status No Smoking Status Entered [facility] Tobacco smoking status [facility] Tobacco smoking consumption unknown [facility] Start: 1960 Sex Assigned At Not on file [facility] Start: 06-26-2022 End: 07-06-2022 Exposure to SARS-CoV-2 (event) Not sure [facility] Work Phone: Start: 05-05-2019 Tobacco smoking status NHIS Ex-smoker (finding) [facility] Start: 1960 Sex Assigned At Male F [facility] Tobacco smoking status No Smoking Status Entered [facility] Start: 05-09-2024 Tobacco smoking status Never smoked tobacco (finding) [facility] Tobacco smoking status Never [facility] [place] Functional Status Date Assessment Result Facility 05-09-2024 Functional Status N/A [facility] 06-12-2022 Functional Status N/A [facility] [place] Clinical Notes 08-15-2006 to 05-09-2024 Note Date [...] treatment? Where to find more information [employer] [place] [employer]: www.cancer.org [place] [employer]: www.auanet.org Contact a health care [...] provider. Document Revised: 04/27/2022 Document Reviewed: 04/27/2022 [employer] Patient Education 2022 [employer]. Follow Up Care 02/08/2024 13:32:47 With:CALIN WATERS, John Davila, URL Address: [facility] [place] [address]- When: Unknown Comments:3-4 mos w/ PSA [facility] [place] 05-09-2024 Note Chief Complaint re referral [facility] Staff Re-referred by Dr. Reese for rise in PSA (pt rescheduled original re-referral appt from 11/09/23). Last seen in office 06/12/22. Was referred to Dr. Gaffney at [facility] for Peyronie's disease and was to [...] IPSS 2. No urinary concerns. On saw mario. Educated pt there are not any proven [...] voice recognition art (more content not included)... [facility] Comment on above: Result Comment: Elec tronically Signed By: John LAYTON MD\.br\Date and Time Signed: 05/09/24 16:52 EDT\.br\Electronically Co-Signed By: Geni Hale\.br\Date and Time Co-Signed: 05/09/24 16:20 EDT 10-22-2023 Hospital Discharge instructions Follow Up Care 10/22/2023 14:15:28 With:John LAYTON MD, URL Address: [address] [place], [place] [id number]- When: Unknown [facility] [place] 10-18-2023 Evaluation note Encounter Date Diagnosis Assessment Notes Oct, Elevated PSA (ICD-10 - R97.20) [facility] Other 06-12-2023 Evaluation note* Encounter Date Diagnosis [...] and does not want to follow with [facility] Apr, Well adult exam (ICD -10 - Z00.00) Well care discussedLast colonoscopy 2019 (up-to-date). Prostate cancer screening as above.He continues to not want any vaccines.Healthy diet, exercise, weight encouragedHe will get us a copy of his work wellness papers for completion Apr, Other [facility] 1 year preceded by fasting CBC, BMP, hepatic panel, lipid profile, total PSA at [facility] and sooner as needed or pending above. [facility] Other 05-01-2023 Evaluation note* Encounter Date Diagnosis Assessment Notes Treatment Notes Treatment Clinical Notes March, Hypercholesterolemia (ICD-10 - E78.00) March, Elevated PSA (ICD-10 - R97.20) [facility] Other 08-22-2022 NotePatient Outreach (UROLMN) FATOU ARROYO ([id number]) 1960 M Date Time Provider Department 07/06/22 FATOU GAFFNEY During your visit today, we recorded the following information about you: Allergies As of Date: 07/06/2022 (No Known Allergies) Date Reviewed: 07/06/2022 Reviewed by: Franci Fraga Ma - Fully Assessed Visit Diagnosis:Screening for genitourinary condition [Z13.89] Order(s):URINALYSIS, REFLEX MICROSCOPIC [MML4091] Order #: [id number]. #:[id number] Problem List As Of Date 07/06/2022 Noted Resolved Peyronie's disease [N48.6] 07/06/2022 Acquired curvature of penis [N48.89] 07/06/2022 Other male erectile dysfunction [N52.8] 07/06/2022 Encounter Status:Closed by UniServ[facility] on 07/09/22[facility] 07-06-2022 NoteHNO ID: [id number] Author: Fatou Gaffney MD Service: ? Author Type: Physician Type: Progress Notes Filed: 07/06/2022 7:13 PM Note Text: [facility] NEW PATIENT HISTORY AND PHYSICAL EXAM PATIENT INFO: Fatou Arroyo 61 year old REFERRING M.D.: Jude Mei MD [address] [place] [facility] [address] This consult was requested by Dr. Mei for an opinion regarding peyronies disease, and my final recommendations will be communicated to the requesting health care provider by way of the shared medical record for internal providers or letter via the [employer] for external providers. HISTORY Chief [...] ASSESSMENT/PLAN: 1. Peyronie's d (more content not included)...[facility] 06-12-2022 Hospital Discharge instructions Patient Education [...] including vitamins, herbs, eye drops, creams, and amxn-ucw-zneeafl medicines. This also includes: ?Medicines to assist [...] 12/04/2005 Document Revised: 10/14/2018 Document Reviewed: 08/08/2018 [employer] Patient Education 2020 [employer]. 06/12/2022 09:22:32 Calorie Counting for Weight Loss [...] 11/01/2006 Document Revised: 07/21/2019 Document Reviewed: 10/01/2017 [employer] Patient Education 2020 [employer]. Follow Up Care 05/06/2022 10:37:31 With:CALIN WATERS, John Davila, URL Address: When:Within 4 Year(s) Comments:w/PSA F/T [facility] [place] 06-13-2022 Evaluation note* Encounter Date Diagnosis Assessment Notes Treatment Notes Treatment Clinical Notes Apr, Elevated PSA (ICD-10 - R97.20) [facility] Other 06-03-2022 Evaluation note* Encounter Date Diagnosis [...] is going to get them done at [facility]. He is going to send us his work wellness form for completion RTO 1 year preceded by fasting labs (I will use the above lab results to determine what he needs next year) and sooner as needed or pending above. [facility] Other 10-01-2006 History general Narrative - Reported* Type Description Date Medical History Hypercholesterolemia Medical History OA Rt Shoulder (X-Ray) Surgical History Tonsillectomy 1962 Surgical History Bone graphs below teeth Surgical History Vascectomy 08/2006 Surgical History right shoulder surgery 2008 [facility] Other Evaluation + Plan note Future Appointments Appointment Date:09/25/2022 08:00:00 AM Scheduled Provider:John LAYTON MD Location:[facility] Appointment Type:URO Office Visit Diagnostic Tests Pending * PSA Free & Total 06/12/22 [facility] Evaluation + Plan note Future Appointments Appointment Date:09/05/2024 01:00:00 PM Scheduled Provider:John LAYTON MD Location:[facility] Appointment Type:URO Office Visit Diagnostic Tests Pending * PSA Free & Total 05/09/24 [facility] Evaluation note* Diagnosis Screening for genitourinary condition Screening for other and unspecified genitourinary condition documented in this encounter [facility]No assessment information [facility] Work Phone: Evaluation noteNo InformationNortHeritage Valley Health System August Other Hospital course Narrative No data available for this section [facility] Hospital Discharge instructions No data available for this section [facility] Progress note No data available for this section [facility] Reason for referral (narrative) Referred by: John LAYTON MD [facility] Summary Purpose Family History No Family History [...] 1 Elevated PSA (R97.20 ) Referral Organization [facility] Burke Hu Referring Provider First Name Tray Referring Provider Last Name Mulugeta Referring Provider Specialty Family Prac polly Referred Organization [facility] Referred Provider CalinJohn P Referred Address [address] [place],[address] Referred Provider Specialty Urology Referral Priority Routine Additional Source Comments (unrecognized sect ion and content) No Status Records FoundNo Status Records FoundNo Status Records FoundNo Status Records Found INFORMATION SOURCE (unrecogn ized section and content) DATE CREATED AUTHOR 05/01/2022 [facility] DATE CREATED AUTHOR AUTHOR'S ORGANIZ ATION 07/10/[address] [facility] DATE CREATED AUTHOR AUTHOR'S ORGANIZ ATION 08/12/2022 [facility] DATE CREATED AUTHOR AUTHOR'S ORGANIZ ATION 01/04/2025 [facility] REASON FOR VISIT (unrecogniz ed section and content) lab orders1 year Follow up, flu shot never gets LB, did not get labs done [facility], would like to loose weight and is unable to do so [facility], pharmacy [facility], COVID-vaccine, 6 pound weight gain, Colon [...] Sotor , DO Primary Care Provider Active Team Status: Active Member Role Status Dates Tray Sotor , DO Primary Care Provide r, Attending Provider Active Start: April 22, 2024 Team Status: Inactive Member Role Status Dates Tray Sotor , DO Primary Care Provide r, Attending Provider Active Start: April 27, 2024 End: April 27, 2024 Source Comments (unrecognize d section and content) In the event this informatio n is protected by the Federal Confidentiality of Alcohol and Drug Abuse Patient Records regulations: The Federal rules restrict any use of the information to criminally investigate or prosecute any alcohol or drug abuse patient.[facility] Goals (unrecognized section and content) Goals may [...] BE BASED ON THE PRIMARY CLINICAL RECORDS. [facility] [employer] [facility]. provides no warranty or guarantee of the accuracy or completeness of [phone] in [phone] [id number]
[2025-01-14 08:10] LABS: PSA, Free 1.28 ng/mL; Prostate Specific Ag 6.9 ng/mL (0.0-4.0)
== END 2025-01-13 06:32 | disposition home or self-care (01) ==
LOC: LAB 06:32
PROVIDERS: PCP Family Medicine; Visit Provider Urology
DX: R97.20 Elevated prostate specific antigen [PSA] (principal)
CPT/HCPCS: 36415; 84153; 84154

== ENCOUNTER 2025-04-21 06:32 | Outpatient (OUT) | payer OTHER, SELFPAY ==
--- OUTSIDE RECORDS SUMMARY | 2025-04-21 06:37 | XMS_ITS | CCD ---
Author Organization [facility] Care Team Providers Care Wildlife Protector Name Role Phone HUGH, DR CHURCHILL Admitting Unavailable OBERER, DR CHURCHILL Attending Unavailable OBERER, DR CHURCHILL Primary Care Unavailable OBERETracy, DR CHURCHILL Consulting Unavailable OBERER, DR CHURCHILL Admitting Unavailable OBERER, DR CHURCHILL Attending Unavailable OBERER, DR CHURCHILL Primary Care Unavailable OBERER, DR CHURCHILL Consulting Unavailable Tray Reese Unavailable TRAY REESE Primary Care Physician Unavailable Primary Care Provider DO Tray Harman Primary Care Provider [phone] DO Eliezer Tejada Attending Provider Tray Reese Primary Care Unavailable Eliezer Tejada Attending Unavailable Eliezer Tejada Admitting Unavailable Unavailable Primary Care Provider UnavailJohn Eli Attending Unavailable John LAYTON Attending Unavailable John LAYTON Attending Unavailable John LAYTON Attending Unavailable JR. SYDNEE, EVANGELIST Lucero Attending Unavaila eliud RBASHER JR., EVANGELIST Lucero Referring Unavaila eliud BRASHER JR., EVANGELIST Lucero Referring Unavaila eliud BRASHER JR., EVANGELIST Luceor Attending Unavaila ble Allergies Allergy Classification Reported Allergen(s) Allergy Type Date of Onset Reaction(s) Facility (7 sources) Lovastatin; Translations: [lovastatin] Drug Allergy Joint Pain [facility] Repository (6 sources) Pravastatin Drug Allergy ED,Leg weakness Mr. Youth Other (7 sources) Decongestant; Translations: [Decongestant] Drug allergy Insomnia [facility] Repository (1 source) Pravastatin; Translations: [Pravachol] Drug Allergy [facility] Repository Medications Current Medications Medication Drug Class(es) Dates Sig (Normalized) Sig (Original) ascorbic acid 250 mg oral tablet (5 sources) Vitamin C Ascorbic Acid (vitamin C) 250 MG tablet Take 250 mg by mouth Active cholecalciferol 0.125 mg oral tablet (5 sources) Vitamin D Start: 05-09-2024 cholecalciferol (Vitamin D-3) 125 MCG (5000 UT) tablet Take 5,000 Units by mouth 05/09/2024 Active Magnesium (2 sources) Start: 05-09-2024 Magnesium 2 gram IVPB Refills(s) 0 Start Date: 05/09/24 Status: Ordered Multivitamin preparation (2 sources) Start: 05-03-2019 take 1 tablet by mouth once daily Multivitamin Active 1 TAB PO Daily May 03, 2019 12:00am Saw [place] 160-15 MG capsule (5 sources) Start: 05-09-2024 Saw [place] 160-15 MG capsule Take by mouth 05/09/2024 Active Saw palmetto extract (2 sources) Start: 05-09-2024 saw palmetto Oral, Refill(s) 0 Start Date: 05/09/24 Status: Ordered Vitamin D3 (2 sources) Start: 05-09-2024 Vitamin D3 Refills(s) 0 Start Date: 05/09/24 Status: Ordered zinc gluconate 50 mg oral tablet (5 sources) zinc gluconate 5 0 MG tablet Take 50 mg by mouth Active Completed/Discontinued Medications Medication Drug Class(es) Dates Sig [...] hours., # 30 tab(s), Refills(s) 0, Pharmacy: [id number], 176, cm, 05/09/24 15:40:00 EDT, Height/Length Dosing, 96.5, kg, 05/09/24 15:40:00 EDT, Weight Dosing Start Date: 05/09/24 Status: Ordered Triamcinolone (12 sources) Corticosteroid Start: 08-21-2020 Kenalog -40 mg 07 Aug, 2020 40 mg Start: 03-23-2017 Kenalog -40 mg [...] lower urinary tract symptoms] Onset: 05-09-2024 Chronic Joint disorders and dislocations; trauma-related (4 sources) Acute tear of lateral meniscus of left knee; Translations: [Other tear of lateral meniscus, current injury, left knee, initial encounter] 02-21-2025 Episodic Osteoarthritis (16 sources) Osteoarthritis of knee; Translations: [...] (4 sources) Shoulder pain 01-26-2014 Episodic Other non-traumatic joint disorders (4 sources) Pain in left knee; Translations: [Pain in joint, lower leg] 01-17-2025 Episodic Other nutritional; endocrine; and metabolic disorders [...] abdominal swelling, mass and lump] Onset: 07-16-2022 Unclassified (2 sources) Left knee pain, unspecified chronicity 01-22-2025 Results Test Name Value Interpretation Reference Range Facility Ambulatory Visit Summaryon 0 02-13-2025 Ambulatory Visit Summary Ambulatory Visit Summary FATOU ARROYO :1960 Visit Date:02/13/2025 Ambulatory Visit Instructions Your Diagnosis Elevated PSA ED (erectile dysfunction) Peyronie's disease BPH (benign prostatic hyperplasia) Your Care Team Attending Physician - CALIN WATERS, John Davila Primary Care Physician - TRAY REESE DO This Is Your Medications List Contact prescribing physician if questions or concerns cholecalciferol (Vitamin D3) magnesium sulfate (Magnesium 2 gram IVPB) saw palmetto sildenafil (sildenafil 20 mg oral tablet) Procedures Performed Extraction of wisdom tooth, History of tonsillectomy. Discharge Vitals Temperature (Temporal Artery) 36.8 ???C Heart Rate (Peripheral) 68 Blood Pressure 142/78 Height 69 in Height 176 cm Weight 226.855 lb Weight 102.9 kg BMI 33.22 What to do next Scheduled Follow-Up Appointments Wednesday 3:30 PM EDT With: John LAYTON MD Where: [facility] [address], [address] [place] [address]- You Need to Schedule the Following Appointments Follow Up with John LAYTON MD, URL When: Where: [address] [facility] [address] [place] [address]- Medications What How Much When Why Instructions Unchanged cholecalciferol (Vitamin D3) Contact prescribing physician if questions or concerns Unchanged magnesium sulfate (Magnesium 2 gram IVPB) Contact prescribing physician if questions or concerns Unchanged saw palmetto By Mouth Contact prescribing physician if questions or concerns Unchanged sildenafil (sildenafil 20 mg oral tablet) 1 Tablets By Mouth As Directed Peyronie's disease Take 1-5 tabs one hour prior to sexual activity. Do not exceed 100mg in 24 hours. Contact prescribing physician if questions or concerns Allergies No Known Allergies Problems Ongoing - Any problem that you are currently receiving treatment for. BMI 34.0-34.9,adult BPH (benign prostatic hyperplasia) ED (erectile dysfunction) Elevated PSA Injury of penile urethra Peyronie's disease Historical - Any problem that you are no longer receiving treatment for. Hypercholesterolemia Shoulder impingement syndrome Shoulder pain Patient Survey You may receive a survey via text or e-mail asking about your office visit. Please share your experience with us by completing your survey. We appreciate your feedback and thank you for choosing us for your care. Education Materials Prostate Cancer Screening Prostate cancer screening is [...] recommendations. In general, screening is recommended if: ??? You are age 50 to 70 and [...] have a 10- to 15-year life expectancy. ??? You are younger than age 50, and [...] In general, screening is not recommended if: ??? You are younger than age 40. ??? You are between the ages of 40 and 49 and you have no risk factors. ??? You are 70 years of age or [...] high PSA levels may be caused by: ??? Prostate cancer. ??? An enlarged prostate that is not caused by cancer (benign prostatic hyperplasia, or BPH). This condition is very common in older men. ??? A prostate gland infection (prostatitis) or urinary tract infection. ??? C (more content not included)... Normal [facility] Urology Office/Clinic Noteon 02-13-2025 Urology Office/Clinic Note Urology Office/Clinic Note Chief Complaint F/U w/PSA HPI Staff Follow up w/PSA Previous DX: BPH, ED, Elevated PSA, Peyronie's disease Previous PSA 04/22/24 - 5.62 Current PSA 6.9 & 18.6% 01/13/25 Pt denies any urinary complaints today. History of Present Illness Tests reviewed: UA, PSA I have reviewed the previous health record information and history for this patient from Dr. Layton. I have reviewed and verified the staff [...] See HPI. Physical Exam Vitals & Measurements T: 36.8 ???C(Temporal Artery) HR: 68(Peripheral) BP: 142/78 HT: 176 cm HT: 69 in WT: 102.9 kg WT: 226.855 lb BMI: 33.22 General Appearance: alert, no distress, well nourished, well developed male. Assessment/Plan 1. Elevated PSA (R97.20: Elevated prostate specific antigen [PSA]) PSA: 04/25/22 - 4.6 & 17.4% 04/17/23 - 4.7 & 18.5% 10/16/23 - 5.7 & 14.4% 04/22/24 - 5.62 01/13/25 - 6.90 & 18.6% GINO 06/12/22: ~45g, benign PSA increased and is the highest level in our records. Discussed management options including closer PSA monitoring vs prostate MRI which could lead to fusion bx if lesion was found. Prostate MRI is recommended. May proceed with prostate bx regardless given prostate MRIs can miss prostate cancer in 12-16% of patients. R/Bs of options discussed. Pt will think about a prostate MRI. Follow up 3-4 mos with PSA F&T or sooner if needed. Pt understands and agrees with plan. -Pt to call w/in a week if he would like to proceed with prostate MRI which he understands could lead to a fusion bx if a + lesion was found 2. ED (erectile dysfunction) (N52.9: Male erectile dysfunction, unspecified) Had an injury during intercourse years ago. Was referred to [facility] at prior OV in 2021. Saw [address] Gaffney 07/06/22 who recommended Sildenafil 100mg prn and Xiaflex. [1] Pt was to try Sildenafil 20 mg prn at prior OV. He has not yet tried it. 3. Peyronie's disease (N48.6: Induration penis plastica) See #2. 4. BPH (benign prostatic hyperplasia) (N40.0: Benign prostatic hyperplasia without lower urinary tract symptoms) UA neg. IPSS 2 (2). No BPH takes. On saw palmetto. Urination stable. No issues. No S/S of infection that would influence PSA. -Cont sx monitoring Overall the patient understands that his PSA level has increased from 5.6-6.9 with an overall uptrend over the past 3 years or so. Is my recommendation that we have him get an MRI of the prostate which could lead to a fusion biopsy. At this point he still wants to think about this. We will tentatively set him up for a follow-up in 3 months or so with a repeat free and total PSA. I let her know I would like him to decide on the MRI decision and let me know within [address]. He understands all this and agrees with the plan. Follow-up With When Contact Information CALIN WATERS, John Davila, URL [email or web address] [place] [address]- Additional Instructions: 3-4 mos with PSA F&T Patient Education Prostate Cancer Screening I, Aviva Cleveland, personally scribed for Dr. Layton on 02/13/2025 15:49:12. . Portions of this record may have been created with voice recognition artificial intelligence software, specifically [employer], [employer] and or [employer]. Substitutions may have occurred due to the inherent limitations of voice recognition and artificial intelligence software. Problem List/Past Medical History Ongoing BMI 34.0-34.9,adult BPH (benign prostatic hyperplasia) ED (erectile dysfunction) Elevated PSA Injury of penile urethra Peyronie's disease Historical Hypercholesterolemia Shoulder impingement syndrome Shoulder pain Procedure/Surgical History Extraction of wisdom tooth, History of tonsillectomy. Medications Magnesium 2 gram IVPB, Not taking saw palmetto, Oral, Not taking sildenafil 20 mg oral tablet, 20 mg= 1 tab(s), Oral, As Directed, Not taking Vitamin D3, Not taking Allergies No Known Allergies Social History Alcohol - Denies Alcohol Use, 12/12/2010 Substance Abuse - Denies Substance Abuse, 12/12/2010 Tobacco - Denies Tobacco Use, 12/12/2010 Never (less than 100 in lifetime) Tobacco Use:. Never Smokeless Tobacco Use:., 02/13/2025 Family History Family history is unknown Immunizations Vaccine Date Status Comments SARS-CoV-2 (more content not included)... Normal [facility] Comment on above: Result Comment: Elec tronically Signed By: John LAYTON MD P\.br\Date and Time Signed: 02/13/25 16:00 EDT\.br\Electronically Co-Signed By: Aviva Cleveland P\.br\Date and Time Co-Signed: 02/13/25 15:49 EDT MR KNEE LEFT WO IV CONTRASTo n 02-01-2025 MR KNEE LEFT WO IV CONTRAST Exam: MR KNEE LEFT WO IV CONTRAST History: Knee pain. History of lateral meniscus tear. Technique: Multiplanar multisequence MRI of the knee was performed without contrast. Comparison: Radiographs January 17, 2025 Findings: Quadriceps and patellar tendons are intact. Small joint effusion. Anterior and posterior cruciate ligaments are intact. The medial collateral ligament, lateral collateral ligament, and popliteus are intact. Complex tear of the body through posterior horn of the medial meniscus. Horizontal tear of the posterior horn of the lateral meniscus. Tiny foci of subcortical bone marrow edema of the median patellar ridge secondary to full-thickness cartilage fissures. Popliteal fossa structures are intact. 2 cm Greenfield's cyst with rupture superiorly and inferiorly. IMPRESSION: Complex tear of the body through posterior horn of the medial meniscus. Horizontal tear of the posterior horn of the lateral meniscus. ELECTRONICALLY SIGNED BY: Jude Evans, DO Normal Not Available Comment on above: Order Comment: Evalu ate Left Knee for Medial Meniscus Tear Provider Letteron 01-19-2025 Provider Letter Provider Letter January 19, 2025 [address] [place] [place] [address] : 1960 Dear Fatou Arroyo, We have been trying to reach you with no success. It is important that you return our call regarding your results and appointment, upon receiving this letter. Also, at the time of your call, please provide us with your current information. Thank you for your prompt attention to this matter. Sincerely, [facility] [address], [place], [place] [address] Normal [facility] XR Knee - left 1 or 2 Viewso n 01-17-2025 Imaging Result: X-rays standing AP and lateral show normal alignment to the knee there was no gross evidence of joint space narrowing, no evidence of flattening of the articular surfaces or marginal osteophytes. There was no evidence of fracture or dislocation. Bony structures in the visual field appeared to be well ossified. Impression: No acute bony process, left knee [facility] Radiology Study observation (narrative) [facility] Patient Letter FTon 2024 Patient Letter [facility] Patient Letter [facility] [address] [place] [address] AVE [address] [address] December 26, 2024 FATOU [place]YO [address] [place] [address] : 1960 Dear Mr. Arroyo, I am [...] [facility] CALIN WATERS, John Davila [facility] Provider Letteron 10-03-2024 Provider Letter Provider Letter October 03, 2024 FATOU [place]O [address] [place] [address] : 1960 Dear Mr. Arroyo, We have [...] appointment rescheduled at your earliest convenience. Call [phone] option 2. Thank you for your prompt attention to this matter. Sincerely, [facility] Screenson 05-10-2024 Screens [id number]# 1.00TIFF [facility] Patient Educationon 05-09-20 Patient Education Oncology Prostate [...] Where to find more information ? The [employer]: www.cancer.org ? [employer]: www.auanet.org Contact a health care [...] adds flu (more content not included)... Normal [facility] Lab Reportson 04-27-2024 Lab Reports [id number]#1. 00TIFF Normal [facility] Basophils Auto (Bld) [#/Vol] on 04-22-2024 Basophils (Bld) [#/Vol] 0.1 10 3/uL 0.0-0.1 [facility] Basophils/100 WBC Auto (Bld) on 04-22-2024 Basophils/100 WBC (Bld) 0.8 % 0.2-2.0 [facility] Cholesterol in LDL Calc [Mas s/Vol]on 04-22-2024 Cholesterol in LDL [Mass/Vol] 139.4 mg/dL [facility] Comment on above: <100 mg/dl [id number] 0-129 mg/dl NEAR OR ABOVE [id number] mg/dl BORDERLINE NRSG419-344 mg/dl HIGH>190 mg/dl VERY HIGH Cholesterol in VLDL Calc [Ma ss/Vol]on 04-22-2024 Cholesterol in VLDL [Mass/Vol] 8.6 mg/dL [facility] Eosinophils/100 WBC Auto (Bl d)on 04-22-2024 Eosinophils/100 WBC (Bld) 7.4 % 0.9-7.0 [facility] Erythrocyte distribution wid th Auto (RBC) [Ratio]on 04-22-2024 Erythrocyte distribution width (RBC) [Ratio] 12.9 % 11.0-15.0 [facility] Estimated glomerular filtrat ion rate (GFR) non- Americanon 04-22-2024 GFR/1.73 sq M.predicted among non-blacks MDRD (S/P/Bld) [Vol rate/Area] mL/min/{1.73_m2} >=60 [facility] Globulin Calc (S) [Mass/Vol] on 04-22-2024 Globulin (S) [Mass/Vol] 3.1 g/dL [facility] Hematocrit Auto (Bld) [Volum e fraction]on 04-22-2024 Hematocrit (Bld) [Volume fraction] 42.0 % 42.0-54.0 [facility] Hemoglobin [Mass/volume] in Bloodon 04-22-2024 Hemoglobin (Bld) [Mass/Vol] 14.4 g/dL 14.0-18.0 [facility] Laboratory - Chemistry and C hemistry - challengeon 04-22-2024 Albumin [Mass/Vol] 3.5 g/dL 3.4-5.0 [facility] ALP [Catalytic activity/Vol] 53 U/L 46-116 [facility] ALT [Catalytic activity/Vol] 23 U/L 16-63 [facility] AST [Catalytic activity/Vol] 19 U/L 15-37 [facility] Bilirubin [Mass/Vol] 0.5 mg/dL 0.2-1.[address] [facility] Bilirubin.direct [Mass/Vol] 0.1 mg/dL 0.0-0.2 [facility] Calcium [Mass/Vol] 8.6 mg/dL 8.5-10.1 [facility] Chloride [Moles/Vol] 107 mmol/L 98-[address] [facility] Cholesterol [Mass/Vol] 196 mg/dL <=200 [facility] Cholesterol in HDL [Mass/Vol] 48 mg/dL 40-60 [facility] Comment on above: > or =60 mg/dl - LOW CARDIOVASCULAR RISK<40 mg/dl - HIGH CARDIOVASCULAR RISK CO2 [Moles/Vol] 27.0 mmol/L 21.0-32.0 [facility] Creatinine [Mass/Vol] 1.18 mg/dL 0.70-1.30 [facility] GFR/1.73 sq M.predicted MDRD (S/P/Bld) [Vol rate/Area] mL/min/{1.73_m2} >=60 [facility] Glucose [Mass/Vol] 88 mg/dL 74-106 [facility] Potassium [Moles/Vol] 4.0 mmol/L 3.5-5.1 [facility] Protein [Mass/Vol] 6.6 g/dL 6.4-8.2 [facility] Sodium [Moles/Vol] 142 mmol/L 136-145 [facility] Triglyceride [Mass/Vol] 43 mg/dL <=150 [facility] Urea nitrogen [Mass/Vol] 18.0 mg/dL 7.0-18.0 [facility] Urea nitrogen/Creatinine [Mass ratio] 15.3 mg/mg [facility] Laboratory - Hematology and Cell countson 04-22-2024 Immature granulocytes/100 WBC (Bld) 0.2 % 0.0-0.5 [facility] Leukocytes [#/volume] correc oj for nucleated erythrocytes in Blood by Automated counon 04-22-2024 WBC corrected for nucl RBC Auto (Bld) [#/Vol] 6.3 10 3/uL 4.0-11.0 [facility] Lymphocytes Auto (Bld) [#/Vo l]on 04-22-2024 Lymphocytes (Bld) [#/Vol] 2.0 10 3/uL 1.2-3.8 [facility] Lymphocytes/100 WBC Auto (Bl d)on 04-22-2024 Lymphocytes/100 WBC (Bld) 31.5 % 20.5-60.0 [facility] MCH Auto (RBC) [Entitic mass ]on 04-22-2024 MCH (RBC) [Entitic mass] 31.0 pg 25.9-34.0 [facility] MCHC Auto (RBC) [Mass/Vol]on 04-22-2024 MCHC (RBC) [Mass/Vol] 34.3 g/dL 29.9-35.2 [facility] MCV Auto (RBC) [Entitic vol] on 04-22-2024 MCV (RBC) [Entitic vol] 90.5 fL 80.0-94.0 [facility] Monocytes Auto (Bld) [#/Vol] on 04-22-2024 Monocytes (Bld) [#/Vol] 0.6 10 3/uL 0.3-0.8 [facility] Monocytes/100 WBC Auto (Bld) on 04-22-2024 Monocytes/100 WBC (Bld) 9.7 % 1.7-12.0 [facility] Neutrophils Auto (Bld) [#/Vo l]on 04-22-2024 Neutrophils (Bld) [#/Vol] 3.2 10 3/uL 1.4-6.5 [facility] Neutrophils/100 WBC Auto (Bl d)on 04-22-2024 Neutrophils/100 WBC (Bld) 50.4 % 43.0-75.0 [facility] No Panel Informationon 04-22 Eosinophils # (Auto) 0.5 10 3/uL 0.0-0.7 [facility] Immature Granulocyte # (Auto) 0.01 10 3/uL 0.00-0.03 [facility] Prostate Specific Antigen Screen 5.62 ng/mL <=4.00 [facility] Platelet mean volume Auto (B ld) [Entitic vol]on 04-22-2024 Platelet mean volume (Bld) [Entitic vol] 9.9 fL 9.5-13.5 [facility] Platelets Auto (Bld) [#/Vol] on 04-22-2024 Platelets (Bld) [#/Vol] 202 10 3/uL 150-450 [facility] RBC Auto (Bld) [#/Vol]on RBC (Bld) [#/Vol] 4.64 10 6/uL 4.70-6.10 [facility] Serum or plasma albumin/glob ulin mass ratioon 04-22-2024 Albumin/Globulin [Mass ratio] 1.1 {ratio} [facility] Serum or plasma anion gap de terminationon 04-22-2024 Anion gap [Moles/Vol] 12.0 mmol/L [facility] Serum or plasma total choles terol/high density lipoprotein (HDL) cholesterol mass chrissy 04-22-2024 Cholesterol.total/Ch olesterol in HDL [Mass ratio] 4.1 {ratio} [facility] Comment on above: 3.3 - 4.4 LOW RISK4. 4 - 7.1 AVERAGE RISK7.1 - 11.0 MODERATE RISK>11.0 HIGH RISK Sandeep 07-16-2022 L - -------- Specimen: [id number] Received: 07/16/22 Status: MAKI Holt Num: [id number] Spec Type: Surgical Subm Dr: Eliezer Tejada DO Tissues: A Soft Tissue/Surgical Margin-Other than Tumor,Mass,Lip or Katerine (LT LOWER ABDOM Procedures: HE Stain, Gross/Micro L4 -------- Age/ Patient Sex Location Account Attending Physician -------- Fatou Arroyo JR/Jesus BOWDEN [id number] Eliezer Tejada DO -------- SPEC NUM: [id number] RECD: 07/16/22 STATUS: MAKI HOLT NUM: [id number] ANGEL: 07/16/[address]: Eliezer Tejada DO ENTERED: 07/16/[address] [facility] DR: Dante [facility] [place] SPEC TYPE: Surgical DEPT: S ORDERED: HE [...] the cut surface is homogeneous, yellow-ac, lobular.. Tree Trimming Supervisor sections are submitted in one cassette labeled A1. Microscopic Description One glass slide with H E stained material has been examined. The pathologist's interpretation is performed at [facility]. The microscopic findings support the above pathologic diagnosis. -------- Specimen: [id number] Received: 07/16/22 Status: MAKI Yanet Num: [id number] Spec Type: Surgical Subm Dr: Eliezer Tejada DO Tissues: A Soft Tissue/Surgical Margin-Other than Tumor,Mass,Lip or Katerine (LT LOWER ABDOM Procedures: HE Stain, Gross/Micro L4 -------- Patient: Dominic,Fatoumike Dennis JR [id number] (Continued) -------- Specimen: [id number] Received: 07/16/22 (Continued) Signed (signature on file) Artie Flor MD 07/19/22 2318 -------- Specimen: [id number] Received: 07/16/22 Status: MAKI Holt Num: [id number] Spec Type: Surgical Subm Dr: Eliezer Tejada DO Tissues: A Soft Tissue/Surgical Margin-Other than Tumor,Mass,Lip or Katerine (LT LOWER ABDOM Procedures: HE Stain, Gross/Micro L4 -------- Patient: Fatou Arroyo JR [id number] (Continued) -------- Specimen: [id number] Received: 07/16/22 (Continued) CPT Codes 95101 -------- -------- Specimen: [id number] Received: 07/16/22 Status: MAKI Yanet Num: [id number] Spec Type: Surgical Subm Dr: Eliezer Tejada DO Tissues: A Soft Tissue/Surgical Margin-Other than Tumor,Mass,Lip or Katerine (LT LOWER ABDOM Procedures: HE Stain, Gross/Micro L4 -------- Patient: Fatou Arroyo JR [id number] (Continued) -------- Signed (signature on file) Artie Flor MD 07/19/22 2318 [facility] CNOVon 07-06-2022 CNOV Office Visit (UROLMN ) FATOU ARROYO ([id number]) 1960 M Date Time Provider Department 07/06/22 10:00 AM FATOU GAFFNEY [facility]RO[facility] During your visit today, we recorded the following information about you: Pulse Blood pressure Weight Height 49/minute 165/90 104.3 kg 1.753 m Fatou Gaffney MD 07/06/2022 7:13 PM Signed [facility] NEW PATIENT HISTORY AND PHYSICAL EXAM PATIENT INFO: Fatou Arroyo 61 year old REFERRING M.D.: Jude Mei MD [address] [facility] [address] This consult was requested by Dr. Mei for an opinion regarding peyronies disease, and my final recommendations will be communicated to the requesting health care provider by way of the shared medical record for internal providers or letter via the [address] [employer] for external providers. HISTORY Chief [...] predated onset (more content not included)... Normal [facility] PSA, FREE AND TOTAL RATIOon 04-29-2022 % Free PSA 17.4 % Normal [facility] Comment on above: Result Comment: The table [...] men. Performed By: #### P SAFREE #### [facility] [address] [place] [address] Dr. Shelby Travis Prostate specific Ag [Mass/Vol] 4.6 ng/mL Critically high 0.0-4.0 [facility] Comment on above: Result Comment: Gabino MUNIZIA methodology. . According to the [employer], Serum PSA should decrease and [...] disease. Performed By: #### P SAFREE #### [facility] [address] [place] [address] Dr. Shelby Travis PSA, Free 0.80 ng/mL Normal N/A [facility] Comment on above: Result Comment: Gabino PEREZ methodology. Performed By: #### P SAFREE #### [facility] [address] [place] [address] Dr. Shelby Travis CBC AUTO DIFFon 04-25-2022 BASO # 0.0 103/ul Normal 0.0-0.1 [facility] Comment on above: Performed By: #### C BC #### [facility] [address] [place] [address] Dr. Shelby Travis Basophils/100 WBC (Bld) 0.3 % Normal 0.2-2.0 [facility] Comment on above: Performed By: #### C BC #### [facility] [address] [place] [address] Dr. Shelby Travis EO # 0.1 103/ul Normal 0.0-0.7 [facility] Comment on above: Performed By: #### C BC #### [facility] [address] [place] [address] Dr. Shelby Travis Eosinophils/100 WBC (Bld) 1.4 % Normal 0.9-7.0 [facility] Comment on above: Performed By: #### C BC #### [facility] [address] [place] [address] Dr. Shelby Travis Erythrocyte distribution width (RBC) [Ratio] 12.9 % Normal 11.0-15.0 [facility] Comment on above: Performed By: #### C BC #### [facility] [address] [place] [address] Dr. Shelby Travis Hematocrit (Bld) [Volume fraction] 44.5 % Normal 42.0-54.0 [facility] Comment on above: Performed By: #### C BC #### [facility] [address] [place] [address] Dr. Shelby Travis Hemoglobin (Bld) [Mass/Vol] 15.3 g/dL Normal 14.0-18.0 [facility] Comment on above: Performed By: #### C BC #### [facility] [address] [place] [address] Dr. Shelby Travis IG # 0.01 10e3/ul Normal 0.00-0.03 [facility] Comment on above: Performed By: #### C BC #### [facility] [address] [place] [address] Dr. Shelby Travis IG % 0.2 % Normal 0.0-0.5 [facility] Comment on above: Performed By: #### C BC #### [facility] [address] [place] [address] Dr. Shelby Travis LYMPH # 1.5 103/ul Normal 1.2-3.8 [facility] Comment on above: Performed By: #### C BC #### [facility] [address] [place] [address] Dr. Shelby Travis Lymphocytes/100 WBC (Bld) 25.5 % Normal 20.5-60.0 [facility] Comment on above: Performed By: #### C BC #### [facility] [address] [place] [address] Dr. Shelby Travis MANUAL DIFF REQ NO Normal [facility] Comment on above: Performed By: #### C BC #### [facility] [address] [place] [address] Dr. Shelby Travis MCH (RBC) [Entitic mass] 30.8 pg Normal 25.9-34.0 [facility] Comment on above: Performed By: #### C BC #### [facility] [address] [place] [address] Dr. Shelby Travis MCHC (RBC) [Mass/Vol] 34.4 g/dL Normal 29.9-35.2 [facility] Comment on above: Performed By: #### C BC #### [facility] [address] [place] [address] Dr. Shelby Travis MCV (RBC) [Entitic vol] 89.5 fL Normal 80.0-94.0 [facility] Comment on above: Performed By: #### C BC #### [facility] [address] [place] [address] Dr. Shelby Travis MONO # 0.9 103/ul Critically high 0.3-0.8 [facility] Comment on above: Performed By: #### C BC #### [facility] [address] [place] [address] Dr. Shelby Travis Monocytes/100 WBC (Bld) 14.5 % Critically high 1.7-12.0 [facility] Comment on above: Performed By: #### C BC #### [facility] [address] [place] [address] Dr. Shelby Travis NEUT # 3.4 103/ul Normal 1.4-6.5 [facility] Comment on above: Performed By: #### C BC #### [facility] [address] [place] [address] Dr. Shelby Travis Neutrophils/100 WBC (Bld) 58.1 % Normal 43.0-75.0 [facility] Comment on above: Performed By: #### C BC #### [facility] [address] [address] [address] Shelby Travis Platelet mean volume (Bld) [Entitic vol] 9.6 fL Normal 9.5-13.5 [facility] Comment on above: Performed By: #### C BC #### [facility] [address] [address] [address] Shelby Travis PLT 184 103/ul Normal 150-450 [facility] Comment on above: Performed By: #### C BC #### [facility] [address] [address] [address] Shelby Travis RBC 4.97 106/ul Normal 4.70-6.10 [facility] Comment on above: Performed By: #### C BC #### [facility] [address] [place] [address] Dr. Shelby Travis WBC 5.9 103/ul Normal 4.0-11.0 [facility] Comment on above: Performed By: #### C BC #### [facility] [address] [place] [address] Dr. Shelby Travis LIPID PROFILEon 04-25-2022 CHOL-HDL RATIO NORM SEE BELOW Normal [facility] Comment on above: Result Comment: 3.3 - 4.4 LOW RISK 4.4 - 7.1 AVERAGE RISK 7.1 - 11.0 MODERATE RISK >11.0 HIGH RISK Performed By: #### L IPID, BMP, LIVER #### [facility] [address] [place] [address] Dr. Shelby Travis Cholesterol [Mass/Vol] 192 mg/dL Normal <=200 [facility] Comment on above: Performed By: #### L IPID, BMP, LIVER #### [facility] [address] [place] [address] Dr. Shelby Travis Cholesterol in HDL [Mass/Vol] 40 mg/dL Normal 40-60 [facility] Comment on above: Performed By: #### L IPID, BMP, LIVER #### [facility] [address] [place] [address] Dr. Shelby Travis Cholesterol in LDL [Mass/Vol] 138.2 mg/dL Normal [facility] Comment on above: Performed By: #### L IPID, BMP, LIVER #### [facility] [address] [address] [address] Shelby Travis Cholesterol.total/Ch olesterol in HDL [Mass ratio] 4.8 {ratio} Normal [facility] Comment on above: Performed By: #### L IPID, BMP, LIVER #### [facility] [address] [place] [address] Dr. Shelby Travis HDL NORMAL > or = 60 mg/dl - LO W CARDIOVASCULAR RISK <40 mg/dl - HIGH CARDIOVASCULAR RISK Normal [facility] Comment on above: Performed By: #### L IPID, BMP, LIVER #### [facility] [address] [place] [address] Dr. Shelby Travis LDL CALC NORMAL SEE BELOW Normal [facility] Comment on above: Result Comment: <100 mg/dl OPTIMAL 100 - 129 mg/dl NEAR OR ABOVE OPTIMAL 130 - 159 mg/dl BORDERLINE HIGH 160 - 189 mg/dl HIGH >190 mg/dl VERY HIGH Performed By: #### L IPID, BMP, LIVER #### [facility] [address] [place] [address] Dr. Shelby Travis Triglyceride [Mass/Vol] 69 mg/dL Normal <=150 [facility] Comment on above: Performed By: #### L IPID, BMP, LIVER #### [facility] [address] [place] [address] Dr. Shelby Travis VLDL CALC 13.8 mg/dL Normal [facility] Comment on above: Performed By: #### L IPID, BMP, LIVER #### [facility] [address] [address] [address] Shelby Travis LIVER PROFILEon 04-25-2022 Albumin [Mass/Vol] 3.7 g/dL Normal 3.4-5.0 [facility] Comment on above: Performed By: #### L IPID, BMP, LIVER #### [facility] [address] [place] [address] Dr. Shelby Travis Albumin/Globulin [Mass ratio] 1.1 {ratio} Normal [facility] Comment on above: Performed By: #### L IPID, BMP, LIVER #### [facility] [address] [place] [address] Dr. Shelby Travis ALP [Catalytic activity/Vol] 52 U/L Normal 46-116 [facility] Comment on above: Performed By: #### L IPID, BMP, LIVER #### [facility] [address] [place] [address] Dr. Shelby Travis ALT [Catalytic activity/Vol] 32 U/L Normal 16-63 [facility] Comment on above: Performed By: #### L IPID, BMP, LIVER #### [facility] [address] [place] [address] Dr. Shelby Travis AST [Catalytic activity/Vol] 20 U/L Normal 15-37 [facility] Comment on above: Performed By: #### L IPID, BMP, LIVER #### [facility] [address] [place] [address] Dr. Shelby Travis BILI, CONJUGATED 0.1 mg/dL Normal 0.0-0.2 [facility] Comment on above: Performed By: #### L IPID, BMP, LIVER #### [facility] [address] [place] [address] Dr. Shelby Travis Bilirubin [Mass/Vol] 0.6 mg/dL Normal 0.2-1.0 [facility] Comment on above: Performed By: #### L IPID, BMP, LIVER #### [facility] [address] [place] [address] Dr. Shelby Travis Globulin (S) [Mass/Vol] 3.3 g/dL Normal [facility] Comment on above: Performed By: #### L IPID, BMP, LIVER #### [facility] [address] [place] [address] Dr. Shelby Travis Protein [Mass/Vol] 7.0 g/dL Normal 6.4-8.2 [facility] Comment on above: Performed By: #### L IPID, BMP, LIVER #### [facility] [address] [place] [address] Dr. Shelby Travis PROF CHEM 8 (BAS METB)on Anion gap [Moles/Vol] 12.6 mmol/L Normal [facility] Comment on above: Performed By: #### L IPID, BMP, LIVER #### [facility] [address] [place] [address] Dr. Shelby Travis Calcium [Mass/Vol] 8.4 mg/dL Critically low 8.5-10.1 [facility] Comment on above: Performed By: #### L IPID, BMP, LIVER #### [facility] [address] [place] [address] Dr. Shelby Travis Chloride [Moles/Vol] 105 mmol/L Normal 98-107 [facility] Comment on above: Performed By: #### L IPID, BMP, LIVER #### [facility] [address] [place] [address] Dr. Shelby Travis CO2 [Moles/Vol] 25.6 mmol/L Normal 21.0-32.0 [facility] Comment on above: Performed By: #### L IPID, BMP, LIVER #### [facility] [address] [place] [address] Dr. Shelby Travis Creatinine [Mass/Vol] 1.29 mg/dL Normal 0.70-1.30 [facility] Comment on above: Performed By: #### L IPID, BMP, LIVER #### [facility] [address] [place] [address] Dr. Shelby Travis EGFR-AF MACEDONIAN >60 Normal >=60 [facility] Comment on above: Performed By: #### L IPID, BMP, LIVER #### [facility] [address] [place] [address] Dr. Shelby Travis EGFR-NON AF MACEDONIAN 57 mL/min/1.73m2 Critically low >=60 [facility] Comment on above: Performed By: #### L IPID, BMP, LIVER #### [facility] [address] [place] [address] Dr. Shelby Travis Glucose [Mass/Vol] 93 mg/dL Normal 74-106 [facility] Comment on above: Performed By: #### L IPID, BMP, LIVER #### [facility] [address] [place] [address] Dr. Shelby Travis Potassium [Moles/Vol] 4.2 mmol/L Normal 3.5-5.1 [facility] Comment on above: Performed By: #### L IPID, BMP, LIVER #### [facility] [address] [place] [address] Dr. Shelby Travis Sodium [Moles/Vol] 139 mmol/L Normal 136-145 [facility] Comment on above: Performed By: #### L IPID, BMP, LIVER #### [facility] [address] [place] [address] Dr. Shelby Travis Urea nitrogen [Mass/Vol] 18.0 mg/dL Normal 7.0-18.0 [facility] Comment on above: Performed By: #### L IPID, BMP, LIVER #### [facility] [address] [place] [address] Dr. Shelby Travis Urea nitrogen/Creatinine [Mass ratio] 14.0 mg/mg Normal [facility] Comment on above: Performed By: #### L IPID, BMP, LIVER #### [facility] [address] [place] [address] Dr. Shelby Travis Vital Signs Date Time Vital Sign Value Performing Clinician Facility 05-09-2024 15:34-0400 Blood Pressure Location John LAYTON [facility] 05-09-2024 15:34-0400 Diastolic blood pressure 88 mm[Hg] John LAYTON [facility] 05-09-2024 15:34-0400 Respiratory rate 16 /min John LAYTON [facility] 05-09-2024 15:34-0400 Systolic blood pressure 126 mm[Hg] John LAYTON [facility] 04-27-2024 15:32-0400 Body height 175.26 cm [facility] 04-27-2024 15:32-0400 Body mass index (BMI) [Ratio] 30.1 kg/m2 [facility] 04-27-2024 15:32-0400 Body temperature 97.8 [degF] [facility] 04-27-2024 15:32-0400 Body weight 92.58 kg [facility] 04-27-2024 15:32-0400 Diastolic blood pressure 63 mm[Hg] [facility] 04-27-2024 15:32-0400 Heart rate 53 /min [facility] 04-27-2024 15:32-0400 Respiratory rate 16 /min [facility] 04-27-2024 15:32-0400 SaO2% (BldA) [Mass fraction] 97 % [facility] 04-27-2024 15:32-0400 Systolic blood pressure 130 mm[Hg] [facility] 04-26-2023 15:15-0400 Body height 175.26 cm Tray Oberer Other [facility] [employer] Other 04-26-2023 15:15-0400 Body mass index (BMI) [Ratio] 33.05 kg/m2 Tray Oberer Other [facility] Other 04-26-2023 15:15-0400 Body temperature 97.8 [degF] Tray Oberer Other [facility] Other 04-26-2023 15:15-0400 Body weight 101.52 kg Tray Oberer Other [facility] Other 04-26-2023 15:15-0400 Diastolic blood pressure 73 mm[Hg] Tray Oberer Other [facility] Other 04-26-2023 15:15-0400 Respiratory rate 16 /min Tray Oberer Other [facility] Other 04-26-2023 15:15-0400 SaO2% (BldA) [Mass fraction] 99 % Tray Oberer Other [facility] Other 04-26-2023 15:15-0400 Systolic blood pressure 128 mm[Hg] Tray Oberer Other [facility] Other 04-17-2022 17:00-0400 Body height 175.26 cm Tray Oberer Other [facility] Other 04-17-2022 17:00-0400 Body mass index (BMI) [Ratio] 35.16 kg/m2 Tray Oberer Other [facility] Other 04-17-2022 17:00-0400 Body temperature 98.4 [degF] Tray Oberer Other [facility] Other 04-17-2022 17:00-0400 Body weight 108 kg Tray Oberer Other [facility] Other 04-17-2022 17:00-0400 Diastolic blood pressure 72 mm[Hg] Tray Oberer Other [facility] Other 04-17-2022 17:00-0400 Respiratory rate 16 /min Tray Oberer Other [facility] Other 04-17-2022 17:00-0400 SaO2% (BldA) [Mass fraction] 96 % Tray Oberer Other [facility] Other 06-03-2022 17:00-0400 Systolic blood pressure 138 mm[Hg] Tray Reese Other [facility] [employer] Other Encounters Encounter Date Encounter Type Care Provider Facility Start: 02-14-2025 End: 02-14-2025 Office outpatient visit 25 minutes Jr. Evangelist Lucero Stepkvng DO Work Phone: [facility] Comment on above: Left knee pain, unsp ecified chronicity (Primary Dx); Acute lateral meniscus tear of left knee, initial encounter; Acute medial meniscus tear, left, initial encounter Start: 02-14-2025 End: 02-14-2025 ambulatory EVANGELIST BRANCH Not Available Start: 02-14-2025 End: 02-14-2025 Bamboo flowsheet JrNay Evangelist Jazmine Stepanic DO Work Phone: [facility] Start: 02-14-2025 End: 02-14-2025 Bamboo flowsheet JrNay Evangelist Jazmine Stepanic DO Work Phone: [facility] Start: 02-13-2025 End: 02-13-2025 ambulatory John LAYTON Facility:[facility] Start: 02-01-2025 End: 02-01-2025 ambulatory EVANGELIST BRANCH Not Available Start: 01-17-2025 End: 01-17-2025 Office outpatient visit 15 minutes JrNay Evangelist Jazmine Stepkvng DO Work Phone: [facility] Comment on above: Left knee pain, unsp ecified chronicity Start: 01-17-2025 End: 01-17-2025 ambulatory EVANGELIST BRANCH Not Available Start: 01-17-2025 End: 01-17-2025 Bamboo flowsheet Jr. Evangelist Jazmine Stepanic DO Work Phone: [facility] Start: 01-17-2025 End: 01-17-2025 Bamboo flowsheet Jr. Evangelist Jazmine Stepanic DO Work Phone: [facility] Start: 09-05-2024 End: 09-05-2024 ambulatory John LAYTON Facility:[facility] Start: 09-05-2024 End: 09-05-2024 Patient encounter procedure John Giovanni LAYTON [facility] Start: 05-09-2024 End: 05-09-2024 ambulatory John Giovanni LAYTON Facility: [place] Start: 05-09-2024 End: 05-09-2024 Patient encounter procedure John Davila CALIN [facility] Start: 04-27-2024 End: 04-27-2024 ambulatory [facility] Work Phone: Start: 04-27-2024 End: 04-27-2024 Patient encounter procedure Count Includes [facility] Work Phone: Start: 04-22-2024 Non-patient / Non-visit Count Includes [facility] [employer] Work Phone: Start: 11-11-2023 End: 11-11-2023 ambulatory Tray Oberer Other [facility] Other Start: 11-11-2023 Telephone encounter Tray Oberer [facility] Start: 11-09-2023 End: 11-09-2023 Patient encounter procedure John Giovanni LAYTON [facility] Start: 10-18-2023 End: 10-18-2023 ambulatory Tray Oberer Other [facility] Other Start: 10-18-2023 Telephone encounter Tray Oberer [facility] Start: 04-26-2023 End: 04-26-2023 ambulatory Tray Oberer Other [facility] Other Start: 04-26-2023 Encounter for genera l adult medical examination without abnormal findings Tray Reese [facility] Start: 04-26-2023 Periodic preventive med est patient 40-64yrs Tray Reese [facility] Start: 03-15-2023 End: 03-15-2023 ambulatory Tray Reese Other [facility] [facility] Other Start: 03-15-2023 Telephone encounter Tray Reese [facility] Start: 07-16-2022 End: 07-16-2022 ambulatory Tray Reese Facility:[facility] Start: 07-16-2022 End: 07-16-2022 Departed Referred DO Tray Reese Work Phone: [facility] [place] Start: 07-06-2022 ambulatory Fatou smith MD Work Phone: Urology Start: 06-12-2022 End: 06-12-2022 Patient encounter procedure John LAYTON [facility] Start: 04-28-2022 Encounter for genera l adult medical examination without abnormal findings DR TRAY REESE [facility] Start: 04-27-2022 End: 04-28-[address] TRAY REESE Facility:[facility] Start: 04-27-2022 Telephone encounter Tray Reese [facility] Start: 04-25-2022 End: 04-26-[address] TRAY REESE Facility:[facility] Start: 04-25-2022 End: 04-26-2022 Encounter for general adult medical examination without abnormal findings DR TRAY REESE Facility:[facility] Start: 04-17-2022 End: 04-17-2022 ambulatory Tray Reese Other [facility] Other Start: 04-17-2022 Encounter for genera l adult medical examination without abnormal findings Tray Reese [facility] Start: 04-17-2022 Periodic preventive med est patient 40-64yrs Tray Joneshemal [facility] Procedures Date Procedure Procedure Detail Performing Clinician Start: 01-17-2025 Radiologic examinati on knee 1/2 views Jr. Evangelist Brasher DO Work Phone: Start: 04-25-[address] TRAY CURRAN Comment on above: Performed By: #### P [facility] #### [facility] [address] [place] [address] Dr. Shelby Travis Extraction of wisdom tooth [place] History of repair of musculotendinous cuff of shoulder H/O rotator cuff surgery History of tonsillectomy Gre arnaud [place] Plan of Treatment Date Care Activity Detail Author Start: 05-16-2025 ambulatory Ambulatory Facility:[facility] Start: 02-14-2025 End: 02-14-2025 Patient encounter procedure [facility] Comment on above: Arrived Start: 01-17-2025 End: 01-17-2025 Patient encounter procedure 01/17/2025 2:30 PM EST Office Visit [facility] [address] [place] [address] Jr. Evangelist Brasher, DO [address] [place] [address] Arrived [facility] Comment on above: Arrived Start: 01-17-2025 End: 01-17-2026 MR Knee - left WO contrast MR knee left wo IV contrast Imaging Routine Left knee pain, unspecified chronicity Expected: 01/17/2025 (Approximate), Expires: 01/17/2026 [facility] Work Phone: Comment on above: Expected: 01/17/2025 (Approximate), Expires: 01/17/2026 Start: 07-16-2022 Influenza vaccination INFLUENZA (#1) [facility] Start: 2015 PROSTATE CANCER SCREENING DISCUSSION PROSTATE CANCER SCREENING DISCUSSION [facility] Start: 2010 SHINGRIX VACCINE (1 of 2) SHINGRIX VACCINE (1 of 2) [facility] Start: 2005 COLOGUARD (FIT-DNA) COLOGUARD (FIT-D NA) [facility] Start: 2005 Colonoscopy COLONOSCOPY [facility] Start: 2005 COLORECTAL CANCER SCREENING COLORECTAL CANCER SCREENING [facility] Start: [address] COLONOGRAPHY [facility] Start: 2005 DIABETES SCREEN DIABETES SCREEN [facility] Start: 2005 FECAL OCCULT BLOOD FECAL OCCULT BLOO D [facility] Start: 2005 SIGMOIDOSCOPY SIGMOIDOSCOPY [facility] Start: 1995 LIPID SCREEN LIPID SCREEN [facility] Start: 1979 Urine microalbumin profile DTAP,TDAP,TD (1 - Tdap) [facility] Start: 1978 HEPATITIS C SCREENING HEPATITIS C SC REENING [facility] Start: 1978 HIV SCREENING HIV SCREENING [facility] Start: 1972 Adult depression screening assessment DEPRESSION SCREENING [facility] Start: 05-25-1961 COVID-19 VACCINE (#1) COVID-19 VACCI NE (#1) [facility] URINALYSIS, REFLEX MICROSCOPIC URINALYSIS, REFLEX MICROSCOPIC Lab Routine Screening for genitourinary condition Ordered: 07/06/2022 [facility] Work Phone: Comment on above: Ordered: 07/06/2022 Immunizations Immunization Date Immunization Notes Care Provider Tenzin armenta 05-11-2014 tetanus toxoid, reduced diphtheria toxoid, and acellular pertussis vaccine, adsorbed Tray Oberer Other [facility] 06-06-2009 DTaP, unspecified formulation [email or web address] [facility] 06-06-2009 measles, mumps and rubella virus vaccine [email or web address] [facility] 06-06-2009 poliovirus vaccine, unspecified formulation [email or web address] [facility] NEGATED: Highlighted row has not occurred!06-12-2022 SARS-CoV-2 mRNA (tozinameran 5y-11y) vaccine John LAYTON [facility] NEGATED: Highlighted row has not occurred!04-17-2022 influenza, seasonal, injectable Patient Objection Tray Oberer Other [facility] Other NEGATED: Highlighted row has not occurred!04-16-2020 influenza, seasonal, injectable Patient Objection Tray Oberer Other [facility] Other NEGATED: Highlighted row has not occurred!04-13-2019 influenza, seasonal, injectable Patient Objection Tray Oberer Other [facility] Other Payers Date Payer Category Payer [facility] [facility] (unspecified) [employer]ETNA [id number] 2023 Private Health Insurance [id number] 2022 Self-pay [id number] 2022 Unknown [id number] 2021 Private Health Insurance CIGNA CIGNA OAP [id number] 2021-Present [phone] [address] [place] [address] Open Access [id number] 1960 Unknown [id number] 9.2.593 1960 Unknown [id number] 2.16.840.1.109554.3.57 9.2.593 1960 Unknown [id number] [id number] 9.2.727 1960 Unknown [id number] 2.16.840.1.333589.3.57 9.2.727 1960 Unknown [id number] [id number] 9.2.727 1960 Unknown [id number] 2.16.840.1.461386.3.57 9.2.727 1960 Unknown [id number] 2.16.840.1.137886.3.57 9.2.1259 1960 Unknown [id number] 2.16.840.1.674567.3.57 9.2.1259 1960 Unknown [id number] 2.16.840.1.182328.3.57 9.2.1259 1960 Unknown [id number] [id number] 9.2.1259 1959 Private Health Insurance [id number] Unknown [id number] 9.2.531 Social History Date Type Detail Facility Sex Assigned At Mr. Youth Other Tobacco smoking status No Smoking Status Entered [facility] [employer] Tobacco smoking status [facility] Tobacco smoking consumption unknown [facility] Start: 1960 Sex Assigned At Not on file C [facility] Start: 06-26-2022 End: 07-06-2022 Exposure to SARS-CoV-2 (event) Not sure [facility] Work Phone: Start: 05-05-2019 Tobacco smoking status NHIS Ex-smoker (finding) [facility] Start: 1960 Sex Assigned At Male [facility] Tobacco smoking status No Smoking Status Entered [facility] Start: 05-09-2024 Tobacco smoking status Never smoked tobacco (finding) [facility] Tobacco smoking status Never [facility] Functional Status Date Assessment Result Facility 05-09-2024 Functional Status N/A [facility] 06-12-2022 Functional Status N/A [facility] Clinical Notes 08-15-2006 to 02-14-2025 Jr. Evangelist Brasher, DO - 02/14/2025 2:30 PM EDTJr. Evangelist Brasher, DO - 01/17/2025 2:30 PM EST Note Date & Type Note Facility 02-14-2025 History of Present illness Narrative Images from the original note were not included. HISTORY OF PRESENT ILLNESS: EST PT Fatou Arroyo is an 64 y.o. @ male. (EST PT) - (L) KNEE DISCOMFORT FOR YEARS , WORSE SINCE INJURY (DOI: 01/31/25) ; S/P MRI 02/01/25 @[facility] 01/17/25 IN EPIC MRI 02/01/25 IN EPIC NO MDP / PREDNISONE NO CORTISONE INJ NO PT NO PAIN MGMT ADMITS DOING BETTER. DENIES KNOT POSTERIORLY IN KNEE THAT WAS PREVIOUSLY CAUSING DISCOMFORT. DENIES PAIN / SWELLING. SWELLING / TIGHTNESS HAS DECREASED. ADMITS HE IS CAREFUL WITH KNEELING. DENIES POPPING / GRINDING / INTERMITTENT CLICKING WITH GOING UP STAIRS IN THE AM. DENIES WAKING HS. DENIES SUPERIOR CALF SORENESS. NO PAIN MEDS. DENIES ICING / HEATING. DENIES TOPICALS. ANNIE: 01/31/25 (15 DAYS) - AT WORK: KNEE POPPED & BURNING SENSATION THAT RADIATED POSTERIORLY INTO ANKLE / BUTTOCKS ; DISCOMFORT LATERALLY PT NOTES POSSIBLE HISTORY OF (L) TORN MENISCUS ALLERGIES: No Known Allergies HOME MEDICATIONS: Current Outpatient Medications Medication Instructions cholecalciferol (VITAMIN D-3) 5,000 Units Saw [place] 160-15 MG capsule Take by mouth vitamin C 250 mg, Oral zinc gluconate 50 mg, Oral PHYSICAL EXAM: Knee Musculoskeletal Exam Gait Gait is normal. Inspection Leg length disparity: no discrepancy Left Erythema: none Effusion: mild Edema: none Ecchymosis: none Deformity: none Alignment: normal Palpation Left Increased warmth: none Masses: none Tenderness: present Medial joint line: moderate Range of Motion Left Left knee range of motion is normal and full. Active extension: 0 Passive extension: 0 Active flexion: 125 Passive flexion: 125 Range of motion additional comments: + PAIN ON TERMINAL FLEXION AND EXTENSION Strength Left Extension: 5/5. Extension is affected by pain. Flexion: 5/5. Flexion is affected by pain. Instability Left Instability signs: none - stable Varus stress grade: normal Valgus stress grade: normal Anterior drawer: normal Medial Maya test: positive Lateral Maya test: positive Neurovascular Left Left knee neurovascular exam is normal. Pulses - PT: normal Posterior tibial: 2+ Capillary refill: warm and well-perfused Special Signs Left Left knee special signs are normal. Patellar apprehension: none General Constitutional: appears stated age Labored breathing: no Psychiatric: normal mood and affect Neurological: alert Skin: intact Lymphadenopathy: none Vitals: There is no height or weight on file to calculate BMI. Tobacco Use: Not on file Alcohol Use: Not on file IMAGING: Procedures No orders of the defined types were placed in this encounter. ASSESSMENT: No diagnosis found. PLAN: We have discussed his MRI, physical exam, and symptoms today at length. We have recommended a diagnostic and operative arthroscopy of his left knee today for medial and lateral meniscus tears. We'll see him back on the day of surgery. Patient is in agreement with said treatment and understands the risks and benefits of surgical intervention. We have discussed both surgical and nonsurgical treatment options with the patient and the risks and benefits associated with both. The patient is requesting surgical intervention because the patient's symptoms were affecting the patient's activities of daily living and ability to sleep. The patient's symptoms were unresponsive to outpatient treatment options. After lengthy discussions involving but not limited to both surgical and nonsurgical treatment options the patient has requested surgical intervention and we will see them back on the day of surgery. The patient understands the risks of said treatment. Questions answered in laymen terms at the bedside. The diagnosis, home exercise plan and any ongoing restrictions/ recommendations reviewed. If unable to be reached in office, I recommend evaluation at nearest Emergency Room if any symptoms worsened or new symptoms develop for requiring urgent evaluation. documented in this encounter [facility] 02-13-2025 Note Patient Education Oncology Prostate Cancer Screening Prostate [...] recommendations. In general, screening is recommended if: ??? You are age 50 to 70 and [...] have a 10- to 15-year life expectancy. ??? You are younger than age 50, and [...] In general, screening is not recommended if: ??? You are younger than age 40. ??? You are between the ages of 40 and 49 and you have no risk factors. ??? You are 70 years of age or [...] high PSA levels may be caused by: ??? Prostate cancer. ??? An enlarged prostate that is not caused by cancer (benign prostatic hyperplasia, or BPH). This condition is very common in older men. ??? A prostate gland infection (prostatitis) or urinary tract infection. ??? Certain medicines such as male hormones (like [...] you may need more tests, such as: ??? A physical exam to check the size of your prostate gland, if not done as part of screening. ??? Blood and imaging tests. ??? A procedure to remove tissue samples from your prostate gland for testing (biopsy). This is the only way to know for certain if you have prostate cancer. What are the benefits of prostate cancer screening? Screening can help to identify cancer at an early stage, before symptoms start and when the cancer can be treated more easily. ??? There is a small chance that screening [...] Questions to ask your health care provider ??? When should I start prostate cancer screening? What is my risk for prostate cancer? How often do I need screening? What type of screening tests do I need? How do I get my test results? What do my results mean? Do I need treatment? Where to find more information ??? The [place] Cancer Society: www.cancer.org ??? [place] U[employer] Association: www.auanet.org Contact a health care provider if: ??? You have difficulty urinating. ??? You have pain when you urinate or ejaculate. ??? You have blood in your urine or semen. ??? You have pain in your back or in the area of your prostate. Summary ??? Prostate cancer is a common type of cancer in men. The prostate gland (more content not included)... [facility] 01-17-2025 History of Present illness Narrative Images from the original note were not included. NAME: Fatou Arroyo : 1960 HISTORY OF PRESENT ILLNESS: NEW PT Fatou Arroyo is an 64 y.o. @ male. (NEW PT) - (L) KNEE DISCOMFORT FOR YEARS , WORSE ~2 WKS SINCE INJURY RECENT INJURY 01/31/25 (2 WKS) - AT WORK: KNEE POPPED & BURNING SENSATION THAT RADIATED POSTERIORLY INTO ANKLE / BUTTOCKS ; DISCOMFORT LATERALLY XRAY TODAY, 01/17/25 IN EPIC NO MRI NO MDP / PREDNISONE NO CORTISONE INJ NO PT NO PAIN MGMT INJURY 2 WKS AGO: BURNING SENSATION POSTERIORLY THAT RADIATED INTO FOOT AND BUTTOCKS. LATERAL ACHING / SORE DISCOMFORT - WORSENS WITH STANDING / WALKING. DENIES SWELLING. DENIES BRUISING. ADMITS STIFFNESS / TIGHTNESS. LIMITED ROM - DIFFICULTY KNEELING. ADMITS CLICKING WITH STEPS / IN THE MORNING. DENIES POPPING. DENIES GRINDING. DENIES N/T. ADMITS HE GETS [facility] HS WITH EXTENDING LEG. SUPERIOR CALF SORENESS. WAKING HS WITH PAIN. MOTRIN FOR 10 DAYS - WITH RELIEF. HEATING / ICING FOR ~3 DAYS POST-INJURY - WITH RELIEF. NO TOPICALS. PT NOTES POSSIBLE HISTORY OF (L) TORN MENISCUS PAST MEDICAL HISTORY: No past medical history on file. PAST SURGICAL HISTORY: No past surgical history on file. SOCIAL HISTORY: Social History Occupational History Not on file Tobacco Use Smoking status: Not on file Smokeless tobacco: Not on file Substance and Sexual Activity Alcohol use: Not on file Drug use: Not on file Sexual activity: Not on file ALLERGIES: Not on File HOME MEDICATIONS: No current outpatient medications REVIEW OF SYSTEMS: Review of Systems Vitals: There is no height or weight on file to calculate BMI. Tobacco Use: Not on file Alcohol Use: Not on file PHYSICAL EXAM: Knee Musculoskeletal Exam IMAGING: Procedures No orders of the defined types were placed in this encounter. ASSESSMENT: No diagnosis found. PLAN: We have discussed his case with him at length including his x-rays physical exam and symptoms today. We recommended an MRI of his left knee for medial meniscus tear. We'll see him back following his MRI in 3 weeks. We have discussed his restrictions and home exercise program in the interim. Questions answered in laymen terms at the bedside. The diagnosis, home exercise plan and any ongoing restrictions/ recommendations reviewed. If unable to be reached in office, I recommend evaluation at nearest Emergency Room if any symptoms worsened or new symptoms develop for requiring urgent evaluation. documented in this encounter [facility] 05-09-2024 Hospital Discharge instructions Patient Education 05/09/2024 [...] treatment? Where to find more information The [place] [employer] Society: www.cancer.org [place] U[employer] Association: www.auanet.org Contact a health care [...] provider. Document Revised: 04/27/2022 Document Reviewed: 04/27/2022 [employer] Patient Education 2022 [employer] Follow Up Care 02/08/2024 13:32:47 With:CALIN WATERS, John Davila, URL Address: [address] [place], [place] [id number]- When: Unknown Comments:3-4 mos w/ PSA [facility] 05-09-2024 Note Chief Complaint re referral [...] voice recognition art (more content not included)... [facility] Comment on above: Result Comment: Elec tronically Signed By: John LAYTON MD\.br\Date and Time Signed: 05/09/24 16:52 EDT\.br\Electronically Co-Signed By: Geni Hale\.br\Date and Time Co-Signed: 05/09/24 16:20 EDT 10-22-2023 Hospital Discharge instructions [facility] 10/22/2023 14:15:28 With:John LAYTON MD, URL Address: [address] [place], [place] [id number]- When: Unknown [facility] 10-18-2023 Evaluation note Encounter Date Diagnosis Assessment Notes Oct, Elevated PSA (ICD-10 - R97.20) Mr. Youth Other 06-12-2023 Evaluation note* Encounter Date Diagnosis [...] total PS A in 6 months at [facility] labRTO 1 year preceded by fasting CBC, BMP, hepatic panel, lipid profile, total PSA at [facility] and sooner as needed or pending above. Mr. Youth Other 05-01-2023 Evaluation note* Encounter Date Diagnosis Assessment Notes Treatment Notes Treatment Clinical Notes March, Hypercholesterolemia (ICD-10 - E78.00) March, Elevated PSA (ICD-10 - R97.20) Mr. Youth Other 08-22-2022 NotePatient Outreach (UROLMN) FATOU ARROYO ([id number]) 1960 Date Time Provider Department 07/06/22 FATOU GAFFNEY During your visit today, we recorded the following information about you: Allergies As of Date: 07/06/2022 (No Known Allergies) Date Reviewed: 07/06/2022 Reviewed by: Franci Fraga Ma - Fully Assessed Visit Diagnosis:Screening for genitourinary condition [Z13.89] Order(s):URINALYSIS, REFLEX MICROSCOPIC [OGQ3417] Order #: [id number]. 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 Author Type: Physician Type: Progress Notes Filed: 07/06/2022 7:13 PM Note Text: [facility] NEW PATIENT HISTORY AND PHYSICAL EXAM PATIENT INFO: Fatou Arroyo 61 year old REFERRING M.D.: Jude Mei MD [address] [facility] [address] This consult was requested by Dr. Mei for an opinion regarding peyronies disease, and my final recommendations will be communicated to the requesting health care provider by way of the shared medical record for internal providers or letter via the [address] [employer] for external providers. HISTORY Chief [...] ASSESSMENT/PLAN: 1. Peyronie's d (more content not included)...[facility] 06-12-2022 Hospital Discharge instructions Patient Education [...] including vitamins, herbs, eye drops, creams, and frud-yst-bcdgveh medicines. This also includes: ?Medicines to assist [...] 12/04/2005 Document Revised: 10/14/2018 Document Reviewed: 08/08/2018 [employer] Patient Education 2020 [employer] 06/12/2022 09:22:32 Calorie Counting for Weight Loss [...] 11/01/2006 Document Revised: 07/21/2019 Document Reviewed: 10/01/2017 [employer] Patient Education [employer] Follow Up Care 05/06/2022 10:37:31 With:CALIN WATERS, John Davila, URL Address: When:Within 4 Year(s) Comments:w/PSA F/T [facility] 06-13-2022 Evaluation note* Encounter Date Diagnosis Assessment Notes Treatment Notes Treatment Clinical Notes Apr, Elevated PSA (ICD-10 - R97.20) Mr. Youth Other 06-03-2022 Evaluation note* Encounter Date Diagnosis [...] is going to get them done at [facility]. He is going to send us his work wellness form for completion RTO 1 year preceded by fasting labs (I will use the above lab results to determine what he needs next year) and sooner as needed or pending above. Mr. Youth Other 10-01-2006 History general Narrative - Reported* Type Description Date Medical History Hypercholesterolemia Medical History OA Rt Shoulder (X-Ray) Surgical History Tonsillectomy 1962 Surgical History Bone graphs below teeth Surgical History Vascectomy 08/2006 Surgical History right shoulder surgery 2008 Mr. Youth Other Evaluation + Plan note Future Appointments Appointment Date:09/25/2022 08:00:00 AM Scheduled Provider:John LAYTON MD Location:[facility] Appointment Type:URO Office Visit Diagnostic Tests Pending * PSA Free & Total 06/12/22 [facility] Evaluation + Plan note Future Appointments Appointment Date:09/05/2024 01:00:00 PM Scheduled Provider:John LAYTON MD Location:[facility] Appointment Type:URO Office Visit Diagnostic Tests Pending * PSA Free & Total 05/09/24 [facility] Evaluation note* Diagnosis Screening for genitourinary condition Screening for other and unspecified genitourinary condition [facility] Work Phone: Evaludbrgh noteNo InformationNort [employer] Other evaluation note* Diagnosis Left knee pain, unspecified chronicity [facility] Diagnosis Left knee pain, unspecified chronicity- Primary Acute lateral meniscus tear of left knee, initial encounter Acute medial meniscus tear, left, initial encounter [facility] Narrative No data available for this section [facility] Hospital Discharge instructions No data available for this section [facility] Progress note No data available for this section [facility] Reason for referral (narrative) Referred by: John LAYTON MD [facility] Summary Purpose Family History Relationship Condition Age at Onset Recorded Date/T [...] sister High blood cholesterol Unknown Advance Directives Advance Directive Response Recorded Date/ Time Advance Directives No May 01 12:37pm Chief Complaint and Reason for Visit Chief Complaint R19.04 Chief Complaint 6 month/labs Reason for Referral Reason evaluate and treat Diagnosis 1 Elevated PSA (R97.20 ) Referral Organization [facility] Referring Provider First Name Tray Referring Provider Last Name Oberer Referring Provider Specialty Family Prac polly Referred Organization [facility] Referred Provider John Layton Referred [address],[place], [place],[address] Referred Provider Specialty Urology Referral Priority Routine Additional Source Comments (unrecognized sect ion and content) No Status Records FoundNo Status Records FoundNo Status Records FoundNo Status Records FoundNo Status Records Found INFORMATION SOURCE (unrecogn ized section and content) DATE CREATED AUTHOR 05/01/2022 Mau Mahoney [facility] DATE CREATED AUTHOR AUTHOR'S ORGANIZ ATION 07/10/2022 [facility] DATE CREATED AUTHOR AUTHOR'S ORGANIZ ATION 08/12/2022 [facility] DATE CREATED AUTHOR AUTHOR'S ORGANIZ ATION 02/16/2025 [facility] DATE CREATED AUTHOR AUTHOR'S ORGANIZ ATION 02/17/2025 [facility] EPIC REASON FOR VISIT (unrecogniz ed section and content) Reason Comments Pain Reason Comments Pain Care Team (unrecognized sect ion and content) Team Status: Inactive Member Role Status Dates Tray Oberer , DO Primary Care Provider Active Eliezer Tejada , DO Attending Provider Active Team Status: Active Member Role Status Dates Tray Oberer , DO Primary Care Provider Active Team Status: Active Member Role Status Dates Tray Oberer , DO Primary Care Provide r, Attending Provider Active Start: April 22, 2024 Team Status: Inactive Member Role Status Dates Tray Oberer , DO Primary Care Provide r, Attending Provider Active Start: April 27, 2024 End: April 27, 2024 Source Comments (unrecognize d section and content) In the event this informatio n is protected by the Federal Confidentiality of Alcohol and Drug Abuse Patient Records regulations: The Federal rules restrict any use of the information to criminally investigate or prosecute any alcohol or drug abuse patient.[facility] Goals (unrecognized section and content) [...] BE BASED ON THE PRIMARY CLINICAL RECORDS. [employer] ([employer] provides no warranty or guarantee of the accuracy or completeness of information in this document.
[2025-04-21 07:34] LABS: Alanine Aminotransferase 32 U/L (16-63); Albumin Level 3.4 g/dL (3.4-5.0); Alkaline Phosphatase 50 U/L (46-116); Anion Gap 11.8; Aspartate Amino Transferase 19 U/L (15-37); BUN Creatinine Ratio 17.7; Bilirubin Direct 0.1 mg/dL (0.0-0.2); Bilirubin Total 0.5 mg/dL (0.2-1.0); Calcium 8.6 mg/dL (8.5-10.1); Carbon Dioxide 30.6 mmol/L (21.0-32.0); Chloride 107 mmol/L (98-107); Estimated GFR (African America >60 (>=60 mL/min/1.73m^2); Estimated GFR (Non-African Ame 56 (>=60 mL/min/1.73m^2); Globulin 3.3 g/dL; Glucose 95 mg/dL (74-106); Potassium 4.4 mmol/L (3.5-5.1); Sodium 145 mmol/L (136-145); Total Protein 6.7 g/dL (6.4-8.2)
[2025-04-21 07:45] LABS: Prostate Specific Antigen Scrn 6.79 ng/mL (<=4.00)
[2025-04-21 07:58] LABS: Cholesterol 218 mg/dL (<=200); HDL Cholesterol 49 mg/dL (40-60); Triglycerides 66 mg/dL (<=150); VLDL CHOLESTEROL 13.2 mg/dL
[2025-04-21 07:59] LABS: Chol HDL Ratio 4.4
== END 2025-04-21 06:33 | disposition home or self-care (01) ==
LOC: LAB 06:35
PROVIDERS: PCP Family Medicine; Visit Provider Family Medicine
DX: E78.00 Pure hypercholesterolemia, unspecified (principal); E78.2 Mixed hyperlipidemia; Z12.5 Encounter for screening for malignant neoplasm of prostate; R97.20 Elevated prostate specific antigen [PSA]
CPT/HCPCS: 36415; 80053; 80061; 82248; G0103